=== PATIENT | male | born 1960 | race Caucasian/White ===

== ENCOUNTER 2019-03-16 06:49 | Inpatient (IN) | payer BC, SELFPAY ==
[2019-03-16] VITALS (9 sets, daily range): BP systolic 132–153; BP diastolic 81–96; PULSE 78–96; RESP 15–19; TEMP 36.2–36.7; O2SAT 94–97; BMI 33.3; BMI 29.8
--- NOTE | 2019-03-16 07:06 | DI.CT.S_ITS ---
PROCEDURE: CT HEAD/BRAIN WO CON INDICATIONS: right sided weakness ?LVO TECHNIQUE: Noncontrast 4.5 mm thick angled axial sections acquired from the foramen magnum to the vertex, with coronal and sagittal reformats. For radiation dose reduction, the following was used: automated exposure control, adjustment of mA and/or kV according to patient size. COMPARISON: None. FINDINGS: Image quality: Excellent. CSF spaces: Basal cisterns are patent. No extra-axial fluid collections. Ventricles are normal in size and shape. Brain: No midline shift. No intracranial masses or hemorrhage. Kraft-white matter interface is normal. Severe atherosclerosis of the right vertebral artery and possibly also involving the basilar artery are noted. Mild atherosclerosis is also present involving the right distal internal carotid artery. Skull and face: Calvarium and visualized facial bones are intact, without suspicious lesions. Sinuses: Visualized sinuses and mastoids are clear. IMPRESSION: 1. No acute intracranial hemorrhage. 2. Atherosclerotic changes of the intracranial portions of the bilateral internal carotid arteries and right vertebral artery. Note: The preliminary [facility] report and the final report are concordant. Dictated by: Zachary Morelos M.D. on 03/16/2019 at 6:48 Approved by: Zachary Morelos M.D. on 03/16/2019 at 6:51
--- NOTE | 2019-03-16 07:07 | DI.CT.S_ITS ---
PROCEDURE: CT ANGIO HEAD AND NECK INDICATIONS: right sided weakness LVO? TECHNIQUE: Pre-contrast 4.5 mm thick sections acquired from the foramen magnum to the vertex. After the administration of intravenous contrast, 1 mm thick sections acquired from the aortic arch through the [place]. Post-contrast 4.5 mm thick sections then re-acquired from the foramen magnum to the vertex. 3-dimensional masbacc-ulzajsiep-yfxoqzxirm (MIP) and/or volume rendering reformats were acquired of the central intracranial vasculature and neck separately. COMPARISON: None. FINDINGS: Image quality: Excellent. BRAIN: CSF spaces: Ventricles are normal in size and shape. Basal cisterns are patent. No extra-axial fluid collections. Brain: No midline shift. No intracranial bleeds or masses. Kraft-white matter interface appears intact. Skull and face: Calvarium and facial bones appear intact, without suspicious lesions. Orbits appear normal. Sinuses: Sinuses and mastoids are clear. HEAD CT ANGIOGRAPHY: Anterior circulation: Intracranial internal carotid arteries are normal in size and flow. There is mild atherosclerosis of the intracranial portion of the right internal carotid artery. No high-grade narrowing is evident. The flow within the paired anterior cerebral arteries is normal and symmetric. The flow within the middle cerebral arteries is normal and symmetric. The anterior communicating artery is seen. No aneurysms are seen. Posterior circulation: The right vertebral artery is dominant when compared to the left and terminates as the basilar artery. The left vertebral artery terminates as the posterior-inferior cerebellar artery, which is an anatomic variant. Mild to moderate atherosclerosis of the distal right vertebral artery and proximal aspect of the basilar artery is present without high-grade narrowing. Flow within the posterior cerebral arteries is normal and symmetric. No aneurysms are seen. NECK CT ANGIOGRAPHY: Carotid system: The great vessels demonstrate a conventional anatomy as they arise from the aortic arch. The origins of the common carotid arteries appear patent. The common carotid arteries demonstrate normal caliber and courses. The bifurcation regions are both widely patent. The internal carotid arteries demonstrate normal calibers and courses. Posterior circulation: The origins of the vertebral arteries both appear widely patent. The more superior extracranial portions of both vertebral arteries also demonstrate normal courses and calibers. They join to form a normal appearing basilar artery. Soft tissues: There is a heterogeneous low attenuation nodule identified involving the left thyroid lobe. Otherwise, the imaged neck soft tissues demonstrate no suspicious abnormalities. Bones: No suspicious bony lesions. Visualized cervical spine appears normally aligned. Prominent degenerative changes of the cervical spine are present. IMPRESSION: 1. Mild to moderate atherosclerosis involving the right intracranial internal carotid artery, right distal vertebral artery, and proximal right basilar artery without high-grade narrowing or occlusion. Intracranial vessels are otherwise widely patent. There are no aneurysms or vascular malformations. 2. Patent and otherwise unremarkable bilateral cervical carotid and vertebral arteries without significant atherosclerosis. There is no high-grade narrowing, occlusion, evidence to suggest dissection, or aneurysm. 3. No abnormal enhancement of the brain. 4. Right thyroid nodule. The thyroid ultrasound is recommended for further evaluation, which may be performed on a nonemergent basis. Any quantitative measurements of stenosis were performed using NASCET criteria. Dictated by: Zachary Morelos M.D. on 03/16/2019 at 6:57 Approved by: Zachary Morelos M.D. on 03/16/2019 at 7:06
[2019-03-16 07:20] LABS: Add Manual Diff / Slide Review NO; Basophils Absolute Auto 100 /uL (0-100); Basophils Percent Auto 0.8 % (0-2); Eosinophils Absolute Auto 100 /uL (0-450); Eosinophils Percent Auto 1.1 % (2-4); Hematocrit 47.3 % (41-53); Hemoglobin 16.5 g/dL (13.5-17.5); Lymphocytes Absolute Auto 1900 /uL (1100-4500); Lymphocytes Percent Auto 26.1 % (25-40); Mean Corpuscular HGB Conc 34.9 % (30-36); Mean Corpuscular Volume 86.1 fL (80-100); Monocytes Absolute Auto 500 /uL (0-900); Monocytes Percent Auto 7.1 % (3-14); Neutrophils Absolute Auto 4600 /uL (1500-7000); Neutrophils Percent Auto 64.9 % (50-75); Platelet Count 190 X10^3/uL (150-400); Red Blood Cell Count 5.49 X10^6/uL (4.5-5.9); Red Cell Distribution Width 13.3 % (11.6-14.8); White Blood Cell Count 7.1 X10^3/uL (4.5-11.0)
--- NOTE | 2019-03-16 07:28 | ED.NEUROSD ---
HPI - Neuro Symptoms/Deficit General Chief Complaint: Neuro Symptoms/Deficit Stated Complaint: Rt side weakness Time Seen by Provider: 03/16/19 06:59 Source: patient and family Mode of arrival: ambulatory Limitations: no limitations History of Present Illness HPI Narrative: Patient is a 58-year-old male who presents with right-sided weakness. He says he was having difficulty walking yesterday. He thought maybe he was sleep it off. However this morning he woke up and it is worse. Today his notices that his speech is different as well. He has no difficulty finding words it is slightly slurred. He denies any chest pain her palpitations. He has weakness in his right arm and leg. His noticed that 2 days ago he was more tired but did not notice any focal deficits. Onset (ago): day(s) Location: speech, right arm, right leg and ataxia Severity: moderate Quality: weak On Anticoagulants: No Related Data Home Medications Medication Instructions Recorded Confirmed No Known Home Medications 03/16/19 03/16/19 Allergies Allergy/AdvReac Type Severity Reaction Status Date / Time paprika Allergy Verified 03/16/19 07:08 Review of Systems Review of Systems ROS Unobtainable: All systems reviewed & are unremarkable except as noted in HPI and below Constitutional Denies chills, Denies fever(s), Denies headache(s), Denies lethargy and Reports weakness Eyes Denies change in vision, Denies eye discharge, Denies irritation and Denies loss of vision ENT Ears, Nose, Mouth, and Throat: Denies change in voice, Denies headache(s), Denies neck pain and Denies sore throat Cardiovascular Denies chest pain, Denies irregular heart rhythm, Denies lightheadedness, Denies palpitations, Denies dyspnea, Denies dyspnea on exertion and Denies orthopnea Respiratory Denies cough, Denies dyspnea, Denies dyspnea on exertion and Denies wheezing Gastrointestinal Gastrointestinal: Denies abdominal pain, Denies change in bowel habits, Denies diarrhea, Denies nausea and Denies vomiting Genitourinary Denies hematuria, Denies flank pain, Denies urinary incontinence and Denies urinary urgency Musculoskeletal Denies neck pain Neurologic Reports as per HPI, Denies headache(s), Reports lack of coordination, Reports focal weakness (Right-sided), Denies loss of vision and Reports weakness Endocrine Denies palpitations Allergic/Immunologic Denies wheezing [facility] Medical History Patient denies significant medical history (Acute) Social History Smoking Status: Never smoker Social History Smoking Status: Never smoker Exam Initial Vital Signs Initial Vital Signs: Vital Signs Temperature 98.1 F 03/16/19 06:58 Pulse Rate 91 H 03/16/19 06:58 Respiratory Rate 17 03/16/19 06:58 Blood Pressure 145/89 H 03/16/19 06:58 Pulse Oximetry 97 03/16/19 06:58 GENERAL: Well-appearing, well-nourished and in no acute distress. HEENT: Head atraumatic,EOMI, pupils reactive, right facial droop CARDIOVASCULAR: Regular rate and rhythm without murmurs, rubs or gallops. RESPIRATORY: Breath sounds equal bilaterally, no wheezes rales or rhonchi. ABDOMEN: Soft, nontender. Normoactive bowel sounds all 4 quadrants. No guarding or rebound. EXTREMITIES: Normal range of motion, no clubbing or edema. Neurovascularly intact NEUROLOGICAL: Alert and oriented x4. Slight slurring of right leg drift to gurney ataxia noted in right leg and right arm. SKIN: Warm, dry, no laceration, no petechiae, no rashes or lesions. Scores NIH Stroke Scale Level of Conciousness: Alert, keenly responsive Ask month/age: Answers both questions correctly. Open/close eyes, close hand: Performs both tasks correctly Best gaze horizontal: Normal Visual thomas: No visual loss Facial palsy: Minor paralysis, flattened nasolabial fold, asymmetry on smiling Left arm drift: No drift for full 10 sec Right arm drift: Drifts down, not to bed Left leg drift: No drift for full 10 sec Right leg drift: Drifts down, not to bed Limb ataxia: Present in two limbs Sensory on face/arms/legs: Normal, no sensory loss Best language: No aphasia, normal Dysarthria: Mild to mod,some slurring Extinction or inattention: No abnormality Total NIH Stroke scale score: 6 Course Orders Ordered: ED Orders 03/16/19 06:57 EKG-12 Lead Stat 03/16/19 07:06 CT head/brain wo con Stat Urine Drug Screen, Rapid Stat 03/16/19 07:07 CT angio head and neck Stat 03/16/19 07:11 Complete Blood Count AUTO DIFF Stat Comprehensive Metabolic Panel Stat Hemoglobin A1C% w Est Avg Glu Stat Lipid Panel Routine Partial Thromboplastin Time Stat Prothrombin Time INR Stat Troponin I Stat 03/16/19 10:04 MR stroke Stat 03/16/19 10:05 Education, smoking cessation ONGOING 03/16/19 10:07 Consult to Occupational Therapy Evaluate & Treat Consult to Physical Therapy Evaluate & Treat Consult to Speech Therapy Evaluate & Treat 03/16/19 10:09 EC echo doppler complete Stat Acetaminophen (Tylenol) 650 mg PO Q6HR PRN PRN Reason: As Needed for Fever/Mild Pain Bisacodyl (Dulcolax) 10 mg PO DAILY PRN PRN Reason: Constipation Calcium Carbonate (Tums) 1,000 mg PO Q4HR PRN PRN Reason: Dyspepsia Enoxaparin Sodium (Lovenox) 40 mg SUBCUT DAILY [facility] Sodium Chloride (Normal Saline 0.9%) 1,000 mls @ 150 mls/hr IV CONT HAYDEN Last Admin: 03/16/19 07:56 Dose: 150 mls/hr Magnesium Hydroxide (Milk Of Magnesia) 30 ml PO DAILY PRN PRN Reason: Constipation Ondansetron HCl (Zofran) 4 mg IV Q8HR PRN PRN Reason: Nausea And Vomiting Sennosides (Senna) 17.2 mg PO BEDTIME PRN PRN Reason: Constipation Discontinued Medications Aspirin (Aspirin Chew) 324 mg PO NOW ONE Stop: 03/16/19 08:10 Last Admin: 03/16/19 08:47 Dose: 324 mg Consultations Consultation #1: Neurology consult, at this time to close to 24 go even if there was large vessel occlusion. Does not appear to be large vessel occlusion., Time: 08:14 Vital Signs - 8 hr 03/16/19 06:58 03/16/19 07:45 03/16/19 08:00 Temperature 98.1 F Pulse Rate 91 H 85 84 Respiratory Rate 17 19 18 Blood Pressure 145/89 H Blood Pressure [Left Arm] 150/84 H 134/88 Pulse Oximetry 97 96 96 03/16/19 08:30 03/16/19 08:54 03/16/19 10:54 Temperature 97.2 F L Pulse Rate 86 91 H 81 Respiratory Rate 16 18 15 Blood Pressure 144/88 H Blood Pressure [Left Arm] 139/87 140/96 H Pulse Oximetry 95 97 96 MDM - Neuro Symptoms/Deficit Lab Data Attestation: I reviewed the patient's lab results. Result diagrams: 03/16/19 07:11 03/16/19 07:11 Lab Results 03/16/19 03/16/19 03/16/19 Range/Units 07:11 07:11 07:11 WBC 7.1 (4.5-11.0) X10^3/uL RBC 5.49 (4.5-5.9) X10^6/uL Hgb 16.5 (13.5-17.5) g/dL Hct 47.3 (41-53) % MCV 86.1 (80-100) fL MCH 30.0 (26-34) PG MCHC 34.9 (30-36) % RDW 13.3 (11.6-14.8) % Plt Count 190 (150-400) X10^3/uL Neut % (Auto) 64.9 (50-75) % Lymph % (Auto) 26.1 (25-40) % Day % (Auto) 7.1 (3-14) % Eos % (Auto) 1.1 L (2-4) % Baso % (Auto) 0.8 (0-2) % Neut # (Auto) 4600 (5568-7386) /uL Lymph # (Auto) 1900 (7443-2988) /uL Day # (Auto) 500 (0-900) /uL Eos # (Auto) 100 (0-450) /uL Baso # (Auto) 100 (0-100) /uL PT 12.8 H (10.1-12.7) SECONDS INR 1.1 (0.9-1.3) APTT 32 (26.4-36.2) SECONDS Sodium 141 (137-145) mmol/L Potassium 3.7 (3.4-5.1) mmol/L Chloride 107 (98-107) mmol/L Carbon Dioxide 23 (22-32) mmol/L BUN 14 (9-20) mg/dL Creatinine 0.90 (0.66-1.25) mg/dL Estimated GFR > 60.0 (>60) mL/min BUN/Creatinine Ratio 15.6 (6-22) Glucose 309 H (80-110) mg/dL Calcium 9.2 (8.4-10.2) mg/dL Total Bilirubin 1.2 (0.2-1.3) mg/dL AST 23 (17-59) IU/L ALT 26 (21-72) IU/L Alkaline Phosphatase 82 (38-126) U/L Troponin I 0.020 (0.01-0.034) ng/mL Total Protein 7.5 (6.3-8.2) g/dL Albumin 4.2 (3.5-5.0) g/dL Globulin 3.3 (1.7-4.1) g/dL Albumin/Globulin Ratio 1.3 (1.0-2.8) Point of Care Testing Glucose POC 271 Urine Dip Bedside Urine Glucose 1000 mg/dl Bedside Urine Bilirubin - Negative Bedside Urine Ketone ++ 40 Urine Specific [place] 1.015 Bedside Urine Occult Blood - Negative Bedside Urine pH 5.0 Bedside Urine Protein - Negative Bedside Urine Urobilinogen - Negative Bedside Urine Nitrite - Negative Bedside Urine Leukocytes - Negative Esterase Imaging Data CT scan - head: Radiologist's impression: PROCEDURE: CT HEAD/BRAIN WO CON INDICATIONS: right sided weakness ?LVO TECHNIQUE: Noncontrast 4.5 mm thick angled axial sections acquired from the foramen magnum to the vertex, with coronal and sagittal reformats. For radiation dose reduction, the following was used: automated exposure control, adjustment of mA and/or kV according to patient size. COMPARISON: None. FINDINGS: Image quality: Excellent. CSF spaces: Basal cisterns are patent. No extra-axial fluid collections. Ventricles are normal in size and shape. Brain: No midline shift. No intracranial masses or hemorrhage. Kraft-white matter interface is normal. Severe atherosclerosis of the right vertebral artery and possibly also involving the basilar artery are noted. Mild atherosclerosis is also present involving the right distal internal carotid artery. Skull and face: Calvarium and visualized facial bones are intact, without suspicious lesions. Sinuses: Visualized sinuses and mastoids are clear. IMPRESSION: 1. No acute intracranial hemorrhage. 2. Atherosclerotic changes of the intracranial portions of the bilateral internal carotid arteries and right vertebral artery. Note: The preliminary [facility] report and the final report are concordant. Dictated by: Zachary Morelos M.D. on 03/16/2019 at 6:48 CT angio: Radiologist's impression: PROCEDURE: CT ANGIO HEAD AND NECK INDICATIONS: right sided weakness LVO? TECHNIQUE: Pre-contrast 4.5 mm thick sections acquired from the foramen magnum to the vertex. After the administration of intravenous contrast, 1 mm thick sections acquired from the aortic arch through the [place] of [place]. Post-contrast 4.5 mm thick sections then re-acquired from the foramen magnum to the vertex. 3-dimensional yvgnvih-eahnrdirj-kjhcrsogqi (MIP) and/or volume rendering reformats were acquired of the central intracranial vasculature and neck separately. COMPARISON: None. FINDINGS: Image quality: Excellent. BRAIN: CSF spaces: Ventricles are normal in size and shape. Basal cisterns are patent. No extra-axial fluid collections. Brain: No midline shift. No intracranial bleeds or masses. Kraft-white matter interface appears intact. Skull and face: Calvarium and facial bones appear intact, without suspicious lesions. Orbits appear normal. Sinuses: Sinuses and mastoids are clear. HEAD CT ANGIOGRAPHY: Anterior circulation: Intracranial internal carotid arteries are normal in size and flow. There is mild atherosclerosis of the intracranial portion of the right internal carotid artery. No high-grade narrowing is evident. The flow within the paired anterior cerebral arteries is normal and symmetric. The flow within the middle cerebral arteries is normal and symmetric. The anterior communicating artery is seen. No aneurysms are seen. Posterior circulation: The right vertebral artery is dominant when compared to the left and terminates as the basilar artery. The left vertebral artery terminates as the posterior-inferior cerebellar artery, which is an anatomic variant. Mild to moderate atherosclerosis of the distal right vertebral artery and proximal aspect of the basilar artery is present without high-grade narrowing. Flow within the posterior cerebral arteries is normal and symmetric. No aneurysms are seen. NECK CT ANGIOGRAPHY: Carotid system: The great vessels demonstrate a conventional anatomy as they arise from the aortic arch. The origins of the common carotid arteries appear patent. The common carotid arteries demonstrate normal caliber and courses. The bifurcation regions are both widely patent. The internal carotid arteries demonstrate normal calibers and courses. Posterior circulation: The origins of the vertebral arteries both appear widely patent. The more superior extracranial portions of both vertebral arteries also demonstrate normal courses and calibers. They join to form a normal appearing basilar artery. Soft tissues: There is a heterogeneous low attenuation nodule identified involving the left thyroid lobe. Otherwise, the imaged neck soft tissues demonstrate no suspicious abnormalities. Bones: No suspicious bony lesions. Visualized cervical spine appears normally aligned. Prominent degenerative changes of the cervical spine are present. IMPRESSION: 1. Mild to moderate atherosclerosis involving the right intracranial internal carotid artery, right distal vertebral artery, and proximal right basilar artery without high-grade narrowing or occlusion. Intracranial vessels are otherwise widely patent. There are no aneurysms or vascular malformations. 2. Patent and otherwise unremarkable bilateral cervical carotid and vertebral arteries without significant atherosclerosis. There is no high-grade narrowing, occlusion, evidence to suggest dissection, or aneurysm. 3. No abnormal enhancement of the brain. 4. Right thyroid nodule. The thyroid ultrasound is recommended for further evaluation, which may be performed on a nonemergent basis. Any quantitative measurements of stenosis were performed using NASCET criteria. Dictated by: Zachary Morelos M.D. on 03/16/2019 at 6:57 ECG Data Attestation: I personally reviewed and interpreted this ECG as follows: Prior ECG tracings: not available for review Interpretation: Sinus rhythm rate 86 T-wave inversion noted in lead 3 no other leads no ST elevation no ST depression MDM Narrative Medical decision making narrative: Patient not a candidate for thrombectomy or tPA. Dr. urias accepts the patient for further workup and evaluation Discharge Plan Departure Patient Disposition: Admitted As Inpatient Clinical Impression: Cerebrovascular accident Discharge Date/Time: 03/16/19 10:35 Interventions: ED Discharge Assessment Last Done: 03/16/19 10:35 Admit Date/Time: 03/16/19 10:23 Admit Provider: Kelly Glover
[2019-03-16 07:30] LABS: INR 1.1 (0.9-1.3); Prothrombin Time 12.8 SECONDS (10.1-12.7)
[2019-03-16 07:32] LABS: PTT Partial Thromboplastin Tim 32 SECONDS (26.4-36.2)
[2019-03-16 07:34] LABS: Alanine Aminotransferase 26 IU/L (21-72); Albumin 4.2 g/dL (3.5-5.0); Albumin Globulin Ratio 1.3 (1.0-2.8); Alkaline Phosphatase 82 U/L (38-126); Aspartate Aminotransferase 23 IU/L (17-59); BUN Creatinine Ratio 15.6 (6-22); Bilirubin Total 1.2 mg/dL (0.2-1.3); Blood Urea Nitrogen 14 mg/dL (9-20); Calcium 9.2 mg/dL (8.4-10.2); Carbon Dioxide 23 mmol/L (22-32); Chloride 107 mmol/L (98-107); Estimated Glomerular Filt Rate > 60.0 mL/min (>60); Globulin 3.3 g/dL (1.7-4.1); Glucose 309 mg/dL (80-110); HEMOLYSIS < 15 (0-50); Potassium 3.7 mmol/L (3.4-5.1); Sodium 141 mmol/L (137-145); Total Protein 7.5 g/dL (6.3-8.2)
[2019-03-16] MEDS: SODIUM CHLORIDE 0.9% 1,000 ML 150 ML IV ×2 (07:56→16:57)
--- NOTE | 2019-03-16 08:02 | PC.NURSE ---
speech, denies fever,vomiting or diarrhea. denies headache or visual changes. reports, felt wooble couple of days ago, today with right sided weakness and speech changes. denies trauma. last solid meal last night.
[2019-03-16] MEDS: ASPIRIN 81 MG TAB 324 MG PO (08:47)
--- NOTE | 2019-03-16 10:04 | DI.MRI.S_ITS ---
PROCEDURE: MR STROKE Pre- and post-contrast brain MRI, non-contrast brain MR angiogram, pre- and postcontrast neck MR angiogram INDICATIONS: R sided hemiparesis, facial droop, ataxia, slurred speech TECHNIQUE: Brain: Noncontrast axial T1 spin echo, axial T2 fast spin echo, sagittal and axial FLAIR, coronal T2 fast spin echo, axial gradient echo, axial diffusion and ADC through the brain. After the administration of contrast, axial 3D VIBE of the cranial vasculature and brain. Brain MRA: Non-contrast 3-D time of flight MR angiogram, with multiple wpmzpwi-hosmhmudn-dljdnwdokz (MIP) reformats performed. Neck MRA: Axial and sagittal TruFISP through the neck. Coronal dynamic MR angiogram during administration of contrast in the arterial and venous phases, with 3-dimenstional lnztxhc-xsdayytoq-ujkfnxbbwr (MIP) reformats constructed from subtraction images. COMPARISON: [facility], CT, CT ANGIO HEAD AND NECK, 03/16/2019, 7:27. [facility], CT, CT HEAD/BRAIN WO CON, 03/16/2019, 7:12. FINDINGS: Image quality: Diagnostic. BRAIN: CSF spaces: Ventricles are normal in size and shape. Basal cisterns are patent. No extra-axial fluid collections. Brain: No intracranial bleeds or mass effects. Kraft-white matter interface is normal. A few small foci of vague areas of increased flair signal are identified within the superior left parietal lobe (image 21, series 19), right frontal lobe (image 19, series 19), and left occipital lobe (image 11, series 19). There is increased signal evident involving the anterior margin of the left april, which demonstrates increased diffusion signal. Corresponding decreased signal intensity is evident on the ADC images. No additional areas of diffusion restriction are present within the brain. Normal intravascular flow voids are present. No abnormal intracranial enhancement. Skull and face: Calvarial marrow signal is normal. Orbits appear normal. Sinuses: There is a small right mastoid effusion. Otherwise, the paranasal sinuses mastoid air cells are clear. BRAIN MR ANGIOGRAM: Anterior circulation: Intracranial internal carotid arteries are normal in size and enhancement. The atherosclerotic irregularity noted involving the intracranial portion of the right internal carotid artery is not evident on MRI. The flow within the paired anterior cerebral arteries is normal and symmetric. The left anterior cerebral artery obtained to exclude slowly through the anterior communicating artery. The flow within the middle cerebral arteries is normal and symmetric. The anterior communicating artery is seen. No stenoses, occlusions, or aneurysms. Posterior circulation: Again, the right vertebral artery is dominant when compared to the left and the right vertebral artery is noted to terminates as the basilar artery. The left vertebral artery appears to terminate as the posterior-inferior cerebellar artery. The atherosclerotic irregularity noted involving the distal right vertebral artery and basilar artery is not readily apparent on MRI. The flow within the posterior cerebral arteries is normal and symmetric. No stenoses, occlusions, or aneurysms. NECK MR ANGIOGRAM: Carotids: Great vessels demonstrate a conventional anatomy as they arise from the aortic arch. The origins of the common carotid arteries appear patent. The calibers and courses of both common carotid arteries are normal. The bifurcation regions appear normal bilaterally. The internal carotid arteries demonstrate normal course and caliber. Posterior circulation: The origins of the vertebral arteries appear patent. More superior portions of both vertebral arteries demonstrate normal course and caliber, and join to form a normal appearing basilar artery. Miscellaneous: Subclavian arteries appear patent. Pre-contrast images through the neck show no soft tissue abnormalities. IMPRESSION: BRAIN MRI: 1. Acute left pontine ischemia without hemorrhagic conversion. 2. No additional areas of acute ischemia within the brain. 3. Vague areas of increased flair signal within the supratentorial brain likely represent mild chronic small vessel ischemic changes. 4. Small inferior right mastoid effusion. 5. No abnormal enhancement or suspicious parenchymal lesions. 6. Small inferior right mastoid effusion. BRAIN MR ANGIOGRAM: No occlusions, aneurysms, or high-grade narrowing of the intracranial vessels. NECK MR ANGIOGRAM: No significant atherosclerosis, occlusions, high-grade narrowing, or aneurysms of the cervical carotid or vertebral arteries. Dictated by: Zachary Morelos M.D. on 03/16/2019 at 12:56 Approved by: Zachary Morelos M.D. on 03/16/2019 at 13:07
--- NOTE | 2019-03-16 10:09 | DI.ECHO.S_ITS ---
[facility] +---------+ : : [address] : : : : [id number] : : : : Phone: [phone]+ Echocardiogram Report + + :Name: JOVANNA SHEIKH Study Date: 03/16/2019 Height: 74 in : :[facility] Weight: 260 lb : : Gender: Male BSA: 2.4 m2 : :: 1960 Age: 58 yrs BP: 144/88 mmHg: :Reason For Study: CVA : :Ordering Physician: Ce : :Hospitalist Performed By: Aretha Turcios : :Referring: PAMELA ALCANTARA : + + Interpretation Summary The left ventricle is normal in size. The ejection fraction is estimated to be 50-55%. There is posterolateral wall hypokinesis. There is basal anterolateral wall hypokinesis. There is mid anterolateral wall hypokinesis. There is apical inferior wall hypokinesis. There is no LV thrombus. The right ventricle is normal in size and function. Injection of contrast documented an interatrial shunt. No significant valvular pathology seen. The ascending aorta is moderately enlarged. The aortic arch is mild-moderately enlarged. The IVC is dilated (diameter is greater than 2.1 cm) yet it collapses greater than 50% with a sniff. This suggests a right atrial pressure of 8 mm Hg. The patient was in normal sinus rhythm during the exam. Procedure: A two-dimensional transthoracic echocardiogram with color flow and Doppler was performed. There is no prior echocardiogram noted for this patient. A saline contrast injection was performed to assess for cardiac shunting. The study quality was technically difficult. The patient was in normal sinus rhythm during the exam. Left Ventricle: The left ventricle is normal in size. There is no ventricular septal defect visualized. There is no thrombus. The ejection fraction is estimated to be 50-55%. There is posterolateral wall hypokinesis. There is basal anterolateral wall hypokinesis. There is mid anterolateral wall hypokinesis. There is apical inferior wall hypokinesis. Diastolic parameters suggest a relaxation abnormality of the left ventricle, consistent with probable normal filling pressures. Right Ventricle: The right ventricle is normal in size and function. Atria: Both atria are normal in size. Injection of contrast documented an interatrial shunt. Mitral Valve: The mitral valve is normal in structure and function. There is trace mitral regurgitation. Aortic Valve: The aortic valve is normal in structure and function. There is no aortic valve stenosis. No aortic regurgitation is present. Tricuspid Valve: The tricuspid valve is not well visualized, but is grossly normal. Pulmonary artery pressures cannot be estimated because of the lack of a measurable TR jet velocity. There is trace tricuspid regurgitation. Pulmonic Valve: The pulmonic valve is not well visualized. Great Vessels: The aortic root is normal size. The ascending aorta is moderately enlarged. The aortic arch is mild-moderately enlarged. The IVC is dilated (diameter is greater than 2.1 cm) yet it collapses greater than 50% with a sniff. This suggests a right atrial pressure of 8 mm Hg. Pericardium/ Pleura There is no pericardial effusion. MMode/2D Measurements & Calculations LVIDd: 5.2 cm LVOT diam: 2.4 cm LVIDs: 3.8 cm Ao root diam: 4.0 cm FS: 27.7 % Aortic Jxn: 3.5 cm EPSS: 1.0 cm asc Aorta Diam: 4.3 cm IVSd: 1.2 cm Ao Arch Diam (Prox Trans): 3.7 cm LVPWd: 1.00 cm LV tobar. diameter/BSA (cm/m^2): 2.2 LV sys. diameter/BSA (cm/m^2): 1.6 LA A2 area: 24.1 cm2 RA long axis: 5.3 cm LA A4 area: 18.4 cm2 RA area: 17.4 cm2 LA length (vol): 5.0 cm RA vol: 48.8 ml LA vol: 75.7 ml RA : 20.1 ml/m2 LA vol index: 31.2 ml/m2 IVC diam: 2.6 cm RVD1 (basal): 3.7 cm RVD2 (mid): 3.3 cm TAPSE: 2.4 cm Doppler Measurements & Calculations Ao V2 max: 105.3 cm/sec LVOT Max Conor: 75.6 cm/sec Ao V2 mean: 81.4 cm/sec LV V1 max P.3 mmHg Ao max P.4 mmHg LV V1 VTI: 14.7 cm Ao mean P.8 mmHg ROLANDO(I,D): 3.1 cm2 Ao V2 VTI: 21.2 cm ROLANDO(V,D): 3.2 cm2 sev ratio: 0.69 ROLANDO indexed to BSA (cm^2/m^2): 1.3 MV E max conor: 51.8 cm/sec PA V2 max: 103.1 cm/sec MV A max conor: 91.0 cm/sec PA V2 mean: 59.1 cm/sec MV E/A: 0.57 PA mean P.7 mmHg Med Peak E' Conor: 4.9 cm/sec PA Accel Time: 0.04 sec E/E' med: 10.5 Lat Peak E' Conor: 7.4 cm/sec E/E' lat: 7.0 E/e' average: 8.7 MV dec time: 0.23 sec MV P1/2t: 67.4 msec MV P1/2t max conor: 51.9 cm/sec SV(LVOT): 65.7 ml MVA(P1/2t): 3.3 cm2 Reading Physician:ANAMARIA
--- NOTE | 2019-03-16 10:25 | PC.NURSE ---
called rn for reports, will call back.
[2019-03-16 11:39] LABS: Cholesterol 197 mg/dL (140-199); HDL Cholesterol 38 mg/dL (40-60); LDL Cholesterol Calculated 125 mg/dL (<100); Triglycerides 170 mg/dL (35-150)
--- NOTE | 2019-03-16 12:03 | ST.IPCSEOM ---
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 He says he was having difficulty walking yesterday. He thought maybe he could sleep it off. However this morning he woke up and his notices that his speech was different as well. Pt described his speech as slower and that his tongue felt thick. He also reported that he noticed a difference between his right and left side and knew he had a stroke . Clinical Swallow Evaluation ordered to r/o/ dysphagia. Subjective Observations Pt had just been transferred to acute care from ED. Pt was accompanied by his . Pt was alert and oriented. He described the events of the last 24 hours leading to hospitalization. Evaluation Liquids Trialed Ice Chips Thin Solids Trialed Puree Dysphagia Mechanical Dysphagia Advanced Mechanical Soft Regular Administration Type Tea Spoon Cup Single Sip Controlled Cup Sip Cup Consecutive Sips Straw Self-Feeding Oral Impairment Mildly Impaired Oral Strategies Upright at 90 degrees Lingual Sweep Controlled Bite/Sip Size Oral Phase Comments Pt presented with a right side facial droop with reduced ROM of the lips/smile and tongue to the right side. Pt's velum was observed to raise with slight deviation toward the left indicating weakness. Dentition adequate for mastication with rotary chew. Mild pocketing on the right side with pt able to clear following cue. Strength of oral structures appeared to be adequate. Pt's speech was observed to be slow in rate and mildly dysarthric. Diadochokineses was observed to be slow and labored. Pharyngeal Impairment WFL Pharyngeal Strategies Sitting Upright (90 deg) Supraglottic Swallow Small Bites and Sips Pharyngeal Phase Comments Pt presented with adequate hyolaryngeal elevation with anterior hyoid movement upon palpation. He did cough with initial ice cube trial, but there were no other coughs/ chokes observed. After each trial the pt noted that the food went down ok. No wet voicing observed following trials that would indicate pharyngeal pooling. Swallow response was WFL. Pt's voice was observed to be hoarse/breathy. The pt and his noted that it is not his usual voice. Potential for a unilateral vocal fold paresis re: right side weakness. Will be monitored to determine needed for ENT consult. Findings Dysphagia Type mild oropharyngeal dysphagia Rehabilitation Potential Excellent Impressions Pt presents with mild oropharyngeal dysphagia with dysarthric speech and a hoarse /breathy voice. He also presented with right side weakness, right facial droop and reduced ROM of the lips/ face and tongue. Pt is right-handed with noted difficulty with raising hand up to his mouth to self-feed. Diet Recommendations Liquids Order Thin Diet Order Regular Medication Recommendations As Tolerated Aspiration Precautions Recommended Precautions Upright at 90 Degrees Effortful Swallow Supraglottic Swallow Treatment Plan Placement Recommendations after Home Discharge Outpatient Therapy Appropriate for Therapy Yes Therapy Recommendations Speech therapy to address oral strength, ROM and increased coordination effecting speech Dysphagia Goals Pt will participate in OM exercises to increase strength , ROM and coordination of structures needed for speech and swallowing. Pt will safely tolerate least- restrictive diet without overt s/sx of SENIOR ASSISTANT MANAGER Follow Up 1-2x/day
--- NOTE | 2019-03-16 12:11 | PC.NURSE ---
PT admitted to room 211 at 1050am. VS taken and IVf infusing at 150cc/hr. He has been admitted to the hospital up in acute care and speech has put pt on a regular diet with thin liquids. Report passed off to ALONDRA Jacob.
--- NOTE | 2019-03-16 12:13 | ST.IPCSEOM ---
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 He says he was having difficulty walking yesterday. He thought maybe he could sleep it off. However this morning he woke up and his notices that his speech was different as well. Pt described his speech as slower and that his tongue felt thick. He also reported that he noticed a difference between his right and laeft side and knew he had a stroke . Clinical Swallow Evaluation ordered to r/o/ dysphagia. Subjective Observations Pt had just been transfered to acute care from ED. Pt was accompanied by his . Pt was alert and oriented. He described the events of the last 24 hours leading to hospiatization. Evaluation Liquids Trialed Ice Chips Thin Solids Trialed Puree Dysphagia Mechanical Dysphagia Advanced Mechanical Soft Regular Administration Type Tea Spoon Cup Single Sip Controlled Cup Sip Cup Consecutive Sips Straw Self-Feeding Oral Impairment Mildly Impaired Oral Strategies Upright at 90 degrees Lingual Sweep Controlled Bite/Sip Size Oral Phase Comments Pt presented with a right side facial droop with reduced ROM of the liips/smile and tongue to the right side. Pt's velum was observed to raise with slight deviation toward the left iindicating weakness. Dentition adequate for mastication with rotary chew. Mild pocketing on the right side with pt able to clear following cue. Strength of oral structures appeared dima be adequate. Pt's speech was observed to be slow in rate and mildly dysarthric. Diadochokineses was observed to be slow and labored. Pharyngeal Impairment WFL Pharyngeal Strategies Sitting Upright (90 deg) Supraglottic Swallow Small Bites and Sips Pharyngeal Phase Comments Pt presented with adequate hyolaryngeal elevation with anterior hyoid movement upon palpation. He did cough with initial ice cube trial, but there were no other coughs/ chokes observed. After each trial the pt noted that the food went down ok. No wet voicing observed following trials that would indicate pharyngeal pooling. Swalllow response was WFL. Pt's voice was observed to be hoarse/breathy. The pt and his noted that it is not his usual voice. Potential for a unilateral vocal fold paresis re: right side weakness. WIll be monitored to determine nneed for ENT consult. Findings Dysphagia Type mild oropharyngeal dysphagia Rehabilitation Potential Excellent Impressions Pt presents with mild oropharyngeal dysphagia with dysarthric speech and a hoarse /breathy voice. He also presented with right side weakness, right facial droop and reduced ROM of the lips/ face and tongue. Pt is right-handed with noted difficulty with raising hand up to his mouth to self-feed. Diet Recommendations Liquids Order Thin Diet Order Regular Medication Recommendations As Tolerated Aspiration Precautions Recommended Precautions Upright at 90 Degrees Effortful Swallow Supraglottic Swallow Treatment Plan Placement Recommendations after Inpatient Rehab Facility Discharge Appropriate for Therapy Yes Therapy Recommendations Speech therapy to address oral strength, ROM and increased coordination effecting speech Dysphagia Goals Pt will participate in OM exercises to increase strength , ROM and coordination of structureds needed for speech and swallowing. 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
--- NOTE | 2019-03-16 13:09 | PT.IIE ---
Medical History (Last Reviewed 03/16/19 @ 07:36 by Eva Mckeon DO) Patient denies significant medical history (Acute) Physical Therapy Inpatient Evaluation/Re-Eval M1 PT/OT-IP Prior Functional Status Start: 03/16/19 12:46 Freq: NEEDED Status: Active Protocol: Document 03/16/19 12:20 IJS (Rec: 03/16/19 13:09 IJS [id number]) Medical Review Prior Functional Status Medical History Reviewed Yes Communication [place] Mobility and Gait Independent Activities of Daily Living and IADL's Independent Prior Functional Level (Other details) Just returned from a Cruise vacation Social History Household Members spouse Living Arrangements House Number of Floors (Floors) One Floor Home Environment Standard Height Toilet Employment Status Retired M2 PT-IP Current Condition Start: 03/16/19 12:46 Freq: NEEDED Status: Active Protocol: Document 03/16/19 12:20 IJS (Rec: 03/16/19 13:09 IJS [id number]) Physical Therapy Current Condition Current Condition Evaluation Date 03/16/19 Treatment Diagnosis R/O CVA right hemiparesis Onset Date 03/15/19 Weight Bearing Status Weight Bearing Status Weight Bear as Tolerated M3 PT-IP Subjective Start: 03/16/19 12:46 Freq: NEEDED Status: Active Protocol: Document 03/16/19 12:20 IJS (Rec: 03/16/19 13:09 IJS [id number]) Subjective Physical Therapy Visit Type Type Initial Evaluation Visit Start Time 12:20 Visit Stop Time 12:45 Total Visit Minutes 25 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 Reports having some trouble with speech. Patient Goals Wants to regain his independence M4 PT-IP Mobility and Gait Start: 03/16/19 12:46 Freq: NEEDED Status: Active Protocol: Document 03/16/19 12:20 IJS (Rec: 03/16/19 13:09 IJS [id number]) PT-Bed Mobility Assessment Rolling Level of Assist Moderate Assistance 1 Person Assistance Supine to Sit Supine to Sit Moderate Assistance Sit to Supine Sit to Supine Minimal Assistance Scooting Scooting to Edge of Bed Contact Guard Assistance Scooting Up and Down in Bed Standby Assistance PT-Transfer Assessment Sit to and From Stand Sit to and from Stand Minimal Assistance Equipment Transfer Assistive Device Bed Rail Gait Belt Front Wheeled Walker Orthotic/Prosthetic Devices or Brace: No Transfers Transfer Destination Bed Chair Toilet Transfer Technique Stand Step Pivot Transfer Ability Level of Assist Minimal Assistance 1 Person Assistance Gait Assessment Gait Gait Assistance Required: Minimum Assistance 1 Person Assist Distance (Feet) 20 Able to Maintain Weight Bearing Status Yes During Gait Assistive Devices Assistive Device Gait Belt Front Wheeled Walker Orthotic/Prosthetic Devices or Brace: No Gait Deviations General Gait Pattern Ataxic Decreased Stride Length Factors Limiting Gait Function Factors Limiting Gait Function Decreased Strength Incoordination Comments Gait Comments Verbal cues for keeping right hand on walker and use of grab bar in the bathroom. Patient confident he won't fall but right leg is unsteady. PT-Balance Assessment Sitting Balance and Reactions Static Sitting Balance Ability Good Dynamic Sitting Balance Ability Fair Standing Balance and Reactions Static Standing Balance Ability Good Dynamic Standing Balance Ability Fair Device Used FWW Comments Other Balance Tests/Deviations/Treatment Able to march in place and : shift weight at bedside with walker CGA. M5 PT-IP Objective Assessments Start: 03/16/19 12:46 Freq: NEEDED Status: Active Protocol: Document 03/16/19 12:20 IJS (Rec: 03/16/19 13:09 IJS [id number]) Orientation Orientation/Cognition Level of Alertness Alert Orientation Name Age Birthday Month Date Year Day of Week Place Situation Safety Awareness Understands Safety Issues Memory Description No Deficits Noted Comments Tends to be a little impulsive , cues to slow down. Gross Range of Motion Upper Extremity ROM Assessment Within Functional Limits Lower Extremity ROM Assessment Right Impaired Impairments Decreased dorsi flexion Strength Upper Extremity Strength Assessment Right Impaired Shoulder 3-/5 Wrist 3-/5 Hand 3/5 Lower Extremity Strength Assessment Right Impaired Knee 3/5 Ankle 2/5 Coordination Assessment Gross Coordination Gross Coordination Impaired Assessment Finger to Nose Test Minimal Impairment Pronation/Supination Test Minimal Impairment Heel on Ruiz Test Minimal Impairment Coordination Comments Slow moving right UE/LE, slight upgoing toe on the right to Babinski Sensation Assessment Sensation Gross Sensation WNL Muscle Tone Muscle Tone WNL No Muscle Tone Location Right Lower Extremity Type of Tone Hypotonicity Manifistation of Tone Ataxia Right Upper Extremity Type of Tone Hypotonicity Manifistation of Tone Ataxia M6 PT-IP Treatment Start: 03/16/19 12:46 Freq: NEEDED Status: Active Protocol: Document 03/16/19 12:20 IJS (Rec: 03/16/19 13:09 [facility] [id number]) Physical Therapy Treatment Exercises Exercises Ankle Pumps Quad Sets Seated Knee Flexion/Extension Equipment Issued Equipment Type and Company FWW use M7 PT-IP Assessment and Plan Start: 03/16/19 12:46 Freq: NEEDED Status: Active Protocol: Document 03/16/19 12:20 IJS (Rec: 03/16/19 13:09 [facility] [id number]) PT Summary Assessment and Plan Potential Rehabilitation Potential Good Status of Condition at Evaluation Evolving Summary Impairments Strength Balance Coordination Tone Gait Activity Tolerance Assessment Summary Day of admit with obvious signs of a CVA with right hemiparesis. Is a good candidate for inpateint rehab. Close guarding with gait but right knee did not buckle with use of walker. Cues for safety, hand placement and to slow down. Goals Bed Mobility Goal Standby Assistance Transfer Goal Standby Assistance Gait Goal Contact Guard Assistance Gait Distance 200 Days to Meet Goals 3 Frequency of Treatment Frequency Of Treatment Twice a Day Treatment Plan Physical Therapy Treatment Plan Bed Mobility Training Transfer Training Gait Training Therapeutic Exercise Balance Retraining Discharge Planning Neuromuscular Re-ed Coordination Retraining Recommendations To Nursing Amount of Assist Needed 1 Person Assist Discharge Recommendations PT Discharge Recommendations Acute Rehab Equipment Needed for Home Before May want to trial a hemiwalker Discharge next visit.
--- NOTE | 2019-03-16 13:14 | PC.NURSE ---
1245 Pt gone for MRI via stretcher. at bedside. Pt denies ever having DX of diabetes, glucose 302 in the ED, 239 at 1225 .
--- NOTE | 2019-03-16 13:41 | PC.NURSE ---
1330 Pt returned to room from MRI via stretcher. Pt is awake, able to roll over to the bed. Pt has limited strength to the R side. Is able to hold his cell phone with R hand. remains at side. Pt speach is clear, slightly slower than normal per the .
[2019-03-16 16:46] LABS: Urine Amphetamines Negative (Negative); Urine Barbiturates Negative (Negative); Urine Benzodiazepines Negative (Negative); Urine Cocaine Negative (Negative); Urine MDMA Negative (Negative); Urine Methadone Negative (Negative); Urine Methamphetamines Negative (Negative); Urine Morphine/Opi cutoff 2000 Negative (Negative); Urine Oxycodone Negative (Negative); Urine Phencyclidine Negative (Negative); Urine Tetrahydrocannabinol Negative (Negative); Urine Tricyclic Antidepressant Negative (Negative)
--- NOTE | 2019-03-16 18:35 | P.HP_ITS ---
History of Present Illness Chief complaint: Rt side weakness Narrative: The patient is a 58-year-old male who presented to the ED on 03/16/2019 with right-sided weakness. Patient was last seen well on 03/14/2019, at that time he felt significantly more fatigued and energy depleted than he in the past. On 03/15/2019 patient reports feeling wobbly and describes his gait as shuffling. Patient's felt patient's overall disposition was much more slower than his baseline. Patient reports waking up with bother upper and lower extremity right sided weakness this morning. Denies presence of weakness prior to bedtime. This morning also noted to have slurring of words. Patient does not take any medications or OTC supplements. At times notes drinking a smoothe cocktail, one of the ingredients is TUMS. He is known to have a BP of 140/90 for at least 30+ years, by report. He was never on any anti-hypertensive agents. Admits to polydipsia and polyuria over the past 1.5 years. Denies CP, palpitations, dizziness, lightheadedness, abdominal pain, nausea, vomiting, diarrhea, myalgia and myopathy. Snores while sleeping at times. Not known to have prior history of heart disease, DE, cerebrovascular events, thrombosis, or diabetes. Patient relocated from [place] 2 years ago, after residential. He does not have a PCP. He has not had a preventive follow-up care for at least two years. Family history is significant for hemorrhagic CVA (father, age 90) and diabetes (mother and sister). Lifelong non-smoker. EtOH consumption is rare. Patient expressed reluctance on starting blood pressure and lipid-lowering agents. ED presentation and work-up Labs 03/16/2019 @ 0711 WBC 7.1 Hgb 16.5 Plt 190 Trop 0.020 Na 141 K 3.7 Cl 107 Ca 9.2 CO2 23 BUN14 Cr 0.9 BUN/Cr 15.6 Glu 309 T. Bili 1.2 AST 23 ALT 26 Alk Phos 82 Urine drug scree is negative CT head, 03/16/2019. No acute intracranial hemorrhage. Atherosclerotic changes of the intracranial portions of the bilateral internal carotid arteries and right vertebral artery. CTA head and neck, 03/16/2019. Gmgy-sk-slnccahp atherosclerosis involving the right intracranial internal c arotid artery, right distal vertebral artery, and proximal right basilar artery WITHOUT high-grade narrowing or occlusion. Intracranial vessels are otherwise widely patent. There are no aneurysms or vascular malformations. Patent and otherwise unremarkable bilateral cervical carotid and vertebral arteries without significant atherosclerosis. There is no high-grade narrowing, occlusion, or evidence to suggest dissection or aneurysm. No abnormal enhancement of the brain. Right thyroid nodule. The thyroid ultrasound is recommended for throughout evaluation, which may be performed on a non-emergent basis. Additional post-admission work-up A1C 11.0 Chol 197 LDL 125 HDL 38 Trig 170 Brain MRI, 03/16/2019. Acute left pontine ischemia without hemorrhagic conversion. No additional areas of acute ischemia within the brain. Vague areas of increased flair signal wit hin the supratentorial brain likely represent mild chronic small vessel ischemic changes. No abnormal enhancement or suspicious parenchymal lesions. Small inferior right mastoid effusion. Brain MR angiogram, 03/16/2019. No occlusions, aneurysms, or high-grade narrowing of the intracranial vessels. Neck MR Angiogram, 03/16/2019. No significant atherosclerosis, occlusions, high- grade narrowing, or aneurysms of the cervical carotid or vertebral arteries. ECHO, 03/16/2019. LVEF 50-55%. Posterolateral, basal anterolateral, mid-anterolateral, and apical inferior wall hypokinesis present. No LV thrombus. RV normal in size and function. No significant valvular pathology. Injection of contrast documented and inter atrial shunt. Ascending aorta is moderately enlarged. Aortic arch is ftfi-mo-tzmgwmlcwe enlarged. IVC is dilated (diameter is greater than 2.1 cm) use of collapses greater than 50% with a sniff. This suggests a right atrial pressure of 8 mmHg. Patient History Medical History (Updated 03/16/19 @ 20:12 by ENRRIQUE Jorge) Essential hypertension (Acute) Surgical History History of meniscectomy of left knee (Acute) History of repair of hiatal hernia (Acute) Social History household members: spouse Smoking Status: Never smoker Family & Social History Social History: household members . Lives w/ spouse. Prior Living Arrangements House Safety & Behavioral: Feels Safe in Current Yes Environment Been Physically Hurt or No Threatened By a Person Suicidal Ideation Description None Suicide Plan Description No Plan Tobacco & Substance use: Smoking Status Never smoker alcohol intake frequency Rarely Substance Use Type Denies use. Never. Meds Home Medications Medication Instructions Recorded Confirmed Type No Known Home Medications 03/16/19 03/16/19 History Allergies Allergy/AdvReac Type Severity Reaction Status Date / Time paprika Allergy Verified 03/16/19 07:08 Review of Systems Review of Systems All systems reviewed & are unremarkable except as noted in HPI and below Exam Vital Signs (past 8 hours): - 03/16/19 10:54 03/16/19 11:41 03/16/19 15:22 Temperature 97.2 F L 97.8 F Pulse Rate 81 78 86 Respiratory Rate 15 16 16 Blood Pressure 144/88 H 144/96 H 132/81 Pulse Oximetry 96 94 94 Oxygen Delivery Method Room Air Oxygen Flow Rate 0 Narrative Exam Narrative: Constitutional: NAD Neurologic: Awake and alert. Oriented x3 Right facial droop present. Right upper and lower extremity weakness present. Sensation intact. Head: NC, AT Eyes: PERRL, EOMI, Ears: external ears normal, no otorrhea Nose: external nose normal, no rhinorrhea or epistaxis Throat: MMM, oropharynx w/o exudate Neck: no masses, lymphadenopathy, or JVD Chest / Respiratory: equal chest rise, unlabored respiratory effort, no tachypnea CTAB no rrw Heart / CV: S1S2, no murmur Abdomen / GI: round, NT, ND, + BS, no organomegaly : no suprapubic tenderness, no CVA Peripheral / Vascular: warm to touch, DP and PT pulses palpable, no edema Musc: full ROM of upper and lower extremities, adequate muscle tone and bulk Skin: no ecchymosis or suspicious lesions / ulcers Objective Labs Result Diagrams: 03/16/19 07:11 03/16/19 07:11 Labs: Laboratory Results - last 24 hr 03/16/19 03/16/19 03/16/19 07:11 07:11 07:11 WBC 7.1 RBC 5.49 Hgb 16.5 Hct 47.3 MCV 86.1 MCH 30.0 MCHC 34.9 RDW 13.3 Plt Count 190 Neut % (Auto) 64.9 Lymph % (Auto) 26.1 [place] % (Auto) 7.1 Eos % (Auto) 1.1 L Baso % (Auto) 0.8 Neut # (Auto) 4600 Lymph # (Auto) 1900 [place] # (Auto) 500 Eos # (Auto) 100 Baso # (Auto) 100 PT 12.8 H INR 1.1 APTT 32 Sodium 141 Potassium 3.7 Chloride 107 Carbon Dioxide 23 BUN 14 Creatinine 0.90 Estimated GFR > 60.0 BUN/Creatinine Ratio 15.6 Glucose 309 H Hemoglobin A1c Calcium 9.2 Total Bilirubin 1.2 AST 23 ALT 26 Alkaline Phosphatase 82 Troponin I 0.020 Total Protein 7.5 Albumin 4.2 Globulin 3.3 Albumin/Globulin Ratio 1.3 Triglycerides Cholesterol LDL Cholesterol, Calc HDL Cholesterol Urine Opiates Screen Ur Oxycodone Screen Urine Methadone Screen Ur Barbiturates Screen U Tricyclic Antidepress Ur Phencyclidine Scrn Ur Amphetamines Screen U Methamphetamines Scrn Ur MDMA Scrn (Ecstasy) U Benzodiazepines Scrn Urine Cocaine Screen U Marijuana (THC) Screen 03/16/19 03/16/19 03/16/19 07:11 07:11 16:30 WBC RBC Hgb Hct MCV MCH MCHC RDW Plt Count Neut % (Auto) Lymph % (Auto) [place] % (Auto) Eos % (Auto) Baso % (Auto) Neut # (Auto) Lymph # (Auto) [place] # (Auto) Eos # (Auto) Baso # (Auto) PT INR APTT Sodium Potassium Chloride Carbon Dioxide BUN Creatinine Estimated GFR BUN/Creatinine Ratio Glucose Hemoglobin A1c 11.0 H Calcium Total Bilirubin AST ALT Alkaline Phosphatase Troponin I Total Protein Albumin Globulin Albumin/Globulin Ratio Triglycerides 170 H Cholesterol 197 LDL Cholesterol, Calc 125 H HDL Cholesterol 38 L Urine Opiates Screen Negative Ur Oxycodone Screen Negative Urine Methadone Screen Negative Ur Barbiturates Screen Negative U Tricyclic Antidepress Negative Ur Phencyclidine Scrn Negative Ur Amphetamines Screen Negative U Methamphetamines Scrn Negative Ur MDMA Scrn (Ecstasy) Negative U Benzodiazepines Scrn Negative Urine Cocaine Screen Negative U Marijuana (THC) Screen Negative Assessment & Plan Assessment & Plan narrative: Patient is admitted for right-sided weakness, rule out CVA. Onset of symptoms at least 24 hours prior to ED presentation. Last seen well on 03/14/19. Presented to the ED on 03/16. 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 Start ASA 81 mg QD and Plavix 75 mg QD, starting 03/17/19. - Lipitor 40 mg QHS, first dose tonight, goal LDH < 70. Liver enzyme WNL. Check CK. - Gentle IV hydration - Neuro checks per stroke protocol. NIHSS QShift. - Tele monitoring - Supplemental O2, keep > 94% - Passed swallow evaluation. May advance diet to heart health / carb consistent - Consult PT / OT / Speech - Consult DC Planning, re: needs to be set up w/ PCP and rehab placement Diabetes Mellitus Type II, new onset, present on admission, active - DM, suspected to be have had an undiagnosed and untreated DM. A1C 11%. - Started on Lantus 10 units QHS and SSI AC/HS - Carb consistent diet Essential hypertension, long standing and untreated, present on admission, active / uncontrolled - Trend BP - Consider starting on a low dose ACEi or BB, when stable. Hyperlipidemia, present on admission, active Chol 197 LDL 125 HDL 38 Trig 170 - Start statin, atorvastatin 40 mg QHS Right Thyroid nodule, present on admission, active - Check TSH - F/U w/ thyroid U/S Abnormal echocardiogram, active - Interatrial cardiac shunt noted on an echocardiogram without evidence of LV thrombus or presence of a PFO - Wall hypokinesis, consider further cardiac work-up and / or a stress test VTE prophylaxis: SCDs, Lovenox 40 mg SQ Full Code. No formal health directive. Designates spouse as a surrogate decision maker in the event patient is unable to make his own decisions. Home medications reviewed and reconciled accordingly. Quality VTE Deep Vein Thrombosis/Pulmonary Embolism Present on Admission: Yes
[2019-03-16] MEDS: INSULIN ASPART 100 UNIT/ML INSULN PEN SUBCUT (21:22)
[2019-03-16] MEDS: INSULIN GLARGINE 100 UNIT/ML 3ML PEN 10 UNIT SUBCUT (21:23)
[2019-03-16] MEDS: ATORVASTATIN 20 MG TABLET 40 MG PO (22:24)
[2019-03-16] MEDS: CLOPIDOGREL 75 MG TABLET PO (22:24)
--- NOTE | 2019-03-16 23:08 | PC.NURSE ---
3p-11p Report received, care assumed. A&Ox3. Right-sided weakness. NIH score of 6, compared to score of 4 on previous shift. I believe his symptoms have not worsened, rather, that his slurred speech if very mild and wasn't scored by previous shift. 2230: Pt reports improved sensation and strength to RUE. 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
[2019-03-17] VITALS (8 sets, daily range): BP systolic 131–148; BP diastolic 74–94; PULSE 77–84; RESP 16–18; TEMP 36.1–36.9; O2SAT 92–99
--- NOTE | 2019-03-17 05:56 | DI.US.S_ITS ---
PROCEDURE: US THYROID INDICATIONS: THYROID NODULE NOTED ON CTA NECK TECHNIQUE: Real-time scanning was performed of the thyroid gland, with image documentation. COMPARISON: None. FINDINGS: Right: Thyroid lobe measures 4.8 x 2.0 x 1.5 cm, and is slightly heterogeneous in echotexture. Left: Thyroid lobe measures 5.1 x 2.1 x 2.0 cm, and contains a dominant nodule. Isthmus: 5 mm thick. Nodule number: 1 Location: Left lower pole Size: 2.3 x 1.7 x 2.1 cm. Composition: Predominantly solid Echogenicity: Hypoechoic Shape: wider than tall. Margins: Smooth Echogenic foci: Heterogeneous, punctate and linear Total points: 7 ACR TI-RADS category: 5, highly suspicious IMPRESSION: 2.3 cm left lower pole thyroid nodule which is highly suspicious. Fine-needle aspiration is recommended. ACR TI-RADS definitions and recommendations: TI-RADS 1 (benign): 0 points. FNA not needed. TI-RADS 2 (not suspicious): 2 points. FNA not needed. TI-RADS 3 (mildly suspicious): 3 points. * FNA if 2.5 cm or larger, follow up if 1.5 cm or larger (at 1, 3, and 5 years). TI-RADS 4 (moderately suspicious): 4-6 points. * FNA if 1.5 cm or larger, follow up if 1 cm or larger (at 1, 2, 3, and 5 years). TI-RADS 5 (highly suspicious): 7 points or more. * FNA if 1 cm or larger, follow up if 0.5 cm or larger (every year for 5 years). Dictated by: Mame Contreras M.D. on 03/17/2019 at 16:20 Approved by: Mame Contreras M.D. on 03/17/2019 at 16:35
[2019-03-17 06:02] LABS: Creatine Kinase 131 U/L (55-170)
[2019-03-17] MEDS: ASPIRIN EC 81 MG TABLET PO (08:13)
[2019-03-17] MEDS: ENOXAPARIN 40 MG/0.4 ML SYRINGE SUBCUT (08:13)
[2019-03-17] MEDS: CLOPIDOGREL 75 MG TABLET PO (08:13)
[2019-03-17] MEDS: INSULIN ASPART 100 UNIT/ML INSULN PEN SUBCUT ×4 (08:14→21:25)
--- NOTE | 2019-03-17 09:08 | PC.NURSE ---
Pt alert, oriented denies pain, nausea and shortness of breath, speech is low and slightly slurred.Right upper and lower extremities weak. NIH 7. Pt up to chair with one person assist with belt and walker. Patient able to feed himself with min set up assist, no swallowing difficulties.
[2019-03-17 09:54] LABS: Magnesium 1.6 mg/dL (1.6-2.3)
--- NOTE | 2019-03-17 09:54 | PT.IPTN ---
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 (03/16/19) Physical Therapy Treatment Note M2 PT-IP Current Condition Start: 03/16/19 12:46 Freq: NEEDED Status: Active Protocol: Document 03/16/19 12:20 IJS (Rec: 03/16/19 13:09 IJS [id number]) Physical Therapy Current Condition Current Condition Evaluation Date 03/16/19 Treatment Diagnosis R/O CVA right hemiparesis Onset Date 03/15/19 Weight Bearing Status Weight Bearing Status Weight Bear as Tolerated M3 PT-IP Subjective Start: 03/16/19 12:46 Freq: NEEDED Status: Active Protocol: Document 03/17/19 09:52 LJ (Rec: 03/17/19 09:54 LJ [id number]) Subjective Physical Therapy Visit Type Type Treatment Note Notes Pt just returned to bed after OT session. He has had several visitors this morning and just arrived. Hold for a while.Revisit before lunch. M4 PT-IP Mobility and Gait Start: 03/16/19 12:46 Freq: NEEDED Status: Active Protocol: Document 03/16/19 12:20 IJS (Rec: 03/16/19 13:09 IJS [id number]) PT-Bed Mobility Assessment Rolling Level of Assist Moderate Assistance 1 Person Assistance Supine to Sit Supine to Sit Moderate Assistance Sit to Supine Sit to Supine Minimal Assistance Scooting Scooting to Edge of Bed Contact Guard Assistance Scooting Up and Down in Bed Standby Assistance PT-Transfer Assessment Sit to and From Stand Sit to and from Stand Minimal Assistance Equipment Transfer Assistive Device Bed Rail Gait Belt Front Wheeled Walker Orthotic/Prosthetic Devices or Brace: No Transfers Transfer Destination Bed Chair Toilet Transfer Technique Stand Step Pivot Transfer Ability Level of Assist Minimal Assistance 1 Person Assistance Gait Assessment Gait Gait Assistance Required: Minimum Assistance 1 Person Assist Distance (Feet) 20 Able to Maintain Weight Bearing Status Yes During Gait Assistive Devices Assistive Device Gait Belt Front Wheeled Walker Orthotic/Prosthetic Devices or Brace: No Gait Deviations General Gait Pattern Ataxic Decreased Stride Length Factors Limiting Gait Function Factors Limiting Gait Function Decreased Strength Incoordination Comments Gait Comments Verbal cues for keeping right hand on walker and use of grab bar in the bathroom. Patient confident he won't fall but right leg is unsteady. PT-Balance Assessment Sitting Balance and Reactions Static Sitting Balance Ability Good Dynamic Sitting Balance Ability Fair Standing Balance and Reactions Static Standing Balance Ability Good Dynamic Standing Balance Ability Fair Device Used FWW Comments Other Balance Tests/Deviations/Treatment Able to march in place and : shift weight at bedside with walker CGA. M5 PT-IP Objective Assessments Start: 03/16/19 12:46 Freq: NEEDED Status: Active Protocol: Document 03/16/19 12:20 IJS (Rec: 03/16/19 13:09 [facility] [id number]) Orientation Orientation/Cognition Level of Alertness Alert Orientation Name Age Birthday Month Date Year Day of Week Place Situation Safety Awareness Understands Safety Issues Memory Description No Deficits Noted Comments Tends to be a little impulsive , cues to slow down. Gross Range of Motion Upper Extremity ROM Assessment Within Functional Limits Lower Extremity ROM Assessment Right Impaired Impairments Decreased dorsi flexion Strength Upper Extremity Strength Assessment Right Impaired Shoulder 3-/5 Wrist 3-/5 Hand 3/5 Lower Extremity Strength Assessment Right Impaired Knee 3/5 Ankle 2/5 Coordination Assessment Gross Coordination Gross Coordination Impaired Assessment Finger to Nose Test Minimal Impairment Pronation/Supination Test Minimal Impairment Heel on Ruiz Test Minimal Impairment Coordination Comments Slow moving right UE/LE, slight upgoing toe on the right to Babinski Sensation Assessment Sensation Gross Sensation WNL Muscle Tone Muscle Tone WNL No Muscle Tone Location Right Lower Extremity Type of Tone Hypotonicity Manifistation of Tone Ataxia Right Upper Extremity Type of Tone Hypotonicity Manifistation of Tone Ataxia M6 PT-IP Treatment Start: 03/16/19 12:46 Freq: NEEDED Status: Active Protocol: Document 03/16/19 12:20 IJS (Rec: 03/16/19 13:09 [facility] [id number]) Physical Therapy Treatment Exercises Exercises Ankle Pumps Quad Sets Seated Knee Flexion/Extension Equipment Issued Equipment Type and Company FWW use M7 PT-IP Assessment and Plan Start: 03/16/19 12:46 Freq: NEEDED Status: Active Protocol: Document 03/16/19 12:20 IJS (Rec: 03/16/19 13:09 S [id number]) PT Summary Assessment and Plan Potential Rehabilitation Potential Good Status of Condition at Evaluation Evolving Summary Impairments Strength Balance Coordination Tone Gait Activity Tolerance Assessment Summary Day of admit with obvious signs of a CVA with right hemiparesis. Is a good candidate for inpateint rehab. Close guarding with gait but right knee did not buckle with use of walker. Cues for safety, hand placement and to slow down. Goals Bed Mobility Goal Standby Assistance Transfer Goal Standby Assistance Gait Goal Contact Guard Assistance Gait Distance 200 Days to Meet Goals 3 Frequency of Treatment Frequency Of Treatment Twice a Day Treatment Plan Physical Therapy Treatment Plan Bed Mobility Training Transfer Training Gait Training Therapeutic Exercise Balance Retraining Discharge Planning Neuromuscular Re-ed Coordination Retraining Recommendations To Nursing Amount of Assist Needed 1 Person Assist Discharge Recommendations PT Discharge Recommendations Acute Rehab Equipment Needed for Home Before May want to trial a hemiwalker Discharge next visit.
[2019-03-17 09:55] LABS: BUN Creatinine Ratio 21.4 (6-22); Blood Urea Nitrogen 15 mg/dL (9-20); Calcium 8.7 mg/dL (8.4-10.2); Carbon Dioxide 20 mmol/L (22-32); Chloride 111 mmol/L (98-107); Estimated Glomerular Filt Rate > 60.0 mL/min (>60); Glucose 278 mg/dL (80-110); Sodium 141 mmol/L (137-145)
[2019-03-17 09:59] LABS: HEMOLYSIS 61 (0-50); Potassium 4.3 mmol/L (3.4-5.1)
[2019-03-17 10:26] LABS: Thyroid Stimulating Hormone 1.86 uIU/mL (0.47-4.68)
--- NOTE | 2019-03-17 10:30 | ST.IPTN ---
Care Team Visit Care Team Role Provider Type Eva Mckeon DO Emergency Provider Physician Address: [address] [place] [address], [id number] Kelly Angela WillDO Admit Provider Physician Attending Provider Address: [address] [place] [address], [id number] ACCOUNT INFORMATION CLERK Treatment Note ACCOUNT INFORMATION CLERK Treatment Note Start: 03/16/19 11:24 Freq: Status: Active Protocol: Document 03/17/19 16:21 TLC (Rec: 03/17/19 16:30 TLC [id number]) Speech Pathology Treatment Note Session Time Visit Start Time 10:00 Visit Stop Time 10:25 Total Visit Minutes 25 Visit Information Visit Number 2 Setting Treatment Setting Outpatient Care Next Note Type Next Note Type Treatment Note General Information General Information Patient here for CVA. Was seen by ACCOUNT INFORMATION CLERK yesterday for swallow evaluation and place on thin liquids, regular texture diet. Mild dysarthria was noted. Subjective Others Present Family Observations/Patient Presentation Tre was awake and alert lying in bed. He stated he was tired from OT, but agreed to a cognitive screen. Noted to be coughing when brushing his teeth while working with OT. Objective Treatment Activities Completed Olvin Cognitive Assessment (MoCA). Patient scored 27/30 possible points indicating normal cognitive function, though this may be slightly lower than his baseline. He lost 1 point for generative naming (4 words that begin with /s/ in 1 minute, Normal >11 words). He lost 2 points for delayed recall, but was able to name the words when given category cues. Education was provided given results of assessment and discussed with his . Patient denies any confusion or change in memory, but states everything is slower. This includes his speech which is 100% intelligible, but slow and seems effortful at time. He denies any word finding difficulty. No PO trials given, but education provided re: safe swallowing precautions. Assessment Patient Response to Treatment Excellent Rehab Potential Excellent Impairments Identified Dysarthria Dysphagia Progress Towards Goals Good Progress Assessment of Overall Progress Improving Assessment of Improvement With min verbal cues, Tre will demonstrate adequate use of tongue sweep (right) technique to eliminate pocketing and other swallowing precautions (slow rate, small bites/sips) to increase swallow safety during a meal. Plan Provided Patient/Caregiver Instruction Questions/Concerns Therapy Recommendations Continue with Current Program
--- NOTE | 2019-03-17 12:25 | PT.IPTN ---
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 (03/16/19) Physical Therapy Treatment Note M2 PT-IP Current Condition Start: 03/16/19 12:46 Freq: NEEDED Status: Active Protocol: Document 03/17/19 11:40 IJS (Rec: 03/17/19 12:25 IJS [id number]) Physical Therapy Current Condition Current Condition Evaluation Date 03/16/19 Weight Bearing Status Weight Bearing Status Full Weight Bearing M3 PT-IP Subjective Start: 03/16/19 12:46 Freq: NEEDED Status: Active Protocol: Document 03/17/19 11:40 IJS (Rec: 03/17/19 12:25 IJS [id number]) Subjective Physical Therapy Visit Type Type Treatment Note Visit Start Time 11:40 Visit Stop Time 12:05 Total Visit Minutes 25 Number of SPECIAL EVENTS MANAGER Visits 0 Physical Therapy Visit Comments Patient Comments Thinks his arm is a little better today. Agrees he was fatigued after OT this morning . Agrees to participate in PT now. Patient Goals Get better Therapy Pain Assessment Pain Present Pain Present Denied Pain M4 PT-IP Mobility and Gait Start: 03/16/19 12:46 Freq: NEEDED Status: Active Protocol: Document 03/17/19 11:40 IJS (Rec: 03/17/19 12:25 IJS [id number]) PT-Transfer Assessment Sit to and From Stand Sit to and from Stand Contact Guard Assistance Equipment Transfer Assistive Device Gait Belt Front Wheeled Walker Orthotic/Prosthetic Devices or Brace: No Transfers Transfer Destination Chair Transfer Technique Stand Step Pivot Transfer Ability Level of Assist Contact Guard Assistance Minimal Assistance Comments Mobility Comments Was up in chair when PT arrived. Cues for right hand and foot placement stand/sit. Gait Assessment Gait Gait Assistance Required: Minimum Assistance Distance (Feet) 100 Able to Maintain Weight Bearing Status Yes During Gait Assistive Devices Assistive Device Gait Belt Front Wheeled Walker Orthotic/Prosthetic Devices or Brace: No Factors Limiting Gait Function Factors Limiting Gait Function Decreased Strength Incoordination Comments Gait Comments Step to gait with focus on clearing his right toes with each step. May benefit from AFO trial. Able to hold onto walker with right hand but admits he is using his left side a lot more. Gait training in room then seated rest then out in hallway. Right leg seemed more stable with gait today but still wanting to buckle. Stair Climbing Assessment Comments Stair Climbing Comments Have not trialed stairs yet. PT-Balance Assessment Sitting Balance and Reactions Static Sitting Balance Ability Good Dynamic Sitting Balance Ability Fair Standing Balance and Reactions Static Standing Balance Ability Good Dynamic Standing Balance Ability Fair Device Used FWW M5 PT-IP Objective Assessments Start: 03/16/19 12:46 Freq: NEEDED Status: Active Protocol: Document 03/16/19 12:20 IJS (Rec: 03/16/19 13:09 IJS [id number]) Orientation Orientation/Cognition Level of Alertness Alert Orientation Name Age Birthday Month Date Year Day of Week Place Situation Safety Awareness Understands Safety Issues Memory Description No Deficits Noted Comments Tends to be a little impulsive , cues to slow down. Gross Range of Motion Upper Extremity ROM Assessment Within Functional Limits Lower Extremity ROM Assessment Right Impaired Impairments Decreased dorsi flexion Strength Upper Extremity Strength Assessment Right Impaired Shoulder 3-/5 Wrist 3-/5 Hand 3/5 Lower Extremity Strength Assessment Right Impaired Knee 3/5 Ankle 2/5 Coordination Assessment Gross Coordination Gross Coordination Impaired Assessment Finger to Nose Test Minimal Impairment Pronation/Supination Test Minimal Impairment Heel on Ruiz Test Minimal Impairment Coordination Comments Slow moving right UE/LE, slight upgoing toe on the right to Babinski Sensation Assessment Sensation Gross Sensation WNL Muscle Tone Muscle Tone WNL No Muscle Tone Location Right Lower Extremity Type of Tone Hypotonicity Manifistation of Tone Ataxia Right Upper Extremity Type of Tone Hypotonicity Manifistation of Tone Ataxia M6 PT-IP Treatment Start: 03/16/19 12:46 Freq: NEEDED Status: Active Protocol: Document 03/17/19 11:40 IJS (Rec: 03/17/19 12:25 IJS [id number]) Physical Therapy Treatment Exercises Exercises Ankle Pumps Heel Slides Seated Knee Flexion/Extension Shoulder Flexion Elbow Flexion/Extension Other Treatments Other Treatment Performed Seated hip flexion, unsupported sitting at edge of chair for AA right hand webed into left for shoulder flexion, trunk rotation and diagonal patterns. Stand high marching holding walker. M7 PT-IP Assessment and Plan Start: 03/16/19 12:46 Freq: NEEDED Status: Active Protocol: Document 03/17/19 11:40 IJS (Rec: 03/17/19 12:25 IJS [id number]) PT Summary Assessment and Plan Potential Rehabilitation Potential Good Status of Condition at Evaluation Evolving Summary Impairments Strength Balance Coordination Tone Gait Activity Tolerance Progress Towards Goals Progressing Toward Goals Frequency of Treatment Frequency Of Treatment Twice a Day Treatment Plan Physical Therapy Treatment Plan Bed Mobility Training Transfer Training Gait Training Therapeutic Exercise Balance Retraining Neuromuscular Re-ed Coordination Retraining Recommendations To Nursing Amount of Assist Needed 1 Person Assist Discharge Recommendations PT Discharge Recommendations SNF Rehab Acute Rehab Other Discharge Recommendations Pending exercise tolerance and progression acute rehab., vs SNF rehab. Equipment Needed for Home Before Will likely need walker or Discharge yo walker.
--- NOTE | 2019-03-17 15:36 | PT.IPTN ---
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 (03/16/19) Physical Therapy Treatment Note M2 PT-IP Current Condition Start: 03/16/19 12:46 Freq: NEEDED Status: Active Protocol: Document 03/17/19 11:40 IJS (Rec: 03/17/19 12:25 IJS [id number]) Physical Therapy Current Condition Current Condition Evaluation Date 03/16/19 Weight Bearing Status Weight Bearing Status Full Weight Bearing M3 PT-IP Subjective Start: 03/16/19 12:46 Freq: NEEDED Status: Active Protocol: Document 03/17/19 15:28 RS (Rec: 03/17/19 15:36 RS [id number]) Subjective Physical Therapy Visit Type Type Treatment Note Visit Start Time 13:00 Visit Stop Time 13:28 Total Visit Minutes 28 Physical Therapy Visit Comments Patient Comments Pt feels like he's getting better after getting some sleep. Therapy Pain Assessment Pain When Pain Assessed At Rest Pain Present Pain Present Denied Pain M4 PT-IP Mobility and Gait Start: 03/16/19 12:46 Freq: NEEDED Status: Active Protocol: Document 03/17/19 15:28 RS (Rec: 03/17/19 15:36 RS [id number]) PT-Transfer Assessment Sit to and From Stand Sit to and from Stand Contact Guard Assistance Minimal Assistance Equipment Transfer Assistive Device Gait Belt Front Wheeled Walker Transfers Transfer Destination Chair Bedside Commode Transfer Technique walked Transfer Ability Level of Assist Minimal Assistance Gait Assessment Gait Gait Assistance Required: Minimum Assistance Assistive Devices Assistive Device Gait Belt Front Wheeled Walker Comments Gait Comments Used an acewrap to facilitate better R ankle DF during gait. Pt able to take a full length R step with good foot clearance and no abnormal supination. Pt also maintained good knee control in R SLS. Pt did tend to take a shorter L step. Overall stepping quality improved with additional support from OT at R elbow to improve alignment for WB through RUE. Pt also walked from chair to shower without any socks or gwen wrap with CGA, stepping pattern nearly identical to hallway walking just moments before except with a little too much supination. Foot/ankle never rolled though. Pt even able to step over shower stall lip without issue. M5 PT-IP Objective Assessments Start: 03/16/19 12:46 Freq: NEEDED Status: Active Protocol: Document 03/16/19 12:20 IJS (Rec: 03/16/19 13:09 IJ [id number]) Orientation Orientation/Cognition Level of Alertness Alert Orientation Name Age Birthday Month Date Year Day of Week Place Situation Safety Awareness Understands Safety Issues Memory Description No Deficits Noted Comments Tends to be a little impulsive , cues to slow down. Gross Range of Motion Upper Extremity ROM Assessment Within Functional Limits Lower Extremity ROM Assessment Right Impaired Impairments Decreased dorsi flexion Strength Upper Extremity Strength Assessment Right Impaired Shoulder 3-/5 Wrist 3-/5 Hand 3/5 Lower Extremity Strength Assessment Right Impaired Knee 3/5 Ankle 2/5 Coordination Assessment Gross Coordination Gross Coordination Impaired Assessment Finger to Nose Test Minimal Impairment Pronation/Supination Test Minimal Impairment Heel on Ruiz Test Minimal Impairment Coordination Comments Slow moving right UE/LE, slight upgoing toe on the right to Babinski Sensation Assessment Sensation Gross Sensation WNL Muscle Tone Muscle Tone WNL No Muscle Tone Location Right Lower Extremity Type of Tone Hypotonicity Manifistation of Tone Ataxia Right Upper Extremity Type of Tone Hypotonicity Manifistation of Tone Ataxia M6 PT-IP Treatment Start: 03/16/19 12:46 Freq: NEEDED Status: Active Protocol: Document 03/17/19 15:28 RS (Rec: 03/17/19 15:36 [id number]) Physical Therapy Treatment Other Treatments Other Treatment Performed Pt instructed to perform heel raises and toe raises or toe taps when sitting up in chair and ankle pumps when lying in bed. M7 PT-IP Assessment and Plan Start: 03/16/19 12:46 Freq: NEEDED Status: Active Protocol: Document 03/17/19 15:28 RS (Rec: 03/17/19 15:36 [id number]) PT Summary Assessment and Plan Potential Rehabilitation Potential Good Status of Condition at Evaluation Evolving Summary Progress Towards Goals Progressing Toward Goals Assessment Summary Pt's gait seems to be improving with each session. While pt's gait did look better braced it is too early to actually brace the patient as he's making good gains relatively quickly. Pt's activity tolerance is also much improved even since this morning. Definitely recommend the patient transition to inpatient rehab once medically ready. Frequency of Treatment Frequency Of Treatment Twice a Day Treatment Plan Other Recommendations and Next Treatment RLE strength/motor control, Focus full length reciprocal steps, balance Recommendations To Nursing Amount of Assist Needed 1 Person Assist Discharge Recommendations PT Discharge Recommendations Acute Rehab Other Discharge Recommendations activity tolerance improving, could tolerate 3+ hours/day
--- NOTE | 2019-03-17 16:24 | OT.IP.EVAL ---
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 (03/16/19) Past Medical History (Last Updated 03/16/19 @ 20:12 by ENRRIQUE Jorge) Essential hypertension (Acute) Surgical History (Last Reviewed 03/16/19 @ 20:12 by ENRRIQUE Jorge) History of meniscectomy of left knee (Acute) History of repair of hiatal hernia (Acute) Occupational Therapy Inpatient Evaluation/Re-Eval M1 PT/OT-IP Prior Functional Status Start: 03/17/19 15:49 Freq: NEEDED Status: Active Protocol: Document 03/17/19 09:00 [facility] (Rec: 03/17/19 16:23 [facility] [id number]) Medical Review Prior Functional Status Medical History Reviewed Yes Diet/Fluid Consistency Regular Thin Liquids Communication Yoruba Mobility and Gait Independent Activities of Daily Living and IADL's Independent with ADL's, IADL's , and driving. Prior Functional Level (Other details) Just returned from a Cruise vacation. Per pt one month ago riding his bike 6 miles. Social History Household Members spouse Living Arrangements House Number of Floors (Floors) One Floor Home Environment Standard Height Toilet Walk in Shower Employment Status Retired M2 OT-IP Current Condition Start: 03/17/19 15:49 Freq: Status: Active Protocol: Document 03/17/19 09:00 [facility] (Rec: 03/17/19 16:23 [facility] [id number]) Occupational Therapy Current Condition Current Condition Evaluation Date 03/17/19 Treatment Diagnosis Acute left pontine ischemia Diagnosis Onset Date 03/16/19 Weight Bearing Status Weight Bearing Status Weight Bear as Tolerated M3 OT- IP Subjective and Pain Start: 03/17/19 15:49 Freq: Status: Active Protocol: Document 03/17/19 09:00 [facility] (Rec: 03/17/19 16:23 [facility] [id number]) OT- Subjective Occupational Therapy Visit Type Type Initial Evaluation Visit Start Time 09:00 Visit Stop Time 09:50 Total Visit Minutes 50 Occupational Therapy Visit Comments Patient Comments Pt agreeable to get up to do grooming needs. Patient/Caregiver Goals Pt motivated to get better go to acute rehab. OT Pain Assessment Pain When Pain Assessed At Rest Pain Present Pain Present Denied Pain M4 OT- IP ADL's Start: 03/17/19 15:49 Freq: Status: Active Protocol: Document 03/17/19 09:00 [facility] (Rec: 03/17/19 16:23 [facility] [id number]) OT [id number] General Evaluation Self-Feeding Ability Total Assistance-RUE, set-up LUE Comments OT Self-Feeding Comments Per pt having to use left hand to feed himself at this time due to weakness of RUE. Requested large handled utensils if while pt states was easier to eat with left hand. Pt not able to use right hand to eat at this time. OT ADL-Grooming General Evaluation Grooming Ability Maximum Assistance-RUE, set-up LUE Areas Needing Assistance Retrieving/Set-up of Grooming Items Comments OT Grooming Comments Pt needing MAX A to help support RUE and for today able to use RUE on the counter to assist for balance and to hold toothpaste tube while mainly use of left hand to complete grooming needs. Pt us right hand dominant. OT ADL-Oral Care General Eval Oral Care Ability Deependent-RUE,Independent LUE Comments Oral Care Comments Pt able to independently use LUE for needs at this time. OT ADL-Dressing General Eval Lower Body Dressing Ability Maximum Assistance Comments OT Dressing Comments Dependent to tuan non slip socks. OT ADL-Toileting Comments OT Toileting Comments Not not needing to go. OT ADL-Bathing Comments OT Bathing Comments Pt too tired to attempt. M5 OT- IP IADL's Start: 03/17/19 15:49 Freq: Status: Active Protocol: Document 03/17/19 09:00 [facility] (Rec: 03/17/19 16:23 [facility] [id number]) OT-Instrumental Activities of Daily Living Home Safety Awareness Home Safety Comments To continue to assist for independence for IADl needs, at this time pt's will have to assist due to physically unable to do IADL needs at this time due to decreased functional use of RUE, decreased dynamic sitting and standing balance. M6 OT- IP Functional Cognition Start: 03/17/19 15:49 Freq: Status: Active Protocol: Document 03/17/19 09:00 [facility] (Rec: 03/17/19 16:23 [facility] [id number]) Cognitive Factors Limiting Selfcare Function Cognitive Ability Level of Alertness Alert Patient Orientation Name Place Situation Attention Span Ability Capable of Focused Attention Capable of Sustained Attention Ability to Follow Commands Able to Follow One Step Commands Memory Description Short Term Impaired Safety Awareness Underestimates Need for Assistance Problem Solving Ability Needs Assist to Identify Solutions Cognitive Comments Cognitive Assessment Comments Pt able to follow simple commands, vc for safety awareness and to incorporate use of RUE for needs. OT- Vision and Hearing OT- Hearing Assessment OT- Hearing Assessment WFL OT- Vision Assessment Visual Acuity WFL Glasses For Reading Occular Pursuits WFL Visual Fischer WFL M7 OT- IP Mobility and Balance Start: 03/17/19 15:49 Freq: Status: Active Protocol: Document 03/17/19 09:00 [facility] (Rec: 03/17/19 16:23 [facility] [id number]) OT- Bed Mobility Assessment Rolling Type of Rolling Log Rolling Supine to Sit Supine to Sit Assist Moderate Assistance 1 Person Assistance Sit to Supine Sit to Supine Assist Moderate Assistance 1 Person Assistance Scooting Scooting to Edge of Bed Moderate Assistance 1 Person Assistance Scooting Up and Down in Bed Moderate Assistance 1 Person Assistance OT-Transfer Assessment Sit to and From Stand Sit to and from Stand Moderate Assistance 1 Person Assistance Transfers Transfer Ability Moderate Assistance 1 Person Assistance Technique Transfer Destination Bed Chair Devices Transfer Assistive Devices Gait Belt Front Wheeled Walker Comments Mobility Comments Pt needing assist to get up from sidelying as not able to push up with right elbow/UE and needing to pull on therapist to sit up. On the way in also needing assist to help get RLE back into the bed . Pt MAXA to help incorporate RUE to push up from the bed to stand and help guide to place on FWW handle, and physical assist to keep it in place and support at elbow to get weight through right UE. OT- Balance Assessment Sitting Balance and Reactions Static Sitting Balance Ability Good Dynamic Sitting Balance Ability Fair Standing Balance and Reactions Static Standing Balance Ability Poor Dynamic Standing Balance Ability Poor M8 OT- IP Objective Assessments Start: 03/17/19 15:49 Freq: Status: Active Protocol: Document 03/17/19 09:00 [facility] (Rec: 03/17/19 16:23 [facility] [id number]) OT Gross Range of Motion Upper Extremity Range of Motion Assessment Right Impaired ROM Impairments Elbow WFL, shoulder unable to raise arm up and tends to compensate by hiking up his right shoulder. Pt able to open and close his hand loosely OT Strength Upper Extremity Strength Assessment Right Impaired Shoulder 3-/5 Elbow 3/5 Forearm 3-/5 Wrist 3-/5 Hand 3-/5 Hand Contract Clerk Automobile Strength Hand Dominance Right Comments Strength Comments LUE WFL OT-Muscle Tone Assessment Muscle Tone WNL No Muscle Tone Location Right Upper Extremity Type of Tone Hypotonicity Severity of Tone Moderate Manifestation of Tone Ataxia OT Sensation Assessment Comments Summary Comments Intact for light touch, proprioception and kinesthesia Edema Edema Present Edema Comments MIn/MOD swelling of right hand. M9 OT- IP Assessment and Plan Start: 03/17/19 15:49 Freq: Status: Active Protocol: Document 03/17/19 09:00 [facility] (Rec: 03/17/19 16:23 [facility] [id number]) OT Summary Assessment and Plan Potential Rehabilitation Potential Excellent Analytic Complexity at Evaluation Low Summary OT Impairments Range of Motion Strength Balance Coordination Tone Functional Cognition Functional Mobility Self-Feeding Grooming Dressing Toileting Bathing Toilet Transfers Shower Transfers Progress Towards Goals Slow Progress due to Medical Issues Slow Progress due to Activity Tolerance Assessment Summary Pt Complexity and main barrier are decreased functional use of RUE and RUE, decreased static and dynamic balance, decreased activity tolerance, strength, endurance, and far from baseline of being completely independent prior. Pt would benefit from either skilled rehab versus acute rehab pending activity tolerance and progress. Goals Self-Feeding Goal Minimal Assistance Grooming Goal Moderate Assistance Dressing Goal Moderate Assistance Toileting Goal Moderate Assistance Bathing Goal Moderate Assistance Toilet Transfer Goal Contact Guard Assistance Shower Transfer Goal Minimal Assistance Patient/Caregiver Education Goal Caregiver Independent Assisting Patient OT-Other Goals All goals above with incorporating/using RUE. Days to Meet Goals 10 Frequency of Treatment Frequency Of Treatment Twice a Day Treatment Plan OT Treatment Plan ADL Training Functional Cognition Training Functional Mobility Neuromuscular Re-education Patient/Family Education Discharge Planning Other Treatment Recommendations and Next Shower, exercises for RUE Treatment Focus Discharge Recommendations OT Discharge Recommendations SNF Rehab Acute Rehab Home Equipment Needs Pending progress, may need BSC , FWW, shower chair
--- NOTE | 2019-03-17 16:39 | OT.IP.TRT ---
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 (03/16/19) Occupational Therapy Treatment Note M2 OT-IP Current Condition Start: 03/17/19 15:49 Freq: Status: Active Protocol: Document 03/17/19 09:00 [facility] (Rec: 03/17/19 16:23 [facility] [email or web address]) Occupational Therapy Current Condition Current Condition Evaluation Date 03/17/19 Treatment Diagnosis Acute left pontine ischemia Diagnosis Onset Date 03/16/19 Weight Bearing Status Weight Bearing Status Weight Bear as Tolerated M3 OT- IP Subjective and Pain Start: 03/17/19 15:49 Freq: Status: Active Protocol: Document 03/17/19 16:30 [facility] (Rec: 03/17/19 16:39 [facility] [email or web address]) OT- Subjective Occupational Therapy Visit Type Type Treatment Note Visit Start Time 14:50 Visit Stop Time 15:40 Total Visit Minutes 50 Occupational Therapy Visit Comments Patient Comments Pt wanting to shower. OT Pain Assessment Pain When Pain Assessed At Rest Pain Present Pain Present Denied Pain M4 OT- IP ADL's Start: 03/17/19 15:49 Freq: Status: Active Protocol: Document 03/17/19 16:30 [facility] (Rec: 03/17/19 16:39 [facility] [email or web address]) OT ADL-Dressing General Eval Lower Body Dressing Ability Maximum Assistance Comments OT Dressing Comments Dependent to tuan/doff socks, and assist to help get right foot into his slipper, and assist to get left heel into slipper. OT ADL-Toileting Comments OT Toileting Comments Not not needing to go. OT ADL-Bathing Bathing Type Bathing Type Shower General Evaluation Bathing Ability Maximal Assistance- Areas Needing Assistance Retrieving/Setting Up Items Wash/Dry Face Wash/Dry Upper Body Wash/Dry Back Wash/Dry Perineal Area Wash/Dry Lower Extremities Devices Bathing Equipment Hand Held Shower Sprayer Shower Chair with Arms Grab Bars Comments OT Bathing Comments Pt needing MAX A to help incorporate use of right hand to shower. Pt able to use RUE to hold to grab bar while standing otherwise mainly use of left hand to shower' therapist assist to wash his back, wash/dry his BLE. Pt however able to hold HHSP with right hand while checking water temperature. M5 OT- IP IADL's Start: 03/17/19 15:49 Freq: Status: Active Protocol: Document 03/17/19 09:00 [facility] (Rec: 03/17/19 16:23 [facility] [email or web address]) OT-Instrumental Activities of Daily Living Home Safety Awareness Home Safety Comments To continue to assist for independence for IADl needs, at this time pt's will have to assist due to physically unable to do IADL need at this time due to decreased functional use of RUE, decreased dynamic sitting and standing balance. M6 OT- IP Functional Cognition Start: 03/17/19 15:49 Freq: Status: Active Protocol: Document 03/17/19 16:30 [facility] (Rec: 03/17/19 16:39 [facility] [email or web address]) Cognitive Factors Limiting Selfcare Function Cognitive Comments Cognitive Assessment Comments Pt able to recall conversation with doctor, remembering to have to cover IV site, but still needing cues and assist to use RUE. M7 OT- IP Mobility and Balance Start: 03/17/19 15:49 Freq: Status: Active Protocol: Document 03/17/19 16:30 [facility] (Rec: 03/17/19 16:39 [facility] [email or web address]) OT- Bed Mobility Assessment Rolling Type of Rolling Log Rolling Supine to Sit Supine to Sit Assist Moderate Assistance 1 Person Assistance Sit to Supine Sit to Supine Assist Moderate Assistance 1 Person Assistance Scooting Scooting to Edge of Bed Moderate Assistance 1 Person Assistance Scooting Up and Down in Bed Moderate Assistance 1 Person Assistance OT-Transfer Assessment Sit to and From Stand Sit to and from Stand Moderate Assistance 1 Person Assistance Transfers Transfer Ability Moderate Assistance 1 Person Assistance Technique Transfer Destination Bed Chair Shower Stall Devices Transfer Assistive Devices Gait Belt Front Wheeled Walker Comments Mobility Comments PT able to assist and gwen wrapped pt's foot to help prevent from supination. OT able to stabilize pt's RUE through elbow while walking with FWW. Noted increased stability in his trunk with less sway then in the AM. MAXA to help incorporate use of RUE and CAR for balance . OT- Balance Assessment Sitting Balance and Reactions Static Sitting Balance Ability Good Dynamic Sitting Balance Ability Fair Standing Balance and Reactions Static Standing Balance Ability Fair M8 OT- IP Objective Assessments Start: 03/17/19 15:49 Freq: Status: Active Protocol: Document 03/17/19 09:00 [facility] (Rec: 03/17/19 16:23 [facility] [id number]) OT Gross Range of Motion Upper Extremity Range of Motion Assessment Right Impaired ROM Impairments Elbow WFL, shoulder unable to raise arm up and tends to compensate by hiking up his right shoulder. Pt able to open and close his hand loosely. 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 M9 OT- IP Assessment and Plan Start: 03/17/19 15:49 Freq: Status: Active Protocol: Document 03/17/19 16:30 [facility] (Rec: 03/17/19 16:39 [facility] [id number]) OT Summary Assessment and Plan Potential Rehabilitation Potential Excellent Analytic Complexity at Evaluation Low Summary OT Impairments Range of Motion Strength Balance Coordination Tone Functional Cognition Functional Mobility Self-Feeding Grooming Dressing Toileting Bathing Toilet Transfers Shower Transfers Progress Towards Goals Progressing Toward Goals Assessment Summary Pt increased activity tolerance in PM session and noted improvement with balance for RLE and ability to help incorporate use of RUE for ADL needs. Pt would benefit from acute rehab Goals Self-Feeding Goal Minimal Assistance Grooming Goal Moderate Assistance Dressing Goal Moderate Assistance Toileting Goal Moderate Assistance Bathing Goal Moderate Assistance Toilet Transfer Goal Contact Guard Assistance Shower Transfer Goal Minimal Assistance Patient/Caregiver Education Goal Caregiver Independent Assisting Patient OT-Other Goals All goals above with incorporating/using RUE. Days to Meet Goals 10 Frequency of Treatment Frequency Of Treatment Twice a Day Treatment Plan OT Treatment Plan ADL Training Functional Cognition Training Functional Mobility Neuromuscular Re-education Patient/Family Education Discharge Planning Other Treatment Recommendations and Next exercise fo RUE Treatment Focus Discharge Recommendations OT Discharge Recommendations SNF Rehab Acute Rehab-pending progress and activity tolerance Home Equipment Needs Pending progress, may need BSC , FWW, shower chair
--- NOTE | 2019-03-17 18:50 | PM.PN.1 ---
Subjective Date Patient Seen: 03/17/19 Interval history: Tre Packer is a 58-year-old male with a past medical history significant for hypertension and hyperlipidemia who presented with right sided weakness. The patient is resting in bed comfortably. He continues to have right-sided weakness, right-sided facial droop, mild slurring of speech. He denies headache, lightheadedness or dizziness, shortness of breath, chest pain, abdominal pain, nausea, vomiting, fever, chills, dysuria, diarrhea or constipation. Discussed CVA and echocardiogram findings in detail. He is voiding and eliminating without difficulty. He is up ambulating with assistance and PT/OT. Exam Vital Signs (past 8 hours): - 03/17/19 11:37 03/17/19 15:30 Temperature 98 F 97.0 F L Pulse Rate 84 80 Respiratory Rate 16 18 Blood Pressure 143/86 H 148/90 H Pulse Oximetry 96 97 Oxygen Delivery Method Room Air Oxygen Flow Rate 0 Narrative Exam Narrative: General: Middle-aged gentleman lying in bed and in no acute distress, well-developed, well-nourished, appropriately interactive. HEENT: Normocephalic, atraumatic. External ears without defect. Pupils equal, round, and reactive to light. Anicteric sclerae, moist conjunctivae, and no lid lag. Right-sided facial droop. Neck: Supple with full range of motion. No jugular venous distension. No lymphadenopathy or thyromegaly. Cardiovascular: Regular rate and rhythm without murmurs, rubs, or gallops appreciated. Pulmonary: Clear to auscultation bilaterally without crackles, wheezes, or rhonchi. Normal respiratory effort with no use of accessory muscles. Abdomen: Soft, bowel sounds present, nontender, nondistended. No hepatosplenomegaly or masses appreciated. Extremities: No clubbing, cyanosis, or edema. Skin: Normal temperature, turgor, and texture; no rash, ulcers, or subcutaneous nodules appreciated. Neurological: Right-sided facial droop. Right-sided weakness upper extremity > lower extremity. Cerebellar function with heel to donahue not intact on right. Psychiatric: Normal mood and affect. Alert and oriented to person, place, and time. Objective Labs Result Diagrams: 03/16/19 07:11 03/17/19 05:25 Labs: Laboratory Results - last 24 hr 06/03/17/19 03/17/19 07:11 05:25 05:25 Sodium 141 Potassium 4.3 Chloride 111 H Carbon Dioxide 20 L BUN 15 Creatinine 0.70 Estimated GFR > 60.0 BUN/Creatinine Ratio 21.4 Glucose 278 H Calcium 8.7 Magnesium 1.6 Total Creatine Kinase 131 TSH 03/17/19 05:25 Sodium Potassium Chloride Carbon Dioxide BUN Creatinine Estimated GFR BUN/Creatinine Ratio Glucose Calcium Magnesium Total Creatine Kinase TSH 1.86 Assessment & Plan Assessment & Plan narrative: Tre Packer is a 58-year-old male with a past medical history significant for hypertension and hyperlipidemia who presented with right sided weakness. 1. Acute ischemic left pontine CVA, present on admission. Active. -Patient presented after having right sided weakness for 1 day with associated right facial droop and slurred speech. -Patient was not a tPA candidate. -CT brain and CTA head and neck did not demonstrate any acute intracranial or neck abnormalities, stenosis, aneurysms, or dissections. -MR stroke protocol demonstrated acute left pontine ischemia. -Received 325 mg ASA x1 dose on 03/16/19. Continue aspirin 81 mg daily and Plavix 75 mg daily as patient is high risk of VTE with intra atrial shunt and possible ischemic changes on echocardiogram. -Continue Lipitor 40 mg daily at bedtime. Goal LDH < 70. -Continued IV fluids for cerebral perfusion times 24 hours. Discontinued as patient is adequately hydrated and takin in PO well. -Continue neuro checks per stroke protocol. NIHSS QShift. -Continue monitoring closely on telemetry. -Continue supplemental oxygen to keep sats oxygen saturation > 92%. -Passed swallow evaluation and advanced diet to heart health / carb consistent. -Continue physical, occupational, and speech therapy. Patient is a good candidate for inpatient rehabilitation pending cardiac workup as below. 2. Abnormal echocardiogram, present on admission. Active. -Interatrial cardiac shunt noted on an echocardiogram without evidence of LV thrombus or presence of a PFO. Likely ASD. -Cardiac risk factors include: Hypertension, hyperlipidemia, diabetes mellitus type 2, significant family history, age, gender, possible obstructive sleep apnea. -Echocardiogram demonstrated LV normal in size with EF 50-55%, posterolateral wall, basal anterolateral wall, mid anterolateral wall and apical inferior wall hypokinesis. No LV thrombus. RV normal in size and function. Intraatrial shunt. No significant valvular pathology seen. Ascending aorta is moderately enlarged and aortic arch is mild-moderately enlarged. IVC is dilated (diameter is greater than 2.1 cm) yet it collapses greater than 50% with a sniff. This suggests a right atrial pressure of 8 mm Hg. -Nuclear medicine stress test ordered and will be performed tomorrow as there is concern for ischemic injury with wall motion abnormalities. NPO at midnight. 3. Diabetes mellitus type II, chronic but newly diagnosed, present on admission. Active. -Hemoglobin A1c 11.0%. -Started on Lantus 10 units daily at bedtime. Consider starting oral anti-hyperglycemic toward end of hospitalization. -Continue [facility] blood glucose checks and low-dose correctional scale insulin. -Continue carbohydrate/heart healthy diet. 4. Hypertension, chronic and untreated, present on admission. Active. -Allow for permissive hypertension for 24-48 hours. -Consider starting ACEi/ARB or BB, when stable. 5. Hyperlipidemia, chronic, present on admission. Active. -Fasting lipid panel demonstrated: Total cholesterol 197, triglycerides 170, LDL 125, HDL 38. -Continue to atorvastatin 40 mg daily at bedtime. 6. Incidental right thyroid nodule, present on admission. Stable. -TSH 1.86. -Ordered thyroid ultrasound, pending. Disposition: Patient likely to discharge to inpatient rehabilitation depending on further risk stratification and workup of heart disease. Quality VTE Deep Vein Thrombosis/Pulmonary Embolism Present on Admission: Yes
[2019-03-17] MEDS: ATORVASTATIN 20 MG TABLET 40 MG PO (21:25)
[2019-03-17] MEDS: INSULIN GLARGINE 100 UNIT/ML 3ML PEN 10 UNIT SUBCUT (21:27)
--- NOTE | 2019-03-17 23:35 | PC.NURSE ---
Evening note: Tre is Ox3 and situation, denies any pain. VS stable. NIH 6 for weakness/drift to right and left extremities, speech clear but slow. Answers all questions appropriately. Sat up in recliner for meal, transfers slow, some right foot drag, good use of fww. Later back into bed. Aware he is having cardiac perfusion test tomorrow & that he will be NPO after breakfast. Other than needing some assist to reposition self in bed & untangle linen from legs, denies other needs/concerns tonight, alarm active for safety & fall precautions in place.
[2019-03-18] VITALS (7 sets, daily range): BP systolic 120–147; BP diastolic 61–93; PULSE 73–90; RESP 16–20; TEMP 36.4–36.8; O2SAT 97–98
[2019-03-18] MEDS: ENOXAPARIN 40 MG/0.4 ML SYRINGE SUBCUT (07:48)
[2019-03-18] MEDS: ASPIRIN EC 81 MG TABLET PO (07:49)
[2019-03-18] MEDS: CLOPIDOGREL 75 MG TABLET PO (07:49)
[2019-03-18] MEDS: INSULIN ASPART 100 UNIT/ML INSULN PEN SUBCUT ×4 (07:50→20:45)
[2019-03-18] MEDS: SODIUM CHLORIDE 0.9% FLUSH 10 ML IV ×2 (08:06→20:45)
--- NOTE | 2019-03-18 09:41 | PC.NURSE ---
Pt alert, oriented, one min assist with walker and gait belt to chair. NIH 6, denies pain.
--- NOTE | 2019-03-18 11:47 | PT.IPTN ---
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 (03/16/19) Physical Therapy Treatment Note M2 PT-IP Current Condition Start: 03/16/19 12:46 Freq: NEEDED Status: Active Protocol: Document 03/17/19 11:40 [facility] (Rec: 03/17/19 12:25 [facility] [id number]) Physical Therapy Current Condition Current Condition Evaluation Date 03/16/19 Weight Bearing Status Weight Bearing Status Full Weight Bearing M3 PT-IP Subjective Start: 03/16/19 12:46 Freq: NEEDED Status: Active Protocol: Document 03/18/19 11:46 [facility] (Rec: 03/18/19 11:47 [facility] [id number]) Subjective Physical Therapy Visit Type Notes Scheduled to have a stress test at 12:00 and is declining any therapy because he cannot have any water. Will check on him in the p.m. M
--- NOTE | 2019-03-18 12:12 | ST.IPTN ---
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 Pt reports good tolerance of thin liquids, regular texture diet . Mild dysarthria continues. Subjective Identification Type Name ID Card Observations/Patient Presentation The pt was sitting up in chair with present. He reported tolerance of regular diet and thin liquids and some improvement of speech production. He was made NPO following breakfast for an upcoming stress test. Chief Complaint(s) Speech Rehab Expectation/Goals: Patient Goals Improve speech production to WNL Patient Knowledge/Awareness of SENIOR WINDOWS SYSTEMS ENGINEER Role Good in Treatment Objective Short Term Goals The pt will perform oral motor exercises and speech strategies (i.e., reduced rate and over-exaggeration of speech) to improve speech intelligibility and ease. Carpet Mechanic Goals The pt will communicate with 90% or greater speech intelligibility in order to communicate his wants/needs/ ideas and participate in conversations and decisions related to his medical care. Treatment Activities Initiated training of oral motor exercises, including smile-pucker and lingual extension, retraction, and lateral movements. Education and instruction RE speech intelligibility strategies and HEP speech tasks (e.g., multisyllabic words) were provided orally and in writing . Both pt/spouse verbalized understanding. The pt returned demonstration of oral motor exercises. Assessment Patient Response to Treatment Excellent Rehab Potential Excellent Impairments Identified Dysarthria Dysphagia Progress Towards Goals Good Progress Assessment of Overall Progress Improving Assessment of Improvement The pt reports good tolerance of current diet. Speech intelligibility was 100% during limited conversation today but continues to be mildly disarthric with imprecise articulation of some consonants. The pt reports feeling that his tongue is thick and slow to move. He was responsive to education and training provided today and had no questions. Reviewed with Patient Goals Home Exercise Program Patient/Caregiver Understanding Excellent Plan Therapeutic Contents Intelligibility Comment Continue dyarthria tx during hospital stay; outpatient care after dc
--- NOTE | 2019-03-18 12:24 | PM.TREADMILL ---
Cardiac Stress Test Report Referral & Results Date Patient Seen: 03/18/19 Time Patient Seen: 12:24 Requesting provider: Kelly Glover Rest ECG: Unremarkable Procedure Note: After both written and verbal informed consent the patient had an IV started by the diagnostic imaging RN, and then was hooked up to the treadmill monitoring system. The Lexiscan material, and then the Cardiolite tracer, were administered sequentially. An additional 3 min was spent monitoring the patient while supine on the gurney. The patient had a normal response to all infused materials. Impression: Normal response to infuse materials Please see perfusion imaging report and images regarding possible ischemia Please note: Actual ECG tracings can be found in the PACS system.
--- NOTE | 2019-03-18 13:29 | OT.IP.TRT ---
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 (03/16/19) Occupational Therapy Treatment Note M2 OT-IP Current Condition Start: 03/17/19 15:49 Freq: Status: Active Protocol: Document 03/17/19 09:00 [facility] (Rec: 03/17/19 16:23 [facility] [id number]) Occupational Therapy Current Condition Current Condition Evaluation Date 03/17/19 Treatment Diagnosis Acute left pontine ischemia Diagnosis Onset Date 03/16/19 Weight Bearing Status Weight Bearing Status Weight Bear as Tolerated M3 OT- IP Subjective and Pain Start: 03/17/19 15:49 Freq: Status: Active Protocol: Document 03/18/19 09:00 [facility] (Rec: 03/18/19 13:29 [facility] [id number]) OT- Subjective Occupational Therapy Visit Type Type Patient Refusal Notes Pt states wants to hold off on OT treatment this morning as to have a stress test at noon. Pt is currently NPO would rather wait to be seen in PM.
--- NOTE | 2019-03-18 14:35 | PT.IPTN ---
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 (03/16/19) Physical Therapy Treatment Note M2 PT-IP Current Condition Start: 03/16/19 12:46 Freq: NEEDED Status: Active Protocol: Document 03/17/19 11:40 IJS (Rec: 03/17/19 12:25 IJS [id number]) Physical Therapy Current Condition Current Condition Evaluation Date 03/16/19 Weight Bearing Status Weight Bearing Status Full Weight Bearing M3 PT-IP Subjective Start: 03/16/19 12:46 Freq: NEEDED Status: Active Protocol: Document 03/18/19 14:35 AB (Rec: 03/18/19 16:20 AB [id number]) Subjective Physical Therapy Visit Type Type Treatment Note Visit Start Time 14:35 Visit Stop Time 15:15 Total Visit Minutes 40 Number of DIRECTOR OF SLOT OPERATIONS Visits 0 Physical Therapy Visit Comments Patient Comments pt agreeable to do PT M4 PT-IP Mobility and Gait Start: 03/16/19 12:46 Freq: NEEDED Status: Active Protocol: Document 03/18/19 14:35 AB (Rec: 03/18/19 16:20 AB [id number]) PT-Transfer Assessment Sit to and From Stand Sit to and from Stand Moderate Assistance Maximum Assistance 1 Person Assistance Use of Upper Extremities Equipment Transfer Assistive Device Gait Belt Front Wheeled Walker Orthotic/Prosthetic Devices or Brace: No Transfers Transfer Destination Chair Transfer Technique pt ambulated using FWW Transfer Ability Level of Assist Maximum Assistance Comments Mobility Comments Found pt sitting on the toilet . pt stated that his NAC assisted him to the toilet. pt attempted sit to stand from the toilet requiring max A and max cues. required 2 attempts before able to complete. (+) LOB with increase trunk LOB to the R. pt tends to push more on L side with decrease trunk control on R. pt ambulated to the sink using FWW ~ 10 ft max A and max cues. required max cues for quad activation and needs assist to stabilize R knee. noted slight knee buckling with cues for control . pt was able to stand by the sink max A and cues while completing handwashing. pt is impulsive and requires constant cues for safety. pt completed sit <>stand x 5 reps requiring mod to max A and max cues for techniques. Pt educated on how to use RUE/ LE during sit<>stand and to increase awareness of his trunk control on the R. pt completed standing using FWWx 4 reps mod A x2 and max cues. able to complete single leg stance on RLE using FWW for support. Gait Assessment Gait Gait Assistance Required: Moderate Assistance 2 Person Assist Distance (Feet) 12 Able to Maintain Weight Bearing Status Yes During Gait Assistive Devices Assistive Device Gait Belt Front Wheeled Walker Orthotic/Prosthetic Devices or Brace: No Gait Deviations General Gait Pattern Antalgic Decreased Stride Length Decreased Feet Clearance Lateral Trunk Lean Factors Limiting Gait Function Factors Limiting Gait Function Decreased Activity Tolerance Decreased Sensation Decreased Strength Difficulty Following Directions Incoordination Comments Gait Comments demonstrated and educated pt regarding ambulation: RLE control, weight shifting and trunk control. pt completed ambulation using FWW mod A x 2 and max cues. increase dragging of RLE towards end of ambulation and instructed pt to sit down. pt stated that he is tired. M5 PT-IP Objective Assessments Start: 03/16/19 12:46 Freq: NEEDED Status: Active Protocol: Document 03/16/19 12:20 IJS (Rec: 03/16/19 13:09 IJS [id number]) Orientation Orientation/Cognition Level of Alertness Alert Orientation Name Age Birthday Month Date Year Day of Week Place Situation Safety Awareness Understands Safety Issues Memory Description No Deficits Noted Comments Tends to be a little impulsive , cues to slow down. Gross Range of Motion Upper Extremity ROM Assessment Within Functional Limits Lower Extremity ROM Assessment Right Impaired Impairments Decreased dorsi flexion Strength Upper Extremity Strength Assessment Right Impaired Shoulder 3-/5 Wrist 3-/5 Hand 3/5 Lower Extremity Strength Assessment Right Impaired Knee 3/5 Ankle 2/5 Coordination Assessment Gross Coordination Gross Coordination Impaired Assessment Finger to Nose Test Minimal Impairment Pronation/Supination Test Minimal Impairment Heel on Ruiz Test Minimal Impairment Coordination Comments Slow moving right UE/LE, slight upgoing toe on the right to Babinski Sensation Assessment Sensation Gross Sensation WNL Muscle Tone Muscle Tone WNL No Muscle Tone Location Right Lower Extremity Type of Tone Hypotonicity Manifistation of Tone Ataxia Right Upper Extremity Type of Tone Hypotonicity Manifistation of Tone Ataxia M6 PT-IP Treatment Start: 03/16/19 12:46 Freq: NEEDED Status: Active Protocol: Document 03/18/19 14:35 AB (Rec: 03/18/19 16:20 AB [id number]) Physical Therapy Treatment Exercises Exercises Ankle Pumps Quad Sets Education Education Provided Safety Other Treatments Other Treatment Performed pt encouraged to use RUE/LE during mobility and to increase awareness of R trunk. educated on doing ankle pumps and LAQs with 5 sec hold as HEP. M7 PT-IP Assessment and Plan Start: 03/16/19 12:46 Freq: NEEDED Status: Active Protocol: Document 03/18/19 14:35 AB (Rec: 03/18/19 16:20 AB [id number]) PT Summary Assessment and Plan Potential Rehabilitation Potential Good Summary Impairments Strength Balance Coordination Sensation Cognition Bed Mobility Transfers Gait Activity Tolerance Progress Towards Goals Slow Progress due to Activity Tolerance Assessment Summary pt requiring mod A x 2 for mobility. required max cues for techniques and safety. pt is motivated to improve. pt will benefit from acute rehab to improve strength and functional independence. depending on pt's progress, pt may start with SNF rehab and go to acute rehab. Goals Bed Mobility Goal Standby Assistance Transfer Goal Standby Assistance Front Wheeled Walker Gait Goal Contact Guard Assistance Front Wheel Walker Gait Distance 200 Days to Meet Goals 10 Frequency of Treatment Frequency Of Treatment Twice a Day Recommendations To Nursing Amount of Assist Needed 2 Person Assist Discharge Recommendations PT Discharge Recommendations SNF Rehab Acute Rehab Equipment Needed for Home Before FWW if pt is going home Discharge
--- NOTE | 2019-03-18 15:36 | P.PN_ITS ---
Subjective Date Patient Seen: 03/18/19 Time Patient Seen: 15:33 Interval history: Follow-up on right-sided left-sided CVA. Patient seen at bedside. He is doing well at this time. He is ambulating with physical therapy and feels like his right side is getting slightly stronger. No acute overnight events. No headache, lightheadedness, dizziness, shortness breath, chest pain, abdominal pain, nausea, vomiting, fever, chills. Patient went for stress test this morning- results pending. Exam Vital Signs (past 8 hours): - 03/18/19 08:35 03/18/19 11:59 03/18/19 15:24 Temperature 97.8 F 97.8 F Pulse Rate 81 90 Respiratory Rate 16 18 Blood Pressure 141/93 H 129/84 Pulse Oximetry 97 98 97 Oxygen Delivery Method Room Air Oxygen Flow Rate 0 Narrative Exam Narrative: General: No acute distress, sitting comfortably in bed HEENT: Normocephalic, atraumatic. Pupils equal, round, and reactive to light. Anicteric sclerae, moist conjunctivae. Right-sided facial droop, improving. Neck: Supple with full range of motion. No jugular venous distension. No lymphadenopathy or thyromegaly. Cardiovascular: Regular rate and rhythm without murmurs, rubs, or gallops appreciated. Pulmonary: Clear to auscultation bilaterally without crackles, wheezes, or rhonchi. Normal respiratory effort with no use of accessory muscles. Abdomen: Soft, bowel sounds present, nontender, nondistended. No hepatosp lenomegaly or masses appreciated. Extremities: No clubbing, cyanosis, or edema. Skin: Normal temperature, turgor, and texture; no rash, ulcers, or subcutaneous nodules appreciated. Neurological: Right-sided facial droop. Right-sided weakness upper extremity > lower extremity, that is slightly improving. Cerebellar function with heel to donahue not intact on right. Psychiatric: Normal mood and affect. Alert and oriented to person, place, and time. Objective Labs Result Diagrams: 03/16/19 07:11 03/17/19 05:25 Assessment & Plan Assessment & Plan narrative: 58-year-old male with a past medical history significant for hypertension and hyperlipidemia who presented with right sided weakness. 1. Acute ischemic left pontine CVA, present on admission. Active. -Patient presented after having right sided weakness for 1 day with associated right facial droop and slurred speech. -Patient was not a tPA candidate. -CT brain and CTA head and neck did not demonstrate any acute intracranial or neck abnormalities, stenosis, aneurysms, or dissections. -MR stroke protocol demonstrated acute left pontine ischemia. -Received 325 mg ASA x1 dose on 03/16/19. Continue aspirin 81 mg daily and Plavix 75 mg daily as patient is high risk of VTE with intra atrial shunt and possible ischemic changes on echocardiogram. -Continue Lipitor 40 mg daily at bedtime. -Continue neuro checks per stroke protocol. NIHSS QShift. -Continue monitoring closely on telemetry. -Passed swallow evaluation and advanced diet to heart health / carb consistent. -Continue physical, occupational, and speech therapy. Patient is a good candidate for inpatient rehabilitation vs SNF pending cardiac workup as below. 2. Abnormal echocardiogram, present on admission. Active. -Interatrial cardiac shunt noted on an echocardiogram without evidence of LV thrombus or presence of a PFO. Likely ASD. -Cardiac risk factors include: Hypertension, hyperlipidemia, diabetes mellitus type 2, significant family history, age, gender, possible obstructive sleep apnea. -Echocardiogram demonstrated LV normal in size with EF 50-55%, posterolateral wall, basal anterolateral wall, mid anterolateral wall and apical inferior wall hypokinesis. No LV thrombus. RV normal in size and function. Intraatrial shunt. No significant valvular pathology seen. Ascending aorta is moderately enlarged and aortic arch is mild-moderately enlarged. IVC is dilated (diameter is greater than 2.1 cm) yet it collapses greater than 50% with a sniff. This suggests a right atrial pressure of 8 mm Hg. -Nuclear medicine stress test pending at this time, will follow up 3. Diabetes mellitus type II, chronic but newly diagnosed, present on admission. Active. -Hemoglobin A1c 11.0%. -continue Lantus 10 units daily at bedtime. Consider starting oral anti-hype rglycemic toward end of hospitalization. -Continue ACHS blood glucose checks and low-dose correctional scale insulin. -Continue carbohydrate/heart healthy diet. 4. Hypertension, chronic and untreated, present on admission. Active. -blood pressure stable -will start patient on lisinopril 5 mg p.o. daily -monitor blood pressure 5. Hyperlipidemia, chronic, present on admission. Active. -Fasting lipid panel demonstrated: Total cholesterol 197, triglycerides 170, LDL 125, HDL 38. -Continue to atorvastatin 40 mg daily at bedtime. 6. Incidental right thyroid nodule, present on admission. Stable. -TSH 1.86. -Thyroid US revealed 2.3 cm left lower pole thyroid nodule which is highly suspicious. Fine-needle aspiration is recommended.. -Will have patient follow up on outpatient basis for biopsy set up Disposition: Pending stress test results. Possible discharge to SNF within next two days Quality VTE Deep Vein Thrombosis/Pulmonary Embolism Present on Admission: Yes
--- NOTE | 2019-03-18 16:28 | CM.DANOTE ---
DCP/Assessment: Reviewed chart. Patient is a 58yr old male admitted [facility] with [facility]. No PCP listed. Primary payor is 1) Out of State/[place]. Patient seen by therapy and current recommendation is inpatient acute rehab at time of d/c. Patient currently requiring all three therapies PT/OT/ST. Met with patient and spouse/Mery at bedside explained CM/SW role. Patient sitting in recliner with obvious right sided deficits and speech difficulty. Patient reports that he was completely I in ADL's. Patient and spouse moved to [place] approximately 2yrs ago. Since that time patient has not been established with local practitioner for medical care. Patient reports that he had no idea he had high BP and blood sugars. Patient reports that he is agreeable to inpatient rehab if accepted and can get authorized by insurance. Notified patient that CM team would contact both [facility] inpatient rehab and [facility] for availability. LATHER APPRENTICE asked [facility]/Manisha to fax and call both inpatient acute facilities. Patient and spouse aware if patient does not get accepted or insurance does not authorize they will need to consider either SNF vs. Home. Patient aware and prefers inpatient rehabilitation. Provided [place] SNF list to patient and spouse if needed. Patient agreeable to review. P: Pending. Inpatient rehabilitation current recommendation. [facility] currently reviewing. Jasmin has not called back. CM team to follow closely. CHRISTOPHER Scott Discharge Planning/Care Management CM Discharge Assessment Start: 03/18/19 16:16 Freq: Status: Active Protocol: Document 03/18/19 16:16 KJS (Rec: 03/18/19 16:28 KJS [id number]) Discharge Planning Assessment Assigned Senior Branch Manager CHRISTOPHER Scott Contact Information Mery Packer (spouse) Advance Directives? No Advance Directives on File No History Provided By Patient Significant Other Medical Record Prior Living Arrangements House Household Members spouse Type of transporation used prior to Drives own vehicle admit Independent with ADL's Yes Is patient alert and oriented? Yes Caregiver for Another No Comment Inpatient Acute Rehabilation recommended. Discharge Plan Inpatient Rehab Unit Referrals Initiated Other Medicare Choice List Provided Yes Whiteboard Updated in Patient Room with Yes name and ext. # of Senior Branch Manager Review Status In Process Next Review Type Continued Stay Review
--- NOTE | 2019-03-18 18:37 | OT.IP.TRT ---
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 (03/16/19) Occupational Therapy Treatment Note M2 OT-IP Current Condition Start: 03/17/19 15:49 Freq: Status: Active Protocol: Document 03/17/19 09:00 [facility] (Rec: 03/17/19 16:23 [facility] [id number]) Occupational Therapy Current Condition Current Condition Evaluation Date 03/17/19 Treatment Diagnosis Acute left pontine ischemia Diagnosis Onset Date 03/16/19 Weight Bearing Status Weight Bearing Status Weight Bear as Tolerated M3 OT- IP Subjective and Pain Start: 03/17/19 15:49 Freq: Status: Active Protocol: Document 03/18/19 18:28 [facility] (Rec: 03/18/19 18:36 [facility] [id number]) OT- Subjective Occupational Therapy Visit Type Type Treatment Note Visit Start Time 14:50 Visit Stop Time 15:10 Total Visit Minutes 55 Notes Also saw pt from 1600 to 1635. Occupational Therapy Visit Comments Patient Comments Pt agreeable to do therapy in PM. OT Pain Assessment Pain When Pain Assessed At Rest Pain Present Pain Present Denied Pain M4 OT- IP ADL's Start: 03/17/19 15:49 Freq: Status: Active Protocol: Document 03/18/19 18:28 [facility] (Rec: 03/18/19 18:36 [facility] [id number]) OT DYA-Qjpm-Pshxfof General Evaluation Self-Feeding Ability Maximum Assistance Comments OT Self-Feeding Comments Pt able to use right hand to hold pudding cup and eat with left hand. Pt still not able to use right hand to self feed at this time, even with large handled utensil, due to decreased strength and control with RUE. Encouraged pt to use right hand grossly to hold larger items, hold bowl in place while eating,etc.... M5 OT- IP IADL's Start: 03/17/19 15:49 Freq: Status: Active Protocol: Document 03/17/19 09:00 [facility] (Rec: 03/17/19 16:23 [facility] [id number]) OT-Instrumental Activities of Daily Living Home Safety Awareness Home Safety Comments To continue to assist for independence for IADl needs, at this time pt's will have to assist due to physically unable to do IADL need at this time due to decreased functional use of RUE, decreased dynamic sitting and standing balance. M6 OT- IP Functional Cognition Start: 03/17/19 15:49 Freq: Status: Active Protocol: Document 03/18/19 18:28 [facility] (Rec: 03/18/19 18:36 [facility] [id number]) Cognitive Factors Limiting Selfcare Function Cognitive Ability Level of Alertness Alert Patient Orientation Name Place Situation Attention Span Ability Capable of Focused Attention Capable of Sustained Attention Ability to Follow Commands Able to Follow One Step Commands Memory Description Short Term Impaired Safety Awareness Underestimates Need for Assistance Problem Solving Ability Needs Assist to Identify Solutions Cognitive Comments Cognitive Assessment Comments Pt still needing reminders for safety awareness and to incorporate RUE and RLE during mobility needs. M7 OT- IP Mobility and Balance Start: 03/17/19 15:49 Freq: Status: Active Protocol: Document 03/18/19 18:28 [facility] (Rec: 03/18/19 18:36 [facility] [id number]) OT-Transfer Assessment Sit to and From Stand Sit to and from Stand Moderate Assistance 1 Person Assistance 2 Person Assistance Transfers Transfer Ability Moderate Assistance 1 Person Assistance 2 Person Assistance Technique Transfer Destination Bed Chair Devices Transfer Assistive Devices Gait Belt Front Wheeled Walker Comments Mobility Comments Pt needing assist for trunk control and control at elbow to assist to place weight through his right hand on FWW. Today pt with increased time able to bring hand up to place on FWW and able to reach back to recliner to sit, however still needing assist to help stabilize at elbow so able to equally place weight on right and left UE while sitting versus compensating by leaning to the left side. OT- Balance Assessment Sitting Balance and Reactions Static Sitting Balance Ability Good Dynamic Sitting Balance Ability Fair Standing Balance and Reactions Static Standing Balance Ability Poor M8 OT- IP Objective Assessments Start: 03/17/19 15:49 Freq: Status: Active Protocol: Document 03/17/19 09:00 [facility] (Rec: 03/17/19 16:23 [facility] [id number]) OT Gross Range of Motion Upper Extremity Range of Motion Assessment Right Impaired ROM Impairments Elbow WFL, shoulder unable to raise arm up and tends to compensate by hiking up his right shoulder. Pt able to open and close his hand. 7/2 use of PVC frame to AAROM for RUE for shoulder flexion, external rotation, elbow flexion in supine. OT Strength Upper Extremity Strength Assessment Right Impaired Shoulder 3-/5 Elbow 3/5 Forearm 3-/5 Wrist 3-/5 Hand 3/5 Hand Residential Program Director Strength Hand Dominance Right Comments Strength Comments LUE WFL OT-Muscle Tone Assessment Muscle Tone WNL No Muscle Tone Location Right Upper Extremity Type of Tone Hypotonicity Severity of Tone Moderate Manifestation of Tone Ataxia OT Sensation Assessment Comments Summary Comments Intact for light touch, proprioception and kinesthesia Edema Edema Present Edema Comments MIn of right hand. M9 OT- IP Assessment and Plan Start: 03/17/19 15:49 Freq: Status: Active Protocol: Document 03/18/19 18:28 [facility] (Rec: 03/18/19 18:36 [facility] [id number]) OT Summary Assessment and Plan Potential Rehabilitation Potential Excellent Analytic Complexity at Evaluation Low Summary OT Impairments Range of Motion Strength Balance Coordination Tone Functional Cognition Functional Mobility Self-Feeding Grooming Dressing Toileting Bathing Toilet Transfers Shower Transfers Progress Towards Goals Progressing Toward Goals Assessment Summary Increase control with right UE today and able to assist for self feeding to hold pudding cup. Pt will greatly benefit from inpt acute rehab as progressing well. Goals Self-Feeding Goal Minimal Assistance Grooming Goal Moderate Assistance Dressing Goal Moderate Assistance Toileting Goal Moderate Assistance Bathing Goal Moderate Assistance Toilet Transfer Goal Contact Guard Assistance Shower Transfer Goal Minimal Assistance Patient/Caregiver Education Goal Caregiver Independent Assisting Patient OT-Other Goals All goals above with incorporating/using RUE. Days to Meet Goals 10 Frequency of Treatment Frequency Of Treatment Twice a Day Treatment Plan OT Treatment Plan ADL Training Functional Cognition Training Functional Mobility Neuromuscular Re-education Patient/Family Education Discharge Planning Other Treatment Recommendations and Next Exercises with RUE PVC frame Treatment Focus Discharge Recommendations OT Discharge Recommendations SNF Rehab Acute Rehab Home Equipment Needs Pending progress, may need BSC , FWW, shower chair
--- NOTE | 2019-03-18 19:24 | PC.NURSE ---
Evening note: Tre remains Ox3 & situation, speech clear but delayed, able to speak full sentences & tell me about his career. NIH 5 for weakness/drift to RUE and RLE, can lift RLE off bed and hold it up which he could not do yesterday. Right hand turn down worker still very weak compared to left. VS are stable. RA oxygen 97-98% Denies pain or nausea. Tele sinus. CBG 214 pre-meal & SS coverage given. Needed set-up assist for meal, otherwise able to feed self. Denies other needs/concerns tonight, using call button appropriately. Fall precautions in place, alarm active for safety.
[2019-03-18] MEDS: ATORVASTATIN 20 MG TABLET 40 MG PO (20:44)
[2019-03-18] MEDS: INSULIN GLARGINE 100 UNIT/ML 3ML PEN 10 UNIT SUBCUT (20:45)
[2019-03-19 06:20] LABS: Add Manual Diff / Slide Review NO; Basophils Absolute Auto 100 /uL (0-100); Basophils Percent Auto 0.8 % (0-2); Eosinophils Absolute Auto 100 /uL (0-450); Eosinophils Percent Auto 1.3 % (2-4); Hemoglobin 15.7 g/dL (13.5-17.5); Lymphocytes Absolute Auto 1700 /uL (1100-4500); Lymphocytes Percent Auto 22.7 % (25-40); Mean Corpuscular HGB Conc 34.1 % (30-36); Mean Corpuscular Hemoglobin 29.7 PG (26-34); Monocytes Absolute Auto 700 /uL (0-900); Monocytes Percent Auto 9.5 % (3-14); Neutrophils Absolute Auto 4900 /uL (1500-7000); Neutrophils Percent Auto 65.7 % (50-75); Platelet Count 184 X10^3/uL (150-400); Red Blood Cell Count 5.29 X10^6/uL (4.5-5.9); Red Cell Distribution Width 13.4 % (11.6-14.8); White Blood Cell Count 7.4 X10^3/uL (4.5-11.0)
[2019-03-19 06:34] VITALS: BP 145/88; PULSE 72; RESP 17; TEMP 36.4; O2SAT 98
[2019-03-19 06:39] LABS: BUN Creatinine Ratio 21.3 (6-22); Blood Urea Nitrogen 17 mg/dL (9-20); Calcium 8.7 mg/dL (8.4-10.2); Carbon Dioxide 24 mmol/L (22-32); Chloride 110 mmol/L (98-107); Estimated Glomerular Filt Rate > 60.0 mL/min (>60); Glucose 224 mg/dL (80-110); HEMOLYSIS 16 (0-50); Potassium 3.5 mmol/L (3.4-5.1); Sodium 143 mmol/L (137-145)
[2019-03-19 08:15] VITALS: BP 142/94; PULSE 75; RESP 16; TEMP 36.2; O2SAT 97
[2019-03-19] MEDS: INSULIN ASPART 100 UNIT/ML INSULN PEN SUBCUT ×2 (08:19→12:17)
--- NOTE | 2019-03-19 09:16 | PC.NURSE ---
Pt NIH stroke scale a 3. Pt does has some slurred speech and his r.arm does drift down when trying to lift it up. He is totally A&O3. Denies pain at this time. Visiting with his now.
--- NOTE | 2019-03-19 09:20 | PT.IPTN ---
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 (03/16/19) Physical Therapy Treatment Note M2 PT-IP Current Condition Start: 03/16/19 12:46 Freq: NEEDED Status: Active Protocol: Document 03/17/19 11:40 IJS (Rec: 03/17/19 12:25 IJS [id number]) Physical Therapy Current Condition Current Condition Evaluation Date 03/16/19 Weight Bearing Status Weight Bearing Status Full Weight Bearing M3 PT-IP Subjective Start: 03/16/19 12:46 Freq: NEEDED Status: Active Protocol: Document 03/19/19 11:19 GGD (Rec: 03/19/19 11:20 GGD [id number]) Subjective Physical Therapy Visit Type Type Patient Refusal Notes Pt is NPO for a test and would like to wait until after test . Will see in PM. M4 PT-IP Mo Discharge
[2019-03-19] MEDS: ASPIRIN EC 81 MG TABLET PO (09:47)
[2019-03-19] MEDS: ENOXAPARIN 40 MG/0.4 ML SYRINGE SUBCUT (09:47)
[2019-03-19] MEDS: LISINOPRIL 5 MG TABLET PO (09:47)
[2019-03-19] MEDS: SODIUM CHLORIDE 0.9% FLUSH 10 ML IV (09:47)
[2019-03-19] MEDS: CLOPIDOGREL 75 MG TABLET PO (09:47)
--- NOTE | 2019-03-19 11:45 | CM.DPC ---
DCP/continued: Reviewed chart. Spoke with Dr. Ruelas in AM rounds. She reports patient will be undergoing second part of stress test today. At this time d/c date unknown. PHYSICAL THERAPY AID requested that ASSEMBLY MACHINE SET UP MECHANIC/Manisha [facility] re: referral status? Hopefully patient will be approved and accepted at inpatient rehab. Other options are SNF vs. home. Patient and spouse aware. P: Pending. 2 inpatient rehabs are evaluating for admit and authorization. CHRISTOPHER Scott
[2019-03-19 12:05] VITALS: BP 140/90; PULSE 74; RESP 16; TEMP 36.6; O2SAT 96
--- NOTE | 2019-03-19 14:28 | PT.IPTN ---
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 (03/16/19) Physical Therapy Treatment Note M2 PT-IP Current Condition Start: 03/16/19 12:46 Freq: NEEDED Status: Active Protocol: Document 03/17/19 11:40 IJS (Rec: 03/17/19 12:25 IJS [id number]) Physical Therapy Current Condition Current Condition Evaluation Date 03/16/19 Weight Bearing Status Weight Bearing Status Full Weight Bearing M3 PT-IP Subjective Start: 03/16/19 12:46 Freq: NEEDED Status: Active Protocol: Document 03/19/19 14:20 SA (Rec: 03/19/19 14:28 SA [email or web address]) Subjective Physical Therapy Visit Type Type Treatment Note Visit Start Time 13:54 Visit Stop Time 14:18 Total Visit Minutes 24 Notes Pt up in chair, present. Agreeable to PT. Physical Therapy Visit Comments Patient Comments Had lunch and feel better. Therapy Pain Assessment Pain When Pain Assessed At Rest Pain Present Pain Present Denied Pain M4 PT-IP Mobility and Gait Start: 03/16/19 12:46 Freq: NEEDED Status: Active Protocol: Document 03/19/19 14:20 SA (Rec: 03/19/19 14:28 SA [email or web address]) PT-Transfer Assessment Sit to and From Stand Sit to and from Stand Moderate Assistance 1 Person Assistance Use of Upper Extremities Equipment Transfer Assistive Device Gait Belt Front Wheeled Walker Orthotic/Prosthetic Devices or Brace: No Transfers Transfer Destination Bed Chair Transfer Technique pt ambulated using FWW Transfer Ability Level of Assist Minimal Assistance Moderate Assistance 1 Person Assistance Comments Mobility Comments Repeated sit to stands from EOB with use of rail and UEs, Min A and mod cues for RUE/LE use. Gait Assessment Gait Gait Assistance Required: Minimum Assistance 1 Person Assist Distance (Feet) 22 Able to Maintain Weight Bearing Status Yes During Gait Assistive Devices Assistive Device Gait Belt Front Wheeled Walker Orthotic/Prosthetic Devices or Brace: No Gait Deviations General Gait Pattern Antalgic Decreased Stride Length Decreased Feet Clearance Lateral Trunk Lean Factors Limiting Gait Function Factors Limiting Gait Function Decreased Activity Tolerance Decreased Sensation Decreased Strength Difficulty Following Directions Incoordination Comments Gait Comments Focus on RLE use with gait training, quad contraction and weight shift. Pt had walked about 12 feet sat and then another 12 feet. R knee buckle x 1 with quick self correction. M5 PT-IP Objective Assessments Start: 03/16/19 12:46 Freq: NEEDED Status: Active Protocol: Document 03/16/19 12:20 IJS (Rec: 03/16/19 13:09 IJS [id number]) Orientation Orientation/Cognition Level of Alertness Alert Orientation Name Age Birthday Month Date Year Day of Week Place Situation Safety Awareness Understands Safety Issues Memory Description No Deficits Noted Comments Tends to be a little impulsive , cues to slow down. Gross Range of Motion Upper Extremity ROM Assessment Within Functional Limits Lower Extremity ROM Assessment Right Impaired Impairments Decreased dorsi flexion Strength Upper Extremity Strength Assessment Right Impaired Shoulder 3-/5 Wrist 3-/5 Hand 3/5 Lower Extremity Strength Assessment Right Impaired Knee 3/5 Ankle 2/5 Coordination Assessment Gross Coordination Gross Coordination Impaired Assessment Finger to Nose Test Minimal Impairment Pronation/Supination Test Minimal Impairment Heel on Ruiz Test Minimal Impairment Coordination Comments Slow moving right UE/LE, slight upgoing toe on the right to Babinski Sensation Assessment Sensation Gross Sensation WNL Muscle Tone Muscle Tone WNL No Muscle Tone Location Right Lower Extremity Type of Tone Hypotonicity Manifistation of Tone Ataxia Right Upper Extremity Type of Tone Hypotonicity Manifistation of Tone Ataxia M6 PT-IP Treatment Start: 03/16/19 12:46 Freq: NEEDED Status: Active Protocol: Document 03/19/19 14:20 SA (Rec: 03/19/19 14:28 SA [email or web address]) Physical Therapy Treatment Exercises Exercises Ankle Pumps Gluteal Sets Seated Knee Flexion/Extension Education Education Provided Safety Other Treatments Other Treatment Performed Discussed Acute Rehab vs SNF and expaectations with therapy . Pt to continue with ankle DF on his own. M7 PT-IP Assessment and Plan Start: 03/16/19 12:46 Freq: NEEDED Status: Active Protocol: Document 03/19/19 14:20 SA (Rec: 03/19/19 14:28 [email or web address]) PT Summary Assessment and Plan Summary Impairments Strength Balance Coordination Sensation Cognition Bed Mobility Transfers Gait Activity Tolerance Assessment Summary PT good rehab candidate for Acute rehab, improving R quad and ant tib mm recruitment with focus and cues. Pt would benefit from intense neuro rehab PT/OT/S[employer]CH[employer]. Frequency of Treatment Frequency Of Treatment Twice a Day Recommendations To Nursing Amount of Assist Needed 2 Person Assist Discharge Recommendations PT Discharge Recommendations SNF Rehab Acute Rehab Equipment Needed for Home Before FWW if pt is going home Discharge
--- NOTE | 2019-03-19 15:08 | PM.DS.1 ---
History of Present Illness Date Patient Seen: 03/19/19 Time Patient Seen: 15:08 Chief complaint: Rt side weakness Narrative: 58-year-old male who presented to the ED on 03/16/2019 with right-sided weakness. Patient was last seen well on 03/14/2019, at that time he felt significantly more fatigued and energy depleted than he in the past. On 03/15/2019 patient reports feeling wobbly and describes his gait as shuffling. Patient's felt patient's overall disposition was much more slower than his baseline. Patient reports waking up with bother upper and lower extremity right sided weakness this morning. Denied presence of weakness prior to bedtime. The morning of admission also noted to have slurring of words. Patient does not take any medications or OTC supplements. At times notes drinking a smoothe cocktail, one of the ingredients is TUMS. He is known to have a BP of 140/90 for at least 30+ years, by report. He was never on any anti-hypertensive agents. Patient complained of to polydipsia and polyuria over the past 1.5 years. Denies CP, palpitations, dizziness, lightheadedness, abdominal pain, nausea, vomiting, diarrhea, myalgia and myopathy. Snores while sleeping at times. Not known to have prior history of heart disease, LA, cerebrovascular events, thrombosis, or diabetes. Patient relocated from [place] 2 years ago, after jail. He does not have a PCP. He has not had a preventive follow-up care for at least two years. Family history is significant for hemorrhagic CVA (father, age 90) and diabetes (mother and sister). Lifelong non-smoker. EtOH consumption is rare. Discharge Providers Date of admission: 03/16/19 10:23 Discharge Date: 03/19/19 Consults: 03/16/19 10:07 Consult to Occupational Therapy Evaluate & Treat Comment: Physician Instructions: Evaluate and treat Consult to Physical Therapy Evaluate & Treat Comment: Physician Instructions: Evaluate and Treat Consult to Speech Therapy Evaluate & Treat Comment: Physician Instructions: Evaluate and treat 03/17/19 05:15 Consult to Discharge Planning Routine Comment: needs pcp. needs to be d/c to rehab. Discharge provider: Rosio Ruelas MD Summary Discharge Diagnosis: Ischemic left pontine CVA, present on admission, active, improving CAD, as found on echocardiogram and stress test, chronic but newly diagnosed, present on admission Diabetes mellitus type 2, chronic but newly diagnosed, present on admission Hypertension, chronic and untreated, present on admission Hyperlipidemia, chronic, present on admission Incidental right thyroid nodule, present on admission Hospital Course: ED presentation and work-up Labs 03/16/2019 @ 0711 WBC 7.1 Hgb 16.5 Plt 190 Trop 0.020 Na 141 K 3.7 Cl 107 Ca 9.2 CO2 23 BUN14 Cr 0.9 BUN/Cr 15.6 Glu 309 T. Bili 1.2 AST 23 ALT 26 Alk Phos 82 Urine drug scree is negative CT head, 03/16/2019. No acute intracranial hemorrhage. Atherosclerotic changes of the intracranial portions of the bilateral internal carotid arteries and right vertebral artery. CTA head and neck, 03/16/2019. [id number] atherosclerosis involving the right intracranial internal carotid artery, right distal vertebral artery, and proximal right basilar artery WITHOUT high-grade narrowing or occlusion. Intracranial vessels are otherwise widely patent. There are no aneurysms or vascular malformations. Patent and otherwise unremarkable bilateral cervical carotid and vertebral arteries without significant atherosclerosis. There is no high-grade narrowing, occlusion, or evidence to suggest dissection or aneurysm. No abnormal enhancement of the brain. Right thyroid nodule. The thyroid ultrasound is recommended for throughout evaluation, which may be performed on a non-emergent basis. Additional post-admission work-up A1C 11.0 Chol 197 LDL 125 HDL 38 Trig 170 Brain MRI, 03/16/2019. Acute left pontine ischemia without hemorrhagic conversion. No additional areas of acute ischemia within the brain. Vague areas of increased flair signal within the supratentorial brain likely represent mild chronic small vessel ischemic changes. No abnormal enhancement or suspicious parenchymal lesions. Small inferior right mastoid effusion. Brain MR angiogram, 03/16/2019. No occlusions, aneurysms, or high-grade narrowing of the intracranial vessels. Neck MR Angiogram, 03/16/2019. No significant atherosclerosis, occlusions, high-grade narrowing, or aneurysms of the cervical carotid or vertebral arteries. ECHO, 03/16/2019. LVEF 50-55%. Posterolateral, basal anterolateral, mid-anterolateral, and apical inferior wall hypokinesis present. No LV thrombus. RV normal in size and function. No significant valvular pathology. Injection of contrast documented and inter atrial shunt. Ascending aorta is moderately enlarged. Aortic arch is dozd-eg-khtuzqynvj enlarged. IVC is dilated (diameter is greater than 2.1 cm) use of collapses greater than 50% with a sniff. This suggests a right atrial pressure of 8 mmHg. Stress test 03/18 and 03/19: Fixed inferolateral defect, suggestive of irreversible cardiac damage, consistent with CAD Patient was admitted with R sided weakness and found to have L ischemic pontine CVA. He was also found to have unctrolled HTN, HLD, DM Type II, and CAD. 1. Acute ischemic left pontine CVA, present on admission. Active. -Patient presented after having right sided weakness for 1 day with associated right facial droop and slurred speech. -Patient was not a tPA candidate. -CT brain and CTA head and neck did not demonstrate any acute intracranial or neck abnormalities, stenosis, aneurysms, or dissections. -MR stroke protocol demonstrated acute left pontine ischemia. -Received 325 mg ASA x1 dose on 03/16/19. Continue aspirin 81 mg daily and Plavix 75 mg daily as patient is high risk of VTE with intra atrial shunt and possible ischemic changes on echocardiogram. -Continue Lipitor 40 mg daily at bedtime. -Continue neuro checks per stroke protocol. NIHSS QShift. -Continue monitoring closely on telemetry. -Passed swallow evaluation and advanced diet to heart health / carb consistent. -Continue physical, occupational, and speech therapy. Patient is a good candidate for inpatient rehabilitation vs SNF pending cardiac workup as below. 2. CAD, chronic but newly diagnosed on admission, Active. -Interatrial cardiac shunt noted on an echocardiogram without evidence of LV thrombus or presence of a PFO. Likely ASD. -Cardiac risk factors include: Hypertension, hyperlipidemia, diabetes mellitus type 2, significant family history, age, gender, possible obstructive sleep apnea. -Echocardiogram demonstrated LV normal in size with EF 50-55%, posterolateral wall, basal anterolateral wall, mid anterolateral wall and apical inferior wall hypokinesis. No LV thrombus. RV normal in size and function. Intraatrial shunt. No significant valvular pathology seen. Ascending aorta is moderately enlarged and aortic arch is mild-moderately enlarged. IVC is dilated (diameter is greater than 2.1 cm) yet it collapses greater than 50% with a sniff. This suggests a right atrial pressure of 8 mm Hg. -Nuclear medicine stress test revealed fixed inferolateral defect -Cardiology recommends medical management with ASA/Plavix, Statin, BB, ACEI -Continue ASA 81mg PO daily, Plavix 75mg PO Daily, Atorvastatin 40mg PO QHS, Coreg 3.125mg PO BID, and Lisinopril 5mg PO Daily -per cardiology, if patient ever develops chest pain and there is concern for unstable blockage, he should get angiogram to assess severity of blockage 3. Diabetes mellitus type II, chronic but newly diagnosed, present on admission. Active. -BG continue to be elevated -Hemoglobin A1c 11.0%. -increase Lantus to 15 units daily at bedtime. -Continue ACHS blood glucose checks and low-dose correctional scale insulin. -Continue carbohydrate/heart healthy diet. 4. Hypertension, chronic and untreated, present on admission. Active. -blood pressure stable -started on lisinopril 5 mg p.o. daily and will add on Coreg 3.125mg PO BID -monitor blood pressure 5. Hyperlipidemia, chronic, present on admission. Active. -Fasting lipid panel demonstrated: Total cholesterol 197, triglycerides 170, LDL 125, HDL 38. -Continue to atorvastatin 40 mg daily at bedtime. 6. Incidental right thyroid nodule, present on admission. Stable. -TSH 1.86. -Thyroid US revealed 2.3 cm left lower pole thyroid nodule which is highly suspicious. Fine-needle aspiration is recommended.. -Recommend to have patient follow up on outpatient basis for biopsy set up Disposition: [facility] rehab in [facility]. Dr. Paulino Ochoa accepting doctor. Status at Discharge Functional status at discharge: uses cane/walker Overall status at discharge: patient is not back to baseline Time Spent with Patient Greater than 30 minutes Exam Vital Signs (past 8 hours): - 03/19/19 08:15 03/19/19 12:05 Temperature 97.1 F L 97.8 F Pulse Rate 75 74 Respiratory Rate 16 16 Blood Pressure 142/94 H 140/90 Pulse Oximetry 97 96 Oxygen Delivery Method Room Air Oxygen Flow Rate 0 Narrative Exam Narrative: General: No acute distress, sitting comfortably in bed HEENT: Normocephalic, atraumatic. Pupils equal, round, and reactive to light. Anicteric sclerae, moist conjunctivae. Right-sided facial droop, improving. Neck: Supple with full range of motion. No jugular venous distension. No lymphadenopathy or thyromegaly. Cardiovascular: Regular rate and rhythm without murmurs, rubs, or gallops appreciated. Pulmonary: Clear to auscultation bilaterally without crackles, wheezes, or rhonchi. Normal respiratory effort with no use of accessory muscles. Abdomen: Soft, bowel sounds present, nontender, nondistended. No hepatosplenomegaly or masses appreciated. Extremities: No clubbing, cyanosis, or edema. Skin: Normal temperature, turgor, and texture; no rash, ulcers, or subcutaneous nodules appreciated. Neurological: Right-sided facial droop. Right-sided weakness upper extremity > lower extremity, that is slightly improving. Cerebellar function with heel to donahue not intact on right. Psychiatric: Normal mood and affect. Alert and oriented to person, place, and time. Objective Labs Result Diagrams: 03/19/19 05:48 03/19/19 05:48 Labs: Laboratory Results - last 24 hr 03/19/19 03/19/19 05:48 05:48 WBC 7.4 RBC 5.29 Hgb 15.7 Hct 46.0 MCV 87.0 MCH 29.7 MCHC 34.1 RDW 13.4 Plt Count 184 Neut % (Auto) 65.7 Lymph % (Auto) 22.7 L [place] % (Auto) 9.5 Eos % (Auto) 1.3 L Baso % (Auto) 0.8 Neut # (Auto) 4900 Lymph # (Auto) 1700 [place] # (Auto) 700 Eos # (Auto) 100 Baso # (Auto) 100 Sodium 143 Potassium 3.5 Chloride 110 H Carbon Dioxide 24 BUN 17 Creatinine 0.80 Estimated GFR > 60.0 BUN/Creatinine Ratio 21.3 Glucose 224 H Calcium 8.7 Discharge Plan Discharge Plan Patient Disposition: Released, Other Other facility: [facility]patient Rehab in [facility] Transportation[facility] Discharge Med Rec/Prescriptions Prescriptions: New acetaminophen 325 mg Tablet 650 mg PO Q6HR PRN (Reason: As Needed For Fever/Mild Pain) Qty: 15 RF: 0 insulin glargine [Lantus Solostar U-100 Insulin] 100 unit/mL (3 mL) Insulin Pen 15 unit subcut BEDTIME Qty: 10 RF: 0 lisinopril 5 mg Tablet 5 mg PO DAILY Qty: 30 RF: 0 carvedilol 3.125 mg tablet 3.125 mg PO BID Qty: 60 RF: 0 aspirin 81 mg Tablet,Delayed Release (Dr/Ec) 81 mg PO DAILY Qty: 30 RF: 0 clopidogrel 75 mg Tablet 75 mg PO DAILY Qty: 30 RF: 0 atorvastatin [Lipitor] 20 mg Tablet 40 mg PO BEDTIME Qty: 30 RF: 0 No Action No Known Home Medications RF: 0 Discharge Orders: Discharge (Order); Ordered 03/19/19 Ordered By: Rosio Ruelas Discharge Health Status Brief summary of current health status: Patient needs follow up regarding biopsy of thyroid nodule that is suspicious for malignancy Provider Discharge Instructions Diet: Diet as Tolerated, Regular, Carb-consistent/Diabetic, Low-fat and Low-sodium Liquid consistency: Normal/Thin [facility] Rehab type: Physical therapy, Occupational therapy and Speech therapy Visit Report/Discharge Packet Visit Report Forms: Stroke Signs & Symptoms Discharge Data Attending Provider: Kelly Glover Admit Date/Time: 03/16/19 10:23 Quality VTE Deep Vein Thrombosis/Pulmonary Embolism Present on Admission: Yes
[2019-03-19 15:20] VITALS: BP 139/89; PULSE 93; RESP 18; TEMP 36.6; O2SAT 93
--- NOTE | 2019-03-19 15:24 | P.DS_ITS ---
History of Present Illness Date Patient Seen: 03/19/19 Time Patient Seen: 15:08 Chief complaint: Rt side weakness Narrative: 58-year-old male who presented to the ED on 03/16/2019 with right-sided weakness. Patient was last seen well on 03/14/2019, at that time he felt significantly more fatigued and energy depleted than he in the past. On 03/15/2019 patient reports feeling wobbly and describes his gait as shuffling. Patient's felt patient's overall disposition was much more slower than his baseline. Patient reports waking up with bother upper and lower extremity right sided weakness this morning. Denied presence of weakness prior to bedtime. The morning of admission also noted to have slurring of words. Patient does not take any medications or OTC supplements. At times notes drinking a smoothe cocktail, one of the ingredients is TUMS. He is known to h ave a BP of 140/90 for at least 30+ years, by report. He was never on any anti- hypertensive agents. Patient complained of to polydipsia and polyuria over the past 1.5 years. Denies CP, palpitations, dizziness, lightheadedness, abdominal pain, nausea, vomiting, diarrhea, myalgia and myopathy. Snores while sleeping at times. Not known to have prior history of heart disease, [place], cerebrovascular events, thrombosis, or diabetes. Patient relocated from [place] 2 years ago, after correction. He does not have a PCP. He has not had a preventive follow-up care for at least two years. Family history is significant for hemorrhagic CVA (father, age 90) and diabetes (mother and sister). Lifelong non-smoker. EtOH consumption is rare. Discharge Providers Date of admission: 03/16/19 10:23 Discharge Date: 03/19/19 Consults: 03/16/19 10:07 Consult to Occupational Therapy Evaluate & Treat Comment: Physician Instructions: Evaluate and treat Consult to Physical Therapy Evaluate & Treat Comment: Physician Instructions: Evaluate and Treat Consult to Speech Therapy Evaluate & Treat Comment: Physician Instructions: Evaluate and treat 03/17/19 05:15 Consult to Discharge Planning Routine Comment: needs pcp. needs to be d/c to rehab. Discharge provider: Rosio Ruelas MD Summary Discharge Diagnosis: Ischemic left pontine CVA, present on admission, active, improving CAD, as found on echocardiogram and stress test, chronic but newly diagnosed, present on admission Diabetes mellitus type 2, chronic but newly diagnosed, present on admission Hypertension, chronic and untreated, present on admission Hyperlipidemia, chronic, present on admission Incidental right thyroid nodule, present on admission Hospital Course: ED presentation and work-up Labs 03/16/2019 @ 0711 WBC 7.1 Hgb 16.5 Plt 190 Trop 0.020 Na 141 K 3.7 Cl 107 Ca 9.2 CO2 23 BUN14 Cr 0.9 BUN/Cr 15.6 Glu 309 T. Bili 1.2 AST 23 ALT 26 Alk Phos 82 Urine drug scree is negative CT head, 03/16/2019. No acute intracranial hemorrhage. Atherosclerotic changes of the intracranial portions of the bilateral internal carotid arteries and right vertebral artery. CTA head and neck, 03/16/2019. Dpfd-mr-valrblvi atherosclerosis involving the right intracranial internal carotid artery, right distal vertebral artery, and proximal right basilar artery WITHOUT high-grade narrowing or occlusion. Intracranial vessels are otherwise widely patent. There are no aneurysms or vascular malformations. Patent and otherwise unremarkable bilateral cervical carotid and vertebral arteries without significant atherosclerosis. There is no high-grade narrowing, occlusion, or evidence to suggest dissection or aneurysm. No abnormal enhancement of the brain. Right thyroid nodule. The thyroid ultrasound is recommended for throughout evaluation, which may be performed on a non-emergent basis. Additional post-admission work-up A1C 11.0 Chol 197 LDL 125 HDL 38 Trig 170 Brain MRI, 03/16/2019. Acute left pontine ischemia without hemorrhagic conversion. No additional areas of acute ischemia within the brain. Vague areas of increased flair signal within the supratentorial brain likely represent mild chronic small vessel ischemic changes. No abnormal enhancement or suspicious parenchymal lesions. Small inferior right mastoid effusion. Brain MR angiogram, 03/16/2019. No occlusions, aneurysms, or high-grade narrowing of the intracranial vessels. Neck MR Angiogram, 03/16/2019. No significant atherosclerosis, occlusions, high- grade narrowing, or aneurysms of the cervical carotid or vertebral arteries. ECHO, 03/16/2019. LVEF 50-55%. Posterolateral, basal anterolateral, mid-anterolateral, and apical inferior wall hypokinesis present. No LV thrombus. RV normal in size and function. No significant valvular pathology. Injection of contrast documented and inter atrial shunt. Ascending aorta is moderately enlarged. Aortic arch is hejw-co-jfxmhxtymc enlarged. IVC is dilated (diameter is greater than 2.1 cm) use of collapses greater than 50% with a sniff. This suggests a right atrial pressure of 8 mmHg. Stress test 03/18 and 03/19: Fixed inferolateral defect, suggestive of irreversible cardiac damage, consistent with CAD Patient was admitted with R sided weakness and found to have L ischemic pontine CVA. He was also found to have unctrolled HTN, HLD, DM Type II, and CAD. 1. Acute ischemic left pontine CVA, present on admission. Active. -Patient presented after having right sided weakness for 1 day with associated right facial droop and slurred speech. -Patient was not a tPA candidate. -CT brain and CTA head and neck did not demonstrate any acute intracranial or neck abnormalities, stenosis, aneurysms, or dissections. -MR stroke protocol demonstrated acute left pontine ischemia. -Received 325 mg ASA x1 dose on 03/16/19. Continue aspirin 81 mg daily and Plavix 75 mg daily as patient is high risk of VTE with intra atrial shunt and possible ischemic changes on echocardiogram. -Continue Lipitor 40 mg daily at bedtime. -Continue neuro checks per stroke protocol. NIHSS QShift. -Continue monitoring closely on telemetry. -Passed swallow evaluation and advanced diet to heart health / carb consistent. -Continue physical, occupational, and speech therapy. Patient is a good candidate for inpatient rehabilitation vs SNF pending cardiac workup as below. 2. CAD, chronic but newly diagnosed on admission, Active. -Interatrial cardiac shunt noted on an echocardiogram without evidence of LV thrombus or presence of a PFO. Likely ASD. -Cardiac risk factors include: Hypertension, hyperlipidemia, diabetes mellitus type 2, significant family history, age, gender, possible obstructive sleep apnea. -Echocardiogram demonstrated LV normal in size with EF 50-55%, posterolateral wall, basal anterolateral wall, mid anterolateral wall and apical inferior wall hypokinesis. No LV thrombus. RV normal in size and function. Intraatrial shunt. No significant valvular pathology seen. Ascending aorta is moderately enlarged and aortic arch is mild-moderately enlarged. IVC is dilated (diameter is greater than 2.1 cm) yet it collapses greater than 50% with a sniff. This suggests a right atrial pressure of 8 mm Hg. -Nuclear medicine stress test revealed fixed inferolateral defect -Cardiology recommends medical management with ASA/Plavix, Statin, BB, ACEI -Continue ASA 81mg PO daily, Plavix 75mg PO Daily, Atorvastatin 40mg PO QHS, Coreg 3.125mg PO BID, and Lisinopril 5mg PO Daily -per cardiology, if patient ever develops chest pain and there is concern for unstable blockage, he should get angiogram to assess severity of blockage 3. Diabetes mellitus type II, chronic but newly diagnosed, present on admission. Active. -BG continue to be elevated -Hemoglobin A1c 11.0%. -increase Lantus to 15 units daily at bedtime. -Continue ACHS blood glucose checks and low-dose correctional scale insulin. -Continue carbohydrate/heart healthy diet. 4. Hypertension, chronic and untreated, present on admission. Active. -blood pressure stable -started on lisinopril 5 mg p.o. daily and will add on Coreg 3.125mg PO BID -monitor blood pressure 5. Hyperlipidemia, chronic, present on admission. Active. -Fasting lipid panel demonstrated: Total cholesterol 197, triglycerides 170, LDL 125, HDL 38. -Continue to atorvastatin 40 mg daily at bedtime. 6. Incidental right thyroid nodule, present on admission. Stable. -TSH 1.86. -Thyroid US revealed 2.3 cm left lower pole thyroid nodule which is highly owen picious. Fine-needle aspiration is recommended.. -Recommend to have patient follow up on outpatient basis for biopsy set up Disposition: [facility] Acute Inpatient rehab in [facility]. Dr. Paulino Ochoa accepting doctor. Status at Discharge Functional status at discharge: uses cane/walker Overall status at discharge: patient is not back to baseline Time Spent with Patient Greater than 30 minutes Exam Vital Signs (past 8 hours): - 03/19/19 08:15 03/19/19 12:05 Temperature 97.1 F L 97.8 F Pulse Rate 75 74 Respiratory Rate 16 16 Blood Pressure 142/94 H 140/90 Pulse Oximetry 97 96 Oxygen Delivery Method Room Air Oxygen Flow Rate 0 Narrative Exam Narrative: General: No acute distress, sitting comfortably in bed HEENT: Normocephalic, atraumatic. Pupils equal, round, and reactive to light. Anicteric sclerae, moist conjunctivae. Right-sided facial droop, improving. Neck: Supple with full range of motion. No jugular venous distension. No lymphadenopathy or thyromegaly. Cardiovascular: Regular rate and rhythm without murmurs, rubs, or gallops appreciated. Pulmonary: Clear to auscultation bilaterally without crackles, wheezes, or rhonchi. Normal respiratory effort with no use of accessory muscles. Abdomen: Soft, bowel sounds present, nontender, nondistended. No hepatosplenomegaly or masses appreciated. Extremities: No clubbing, cyanosis, or edema. Skin: Normal temperature, turgor, and texture; no rash, ulcers, or subcutaneous nodules appreciated. Neurological: Right-sided facial droop. Right-sided weakness upper extremity > lower extremity, that is slightly improving. Cerebellar function with heel to donahue not intact on right. Psychiatric: Normal mood and affect. Alert and oriented to person, place, and time. Objective Labs Result Diagrams: 03/19/19 05:48 03/19/19 05:48 Labs: Laboratory Results - last 24 hr 03/19/19 03/19/19 05:48 05:48 WBC 7.4 RBC 5.29 Hgb 15.7 Hct 46.0 MCV 87.0 MCH 29.7 MCHC 34.1 RDW 13.4 Plt Count 184 Neut % (Auto) 65.7 Lymph % (Auto) 22.7 L [place] % (Auto) 9.5 Eos % (Auto) 1.3 L Baso % (Auto) 0.8 Neut # (Auto) 4900 Lymph # (Auto) 1700 [place] # (Auto) 700 Eos # (Auto) 100 Baso # (Auto) 100 Sodium 143 Potassium 3.5 Chloride 110 H Carbon Dioxide 24 BUN 17 Creatinine 0.80 Estimated GFR > 60.0 BUN/Creatinine Ratio 21.3 Glucose 224 H Calcium 8.7 Discharge Plan Discharge Plan Patient Disposition: Released, Other Other facility: [facility] Acute INpatient Rehab in [facility] Transportation: [facility] Discharge Med Rec/Prescriptions Prescriptions: New acetaminophen 325 mg Tablet 650 mg PO Q6HR PRN (Reason: As Needed For Fever/Mild Pain) Qty: 15 RF: 0 insulin glargine [Lantus Solostar U-100 Insulin] 100 unit/mL (3 mL) Insulin Pen 15 unit subcut BEDTIME Qty: 10 RF: 0 lisinopril 5 mg Tablet 5 mg PO DAILY Qty: 30 RF: 0 carvedilol 3.125 mg tablet 3.125 mg PO BID Qty: 60 RF: 0 aspirin 81 mg Tablet,Delayed Release (Dr/Ec) 81 mg PO DAILY Qty: 30 RF: 0 clopidogrel 75 mg Tablet 75 mg PO DAILY Qty: 30 RF: 0 atorvastatin [Lipitor] 20 mg Tablet 40 mg PO BEDTIME Qty: 30 RF: 0 No Action No Known Home Medications RF: 0 Discharge Orders: Discharge (Order); Ordered 03/19/19 Ordered By: Rosio Ruelas Discharge Health Status Brief summary of current health status: Patient needs follow up regarding biopsy of thyroid nodule that is suspicious for malignancy Provider Discharge Instructions Diet: Diet as Tolerated, Regular, Carb-consistent/Diabetic, Low-fat and Low- sodium Liquid consistency: Normal/Thin [facility] Rehab type: Physical therapy, Occupational therapy and Speech therapy Visit Report/Discharge Packet Visit Report Forms: Stroke Signs & Symptoms Discharge Data Attending Provider: Kelly Glover Admit Date/Time: 03/16/19 10:23 Quality VTE Deep Vein Thrombosis/Pulmonary Embolism Present on Admission: Yes
--- NOTE | 2019-03-19 15:50 | CM.DPC ---
DCP/continued: Received notification from Dr. Ruelas that patient okay to transfer to inpatient rehabilitation today. Asked AGER OPERATOR/Manisha to call [facility] in [facility] to see if they can accept today? Per Manisha, they can accept and MD accepting is Dr. Nash Ochoa. Met with patient and spouse both aware and agreeable to plan. Spouse agreeable to take patient via private auto this afternoon. Facility made aware that patient will leave [facility] around 4:00pm. RN given number to call report. P: Inpatient Rehabilitation at [facility] ([facility]) today. CHRISTOPHER Scott
--- NOTE | 2019-03-19 17:36 | OT.IP.TRT ---
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 (03/16/19) Occupational Therapy Treatment Note M3 OT- IP Subjective and Pain Start: 03/17/19 15:49 Freq: Status: Active Protocol: Document 03/19/19 17:29 [facility] (Rec: 03/19/19 17:36 [facility] [id number]) OT- Subjective Occupational Therapy Visit Type Type Treatment Note Visit Start Time 14:50 Visit Stop Time 15:10 Total Visit Minutes 53 Notes Pt also seen to help with car transfer and dressing from [id number]. Occupational Therapy Visit Comments Patient Comments Pt wanting to get dressed and getting ready to leave for inpt rehab. OT Pain Assessment Pain When Pain Assessed At Rest Pain Present Pain Present Denied Pain M4 OT- IP ADL's Start: 03/17/19 15:49 Freq: Status: Active Protocol: Document 03/19/19 17:29 [facility] (Rec: 03/19/19 17:36 [facility] [id number]) OT ADL-Dressing General Eval Upper Body Dressing Ability Moderate Assistance Lower Body Dressing Ability Moderate Assistance Areas Needing Assistance Button-Up Shirt/Blouse Pants/Shorts Comments OT Dressing Comments Pt needing MODA to help incorporate RUE for dressing needs. M6 OT- IP Functional Cognition Start: 03/17/19 15:49 Freq: Status: Active Protocol: Document 03/19/19 17:29 [facility] (Rec: 03/19/19 17:36 [facility] [id number]) Cognitive Factors Limiting Selfcare Function Cognitive Ability Level of Alertness Alert Patient Orientation Name Place Situation Attention Span Ability Capable of Focused Attention Capable of Sustained Attention Ability to Follow Commands Able to Follow One Step Commands Memory Description Short Term Impaired Safety Awareness Underestimates Need for Assistance Problem Solving Ability Needs Assist to Identify Solutions Cognitive Comments Cognitive Assessment Comments Pt doing better to remember to incorporate use of RUE for needs. M7 OT- IP Mobility and Balance Start: 03/17/19 15:49 Freq: Status: Active Protocol: Document 03/19/19 17:29 [facility] (Rec: 03/19/19 17:36 [facility] [id number]) OT-Transfer Assessment Sit to and From Stand Sit to and from Stand Moderate Assistance 1 Person Assistance Transfers Transfer Ability Moderate Assistance 1 Person Assistance Technique Transfer Destination Car Chair Devices Transfer Assistive Devices Gait Belt Front Wheeled Walker Comments Mobility Comments Assist for balance and support on RUE to get weight through RUE on the FWW. OT- Balance Assessment Sitting Balance and Reactions Static Sitting Balance Ability Good Dynamic Sitting Balance Ability Fair Standing Balance and Reactions Static Standing Balance Ability Poor M8 OT- IP Objective Assessments Start: 03/17/19 15:49 Freq: Status: Active Protocol: Document 03/17/19 09:00 [facility] (Rec: 03/17/19 16:23 [facility] [id number]) OT Gross Range of Motion Upper Extremity Range of Motion Assessment Right Impaired ROM Impairments Elbow WFL, shoulder unable to raise arm up and tends to compensate by hiking up his right shoulder. Pt able to open and close his hand. OT Strength Upper Extremity Strength Assessment Right Impaired Shoulder 3-/5 Elbow 3/5 Forearm 3-/5 Wrist 3-/5 Hand 3/5 Hand Bag Worker Strength Hand Dominance Right Comments Strength Comments LUE WFL OT-Muscle Tone Assessment Muscle Tone WNL No Muscle Tone Location Right Upper Extremity Type of Tone Hypotonicity Severity of Tone Moderate Manifestation of Tone Ataxia OT Sensation Assessment Comments Summary Comments Intact for light touch, proprioception and kinesthesia Edema Edema Present Edema Comments MIn/MOD swellikng of right hand. M9 OT- IP Assessment and Plan Start: 03/17/19 15:49 Freq: Status: Active Protocol: Document 03/19/19 17:29 [facility] (Rec: 03/19/19 17:36 [facility] [id number]) OT Summary Assessment and Plan Potential Rehabilitation Potential Excellent Analytic Complexity at Evaluation Low Summary Progress Towards Goals Progressing Toward Goals Assessment Summary Pt going to inpt rehab today. Discharge Recommendations OT Discharge Recommendations Acute Rehab
--- NOTE | 2019-03-20 10:32 | CM.DPC ---
DCP Cont: Faxed discharge summary to [facility], Attn: Alison at fax # [phone]. Fax confirmation scanned in. Manisha Garcia, a[employer]vi Export Sales Assistant
--- NOTE | 2019-03-24 13:22 | DI.NM.S_ITS ---
DATE OF SERVICE: 03/18/2019 PROCEDURE: Pharmacological perfusion study. INDICATIONS: Diabetes mellitus, hypertension, hyperlipidemia, abnormal echo with posterolateral apical inferior and basal mid anterior wall hypokinesis with ejection fraction of 50% to 55, history of CVA. RADIOPHARMACEUTICAL: 21.6 mCi technetium-99m Myoview IV was injected at stress and 21.5 mCi technetium-99m Myoview IV was injected at rest. CARDIAC STRESS: Patient underwent IV Lexiscan perfusion study under the supervision of an attending staff. He remained hemodynamically stable. Baseline EKG revealed sinus rhythm with up to 0.[address] depression in inferior leads and lead V to V6 with T-wave inversion. During stress, there was no new convincing ischemic changes. There were no significant arrhythmias seen. No significant symptoms were reported. RAW DATA: There was increased subdiaphragmatic activity. GATED STUDY: Resting stress LV ejection fraction 51% and I don't see any obvious wall motion abnormalities. Stress LV ejection fraction reported to be 64%. There is no transient ischemic dilatation. TID ratio is 1.03, which is within normal limits. Resting LV end-diastolic volume is 127 mL. Lung/heart ratio is 0.34, which is within normal limits. MYOCARDIAL PERFUSION SCAN: Please note, this patient doesn't have any prone images. Stress supine and resting supine images were compared to each other. It appears to be that patient has predominantly fixed, moderate-size, moderate- to-severely decreased perfusion of inferolateral wall extending inferior apex. No reversible ischemia. CONCLUSION: This is an abnormal myocardial perfusion study consistent with moderate-sized, cazdyjhw-il-hodhzs infarction of inferolateral wall and inferior apex. Resting left ventricular (LV) ejection fraction about 51%. Tre Packer - KARTIK/allyn/ doc#: [id number]/job#: [id number] dd: 03/19/2019 12:30:00 dt: 03/19/2019 13:31:00 DICTATING MD/COPIES TO: Cesario Roberts MD COPIES MNE: [id number]
== END 2019-03-19 15:53 | disposition home or self-care (01) | DRG 65 ==
LOC: ED 08:26 → AC 10:26
PROVIDERS: Internal Medicine; Nurse Practitioner Gerontology; Admitting Provider Internal Medicine; Emergency Provider Emergency Medicine; Visit Provider Internal Medicine
DX: I63.29 Cerebral infarction due to unspecified occlusion or stenosis of other precerebral arteries (principal); G81.91 Hemiplegia, unspecified affecting right dominant side; Q21.1 Atrial septal defect; R29.706 NIHSS score 6; E11.9 Type 2 diabetes mellitus without complications; I10 Essential (primary) hypertension; E04.1 Nontoxic single thyroid nodule; I25.10 Atherosclerotic heart disease of native coronary artery without angina pectoris; E78.5 Hyperlipidemia, unspecified
CPT/HCPCS: 36415; 36591; 70450; 70496; 70498; 70548; 70553; 76536; 78452; 80048; 80053; 80061; 80305; 81003; 82550; 82962; 83036; 83735; 84443; 84484; 85025; 85610; 85730; 92507; 92610; 93005; 93010; 93016; 93017; 93018; 93041; 93306; 94762; 96360; 96361; 97110; 97116; 97162; 97166; 97530; 97535; 99284; 99285; A9502; J1650; J2785; Q9967

== ENCOUNTER → 2019-06-24 14:45 | Outpatient (CLI) | payer BC, SELFPAY ==
[2019-03-16 11:13] VITALS: BMI 29.8
[2019-06-24 16:37] LABS: BUN Creatinine Ratio 18.2 (6-22); Blood Urea Nitrogen 20 mg/dL (9-20); Calcium 9.5 mg/dL (8.4-10.2); Carbon Dioxide 26 mmol/L (22-32); Chloride 106 mmol/L (98-107); Cholesterol 116 mg/dL (140-199); Estimated Glomerular Filt Rate > 60.0 mL/min (>60); Glucose 112 mg/dL (80-110); HDL Cholesterol 45 mg/dL (40-60); HEMOLYSIS < 15 (0-50); Hemoglobin A1C% w Est Avg Glu 5.3 % (4.0-6.0); LDL Cholesterol Calculated 56 mg/dL (<100); Sodium 141 mmol/L (137-145); Triglycerides 73 mg/dL (35-150)
== END ==
PROVIDERS: Family Provider Internal Medicine Cardiovascular Disease; PCP Internal Medicine; Visit Provider Internal Medicine
DX: E11.65 Type 2 diabetes mellitus with hyperglycemia (principal)
CPT/HCPCS: 36415; 80048; 80061; 83036

== ENCOUNTER 2019-09-11 14:30 | Outpatient (RCR) | payer BC, SELFPAY ==
[2019-03-16 11:13] VITALS: BMI 29.8
--- NOTE | 2019-06-10 16:01 | PT.OIE ---
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 (Rec: 06/09/19 16:04 [facility] [id number]) Out-Patient Physical Therapy Visit Information Visit Information Visit Type Initial Evaluation Visit Start Time 15:20 Visit Stop Time 16:00 Total Visit Minutes 40 Visit Number 1 Number of PORTFOLIO STRATEGIST Visits 0 PT-OP-B Current Condition Start: 06/03/19 17:42 Freq: Status: Active Protocol: Document 06/09/19 15:23 [facility] (Rec: 06/09/19 16:04 [facility] [id number]) Current Condition History of Current Condition Onset Date March 16 History of Current Condition Pt reports suffering CVA with affect of R side with reports of being almost paralyzed. He returned home mid March and has been doing HH PT, OT, & ROLL SHOP SUPERVISOR and RN visits until 1.5 weeks ago. Pt reports he is going to just do PT. Pt reports he has improved with RUE function. except with shoulder elevation. Pt reports history of dislocation of R shoulder a few years ago, which he thinks is part of this. Pt reports he can swallow normally & speak and understand and no issues with memory. Pt reports his main complaint is his stamina is very poor. Pt reports he feels like his balance has gotten quite a bit better. Pt reports he has been climbign a grassy knoll outside his house. Pt reports last fall was 4 weeks ago when he was working in the garden and he took a big step to side and had to let himself to ground d/t leg not being able to hold him. Reports fall on 2nd day he came home when he bent down to pick something from floor when holding onto toilet lid and toilet lid broke. THese are the only 2 falls since stroke. Pt reports he has been using a walking stick when he is outside of the house, which is new since the stroke. Pt reports prior to stroke he did a lot of hiking, and biking. Reports he rides a stationary bike at home and walks on the treadmill about 15 min/.5 miles but has to do it every other day or so d/t long recouperation. Reports speed is much slower Treatment Goals Patient/Caregiver Goals Pt wants to return to riding his bike; recover stamina so he can exercise a little more; play golf, return to gardening & yard work fully; be able to descend stairs reciprocally without rail without balance PT-OP-M Strength Start: 06/03/19 17:42 Freq: Status: Active Protocol: Document 06/09/19 15:23 [facility] (Rec: 06/09/19 16:04 [facility] [id number]) Hip Strength Hip Manual Muscle Testing Left Flexion (L2) 5 Normal Extension (S1) 4+ Good+ Abduction 4+ Good+ Adduction 4 Good External Rotation 4+ Good+ Internal Rotation 5 Normal Right Flexion (L2) 4 Good Extension (S1) 4- Good- Abduction 3+ Fair+ Adduction 4- Good- External Rotation 3+ Fair+ Internal Rotation 5 Normal Knee Strength Knee Manual Muscle Testing Left Flexion (S2) 5 Normal Extension (L3) 5 Normal Right Flexion (S2) 4+ Good+ Extension (L3) 4 Good Ankle/Foot Strength Ankle and Foot Manual Muscle Testing Left Dorsiflexion (L4) 5 Normal Plantarflexion (S1) 5 Normal Inversion 5 Normal Eversion (S1) 5 Normal Right Dorsiflexion (L4) 4 Good Plantarflexion (S1) 3+ Fair+ Inversion 4 Good Eversion (S1) 4- Good- Comments PF tested standing PT-OP-T Assessment and Plan Start: 06/03/19 17:42 Freq: Status: Active Protocol: Document 06/09/19 15:23 [facility] (Rec: 06/09/19 16:04 [facility] [id number]) Physical Therapy Assessment Rehab Potential Rehabilitation Potential Good Evaluation Complexity Number of Personal Factors/Comorbidities 3 or More Number of Body Systems Impaired 4 or More Clinical Presentation at Evaluation Evolving Impairments Impairments Activity Tolerance,Balance, Functional Activities, Functional Mobility,Gait, Posture,ROM,Soft Tissue Mobility,Strength Goals strength Short Term Goal (STG) Pt will be indep with HEP. STG Duration 07/29/19 Fdc Goal (LTG) Pt will have at least 4+/5 LE strength B in order to allow him to return to his typical activities. LTG Duration 09/08/19 functional activity Short Term Goal (STG) Pt will be able to ascend and descend stairs reciprocallyw ithout rails safely. STG Duration 07/29/19 Agile Qa Tester Goal (LTG) Pt will be able to return to riding his bike safely. LTG Duration 09/08/19 activity Short Term Goal (STG) Pt will be able to return to golfing STG Duration 07/29/19 Agile Qa Tester Goal (LTG) Pt will be able to fully return to participating in yard word and gardening. LTG Duration 09/08/19 balance Impairment DGI 18, FGA 16 Short Term Goal (STG) Pt will improved DGI score to 20/30 to dec risk for falls STG Duration 07/29/19 Fdc Goal (LTG) Pt will improve score of FGA to 23/30 or greater to dec risk for falls LTG Duration 09/08/19 Assessment Summary Assessment Pt suffered a CVA March 16, 2019 with R sided weakness as a result. He symptoms have improved signifcantly with acute rehab and PT, OT & ROLL SHOP SUPERVISOR, but does still have some dec balance, and dec functional activity tolerance with c/o overall dec stamina. He is motivated to get better and scored to be at risk for falls with 2 balance/gait tests and would benefit from skilled PT in order to improve balance & dec risk for falls, improve LE strength, improve activity tolerance and ability to return to prior activities . Physical Therapy Plan Frequency and Duration Frequency of Treatment 2x/Week Duration of Treatment 3 months Plan of Care Start Date 06/09/19 Plan of Care End Date 09/08/19 Therapeutic Interventions Therapeutic Interventions Aquatic Therapy,Balance Training,Gait Training,Home Exercise Program,Joint Mobilizations,Manual Therapy, Neuromuscular Re-education, Patient/Caregiver Education, Self-Care/Home Management,Soft Tissue Mobilization,Taping, Therapeutic Activities, Therapeutic Exercises Modalities Cold Pack/Ice Massage,Electric Stimulation,Hot Packs Next Visit Focus/Plan Next Note Type Treatment Note Next Visit Plan Shoulder HEP, assess HH given HEP & form, work on balance on uneven surfaces, hurdles
--- NOTE | 2019-06-11 16:04 | PT.OTN ---
Current Diagnoses Cerebral infarction, unspecified (06/11/19) Physical Therapy Treatment Note PT-OP-A Visit Information Start: 06/03/19 17:42 Freq: Status: Active Protocol: Document 06/11/19 15:16 [facility] (Rec: 06/11/19 16:03 [facility] [id number]) Out-Patient Physical Therapy Visit Information Visit Information Visit Type Treatment Note Visit Start Time 15:17 Visit Stop Time 16:00 Total Visit Minutes 43 Visit Number 2 PT-OP-B Current Condition Start: 06/03/19 17:42 Freq: Status: Active Protocol: Document 06/09/19 15:23 [facility] (Rec: 06/09/19 16:04 [facility] [id number]) Current Condition History of Current Condition Onset Date March 16 History of Current Condition Pt reports suffering CVA with affect of R side with reports of being almost paralyzed. He returned home mid March and has been doing HH PT, OT, & MACHINIST CLASS B and RN visits until 1.5 weeks ago. Pt reports he is going to just do PT. Pt reports he has improved with RUE function. except with shoulder elevation. Pt reports history of dislocation of R shoulder a few years ago, which he thinks is part of this. Pt reports he can swallow normally & speak and understand and no issues with memory. Pt reports his main complaint is his stamina is very poor. Pt reports he feels like his balance has gotten quite a bit better. Pt reports he has been climbign a grassy knoll outside his house. Pt reports last fall was 4 weeks ago when he was working in the garden and he took a big step to side and had to let himself to ground d/t leg not being able to hold him. Reports fall on 2nd day he came home when he bent down to pick something from floor when holding onto toilet lid and toilet lid broke. THese are the only 2 falls since stroke. Pt reports he has been using a walking stick when he is outside of the house, which is new since the stroke. Pt reports prior to stroke he did a lot of hiking, and biking. Reports he rides a stationary bike at home and walks on the treadmill about 15 min/.5 miles but has to do it every other day or so d/t long recouperation. Reports speed is much slower Treatment Goals Patient/Caregiver Goals Pt wants to return to riding his bike; recover stamina so he can exercise a little more; play golf, return to gardening & yard work fully; be able to descend stairs reciprocally without rail without balance PT-OP-C Subjective Start: 06/03/19 17:42 Freq: Status: Active Protocol: Document 06/11/19 15:16 [facility] (Rec: 06/11/19 16:03 [facility] [id number]) OP-PT Subjective Patient Comments Patient Comments Reports he feels like the exercises he does are pretty easy when doing them. PT-OP-E Functional Tests Start: 06/03/19 17:42 Freq: Status: Active Protocol: Document 06/09/19 15:23 [facility] (Rec: 06/11/19 14:47 [facility] [id number]) Functional Tests 6 Minute Walk Test Distance 993 ft Device Used none Dynamic Gait Index (DGI) Score 18 DGI Impairment Rating 20 to <40% Impaired (Score 15- 19) Functional Gait Assessment Score 16 Functional Gait Assessment Impairment 40 to <60% Impaired (Score 13- Rating 18) PT-OP-G Mobility & Gait Start: 06/03/19 17:42 Freq: Status: Active Protocol: Document 06/09/19 15:23 [facility] (Rec: 06/11/19 14:47 [facility] [id number]) OP Mobility Evaluation Bed Mobility Supine to and from Sit Inc difficulty with getting up /down PT-OP-M Strength Start: 06/03/19 17:42 Freq: Status: Active Protocol: Document 06/09/19 15:23 [facility] (Rec: 06/09/19 16:04 [facility] [id number]) Hip Strength Hip Manual Muscle Testing Left Flexion (L2) 5 Normal Extension (S1) 4+ Good+ Abduction 4+ Good+ Adduction 4 Good External Rotation 4+ Good+ Internal Rotation 5 Normal Right Flexion (L2) 4 Good Extension (S1) 4- Good- Abduction 3+ Fair+ Adduction 4- Good- External Rotation 3+ Fair+ Internal Rotation 5 Normal Knee Strength Knee Manual Muscle Testing Left Flexion (S2) 5 Normal Extension (L3) 5 Normal Right Flexion (S2) 4+ Good+ Extension (L3) 4 Good Ankle/Foot Strength Ankle and Foot Manual Muscle Testing Left Dorsiflexion (L4) 5 Normal Plantarflexion (S1) 5 Normal Inversion 5 Normal Eversion (S1) 5 Normal Right Dorsiflexion (L4) 4 Good Plantarflexion (S1) 3+ Fair+ Inversion 4 Good Eversion (S1) 4- Good- Comments PF tested standing PT-OP-Q Treatments Start: 06/03/19 17:42 Freq: Status: Active Protocol: Document 06/11/19 15:16 [facility] (Rec: 06/11/19 16:03 [facility] [id number]) Gym Equipment Shuttle Balance blue clips Details fwd & side: WBOS, NBOS, staggered stance B Therapeutic Exercises Supine Exercises bridge Supine Exercise Name tried with marching & also with arms in air Sidelying Exercises clamshells Side right Reps/Minutes 10 Standing Exercises fwd/back Standing Exercise Name walk Side bilateral Equipment Used yellow tband Reps/Minutes 2x20ft side steps Side bilateral Equipment Used yellow tband Reps/Minutes 2x20ft hip ext Side bilateral Equipment Used L1 Reps/Minutes 10 hip abd Side bilateral Reps/Minutes 8 lunges Side bilateral Equipment Used L1 Reps/Minutes 10 march Side bilateral Reps/Minutes 8 HS curl Side bilateral Equipment Used L1 Reps/Minutes 8 squat Standing Exercise Name over chair with counter Side bilateral Reps/Minutes 10 Neuro Re-Education Treatment Balance Activities bosu Details step ups with balancing 4-5 sec Reps/Duration 10 ea Self-Care/Home Management Treatment Education Other Education review of HEP PT-OP-T Assessment and Plan Start: 06/03/19 17:42 Freq: Status: Active Protocol: Document 06/11/19 15:16 [facility] (Rec: 06/11/19 16:03 [facility] [id number]) Physical Therapy Assessment Goals strength Short Term Goal (STG) Pt will be indep with HEP. STG Duration 07/29/19 Licensing And Registration Director Goal (LTG) Pt will have at least 4+/5 LE strength B in order to allow him to return to his typical activities. LTG Duration 09/08/19 functional activity Short Term Goal (STG) Pt will be able to ascend and descend stairs reciprocallyw ithout rails safely. STG Duration 07/29/19 Correction Goal (LTG) Pt will be able to return to riding his bike safely. LTG Duration 09/08/19 activity Short Term Goal (STG) Pt will be able to return to golfing STG Duration 07/29/19 Licensing And Registration Director Goal (LTG) Pt will be able to fully return to participating in [employer] word and gardening. LTG Duration 09/08/19 balance Impairment DGI 18, FGA 16 Short Term Goal (STG) Pt will improved DGI score to 20/30 to dec risk for falls STG Duration 07/29/19 Licensing And Registration Director Goal (LTG) Pt will improve score of FGA to 23/30 or greater to dec risk for falls LTG Duration 09/08/19 Assessment Summary Assessment Pt did well with balance exercises, but he was signficantly challenged and slowly gained control. Pt's home exercises were progressed to added resistance. Physical Therapy Plan Frequency and Duration Frequency of Treatment 2x/Week Duration of Treatment 3 months Plan of Care Start Date 06/09/19 Plan of Care End Date 09/08/19 Next Visit Focus/Plan Next Note Type Treatment Note Next Visit Plan cont too work balance & stair decent; do seated stepper, rowing machine & try squats with rows to work arms and legs at same time
--- NOTE | 2019-06-16 14:30 | PT.OTN ---
Current Diagnoses Cerebral infarction, unspecified (06/16/19) Physical Therapy Treatment Note PT-OP-A Visit Information Start: 06/03/19 17:42 Freq: Status: Active Protocol: Document 06/16/19 13:45 [facility] (Rec: 06/16/19 14:30 [facility] [id number]) Out-Patient Physical Therapy Visit Information Visit Information Visit Type Treatment Note Visit Start Time 13:45 Visit Stop Time 14:30 Total Visit Minutes 45 Visit Number 3 Evaluation Information Evaluation Date 06/09/19 PT-OP-B Current Condition Start: 06/03/19 17:42 Freq: Status: Active Protocol: Document 06/09/19 15:23 [facility] (Rec: 06/09/19 16:04 [facility] [id number]) Current Condition History of Current Condition Onset Date March 16 History of Current Condition Pt reports suffering CVA with affect of R side with reports of being almost paralyzed. He returned home mid March and has been doing HH PT, OT, & ARMORED CAR GUARD AND DRIVER and RN visits until 1.5 weeks ago. Pt reports he is going to just do PT. Pt reports he has improved with RUE function. except with shoulder elevation. Pt reports history of dislocation of R shoulder a few years ago, which he thinks is part of this. Pt reports he can swallow normally & speak and understand and no issues with memory. Pt reports his main complaint is his stamina is very poor. Pt reports he feels like his balance has gotten quite a bit better. Pt reports he has been climbign a grassy knoll outside his house. Pt reports last fall was 4 weeks ago when he was working in the garden and he took a big step to side and had to let himself to ground d/t leg not being able to hold him. Reports fall on 2nd day he came home when he bent down to pick something from floor when holding onto toilet lid and toilet lid broke. THese are the only 2 falls since stroke. Pt reports he has been using a walking stick when he is outside of the house, which is new since the stroke. Pt reports prior to stroke he did a lot of hiking, and biking. Reports he rides a stationary bike at home and walks on the treadmill about 15 min/.5 miles but has to do it every other day or so d/t long recouperation. Reports speed is much slower Treatment Goals Patient/Caregiver Goals Pt wants to return to riding his bike; recover stamina so he can exercise a little more; play golf, return to gardening & yard work fully; be able to descend stairs reciprocally without rail without balance PT-OP-C Subjective Start: 06/03/19 17:42 Freq: Status: Active Protocol: Document 06/16/19 13:45 [facility] (Rec: 06/16/19 14:30 [facility] [id number]) OP-PT Subjective Patient Comments Patient Comments Fatigue is still a big problem for me. PT-OP-E Functional Tests Start: 06/03/19 17:42 Freq: Status: Active Protocol: Document 06/09/19 15:23 [facility] (Rec: 06/11/19 14:47 [facility] [id number]) Functional Tests 6 Minute Walk Test Distance 993 ft Device Used none Dynamic Gait Index (DGI) Score 18 DGI Impairment Rating 20 to <40% Impaired (Score 15- 19) Functional Gait Assessment Score 16 Functional Gait Assessment Impairment 40 to <60% Impaired (Score 13- Rating 18) PT-OP-G Mobility & Gait Start: 06/03/19 17:42 Freq: Status: Active Protocol: Document 06/09/19 15:23 [facility] (Rec: 06/11/19 14:47 [facility] [id number]) OP Mobility Evaluation Bed Mobility Supine to and from Sit Inc difficulty with getting up /down PT-OP-M Strength Start: 06/03/19 17:42 Freq: Status: Active Protocol: Document 06/09/19 15:23 [facility] (Rec: 06/09/19 16:04 [facility] [id number]) Hip Strength Hip Manual Muscle Testing Left Flexion (L2) 5 Normal Extension (S1) 4+ Good+ Abduction 4+ Good+ Adduction 4 Good External Rotation 4+ Good+ Internal Rotation 5 Normal Right Flexion (L2) 4 Good Extension (S1) 4- Good- Abduction 3+ Fair+ Adduction 4- Good- External Rotation 3+ Fair+ Internal Rotation 5 Normal Knee Strength Knee Manual Muscle Testing Left Flexion (S2) 5 Normal Extension (L3) 5 Normal Right Flexion (S2) 4+ Good+ Extension (L3) 4 Good Ankle/Foot Strength Ankle and Foot Manual Muscle Testing Left Dorsiflexion (L4) 5 Normal Plantarflexion (S1) 5 Normal Inversion 5 Normal Eversion (S1) 5 Normal Right Dorsiflexion (L4) 4 Good Plantarflexion (S1) 3+ Fair+ Inversion 4 Good Eversion (S1) 4- Good- Comments PF tested standing PT-OP-Q Treatments Start: 06/03/19 17:42 Freq: Status: Active Protocol: Document 06/16/19 13:45 [facility] (Rec: 06/16/19 14:30 [facility] [id number]) Gym Equipment Shuttle Balance blue clips Details fwd & side: WBOS, NBOS, staggered stance B Sport Cord Blue Exercise Details Lateral, Fwd, Bkwd Cord/Resistance Blue Therapeutic Exercises Standing Exercises Calf Stretch Standing Exercise Name Heel cord stretch Side bilateral Equipment Used BALAJI fwd/back Standing Exercise Name walk Side bilateral Equipment Used yellow tband Reps/Minutes 2x20ft side steps Side bilateral Equipment Used yellow tband Reps/Minutes 2x20ft hip ext Side bilateral Equipment Used L1 Reps/Minutes 10 Neuro Re-Education Treatment Balance Activities Foam Stance Details Eyes closed, Horizontal/ Vertical Head turns Surface Russ foam SLS Details SLS Foam/Hurdles Details Foam/Hurdles bosu Details step ups with balancing 4-5 sec Reps/Duration 10 ea PT-OP-T Assessment and Plan Start: 06/03/19 17:42 Freq: Status: Active Protocol: Document 06/16/19 13:45 [facility] (Rec: 06/16/19 14:30 [facility] [id number]) Physical Therapy Assessment Impairments Impairments Activity Tolerance,Balance, Functional Activities, Functional Mobility,Gait, Posture,ROM,Soft Tissue Mobility,Strength Goals strength Short Term Goal (STG) Pt will be indep with HEP. STG Duration 07/29/19 Mcfp Goal (LTG) Pt will have at least 4+/5 LE strength B in order to allow him to return to his typical activities. LTG Duration 09/08/19 functional activity Short Term Goal (STG) Pt will be able to ascend and descend stairs reciprocallyw ithout rails safely. STG Duration 07/29/19 Insurance Marketing Rep Goal (LTG) Pt will be able to return to riding his bike safely. LTG Duration 09/08/19 activity Short Term Goal (STG) Pt will be able to return to golfing STG Duration 07/29/19 Mcfp Goal (LTG) Pt will be able to fully return to participating in [employer] word and gardening. LTG Duration 09/08/19 balance Impairment DGI 18, FGA 16 Short Term Goal (STG) Pt will improved DGI score to 20/30 to dec risk for falls STG Duration 07/29/19 Insurance Marketing Rep Goal (LTG) Pt will improve score of FGA to 23/30 or greater to dec risk for falls LTG Duration 09/08/19 Assessment Summary Assessment Pt clearly fatigued during exercise, however he was able to continue on with his exercises without a rest break . Pt very motivated to continue to work toward improvement. Physical Therapy Plan Frequency and Duration Frequency of Treatment 2x/Week Duration of Treatment 3 months Plan of Care Start Date 06/09/19 Plan of Care End Date 09/08/19 Next Visit Focus/Plan Next Note Type Treatment Note Next Visit Plan cont to work balance & stair decent; do seated stepper, rowing machine & try squats with rows to work arms and legs at same time
--- NOTE | 2019-06-18 15:15 | PT.OTN ---
Current Diagnoses Cerebral infarction, unspecified (06/18/19) Physical Therapy Treatment Note PT-OP-A Visit Information Start: 06/03/19 17:42 Freq: Status: Active Protocol: Document 06/18/19 14:35 [facility] (Rec: 06/18/19 15:15 [facility] [id number]) Out-Patient Physical Therapy Visit Information Visit Information Visit Type Treatment Note Visit Start Time 14:33 Visit Stop Time 15:12 Total Visit Minutes 39 Visit Number 4 PT-OP-B Current Condition Start: 06/03/19 17:42 Freq: Status: Active Protocol: Document 06/09/19 15:23 [facility] (Rec: 06/09/19 16:04 [facility] [id number]) Current Condition History of Current Condition Onset Date March 16 History of Current Condition Pt reports suffering CVA with affect of R side with reports of being almost paralyzed. 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 Pt reports he is going to just do PT. Pt reports he has improved with RUE function. except with shoulder elevation. Pt reports history of dislocation of R shoulder a few years ago, which he thinks is part of this. Pt reports he can swallow normally & speak and understand and no issues with memory. Pt reports his main complaint is his stamina is very poor. Pt reports he feels like his balance has gotten quite a bit better. Pt reports he has been climbign a grassy knoll outside his house. Pt reports last fall was 4 weeks ago when he was working in the garden and he took a big step to side and had to let himself to ground d/t leg not being able to hold him. Reports fall on 2nd day he came home when he bent down to pick something from floor when holding onto toilet lid and toilet lid broke. THese are the only 2 falls since stroke. Pt reports he has been using a walking stick when he is outside of the house, which is new since the stroke. Pt reports prior to stroke he did a lot of hiking, and biking. Reports he rides a stationary bike at home and walks on the treadmill about 15 min/.5 miles but has to do it every other day or so d/t long recouperation. Reports speed is much slower Treatment Goals Patient/Caregiver Goals Pt wants to return to riding his bike; recover stamina so he can exercise a little more; play golf, return to gardening & yard work fully; be able to descend stairs reciprocally without rail without balance PT-OP-C Subjective Start: 06/03/19 17:42 Freq: Status: Active Protocol: Document 06/18/19 14:35 [facility] (Rec: 06/18/19 15:15 [facility] [id number]) OP-PT Subjective Patient Comments Patient Comments Pt reports he woke up with a cramp last night in his R HS and it is still bothering him. PT-OP-E Functional Tests Start: 06/03/19 17:42 Freq: Status: Active Protocol: Document 06/09/19 15:23 [facility] (Rec: 06/11/19 14:47 [facility] [id number]) Functional Tests 6 Minute Walk Test Distance 993 ft Device Used none Dynamic Gait Index (DGI) Score 18 DGI Impairment Rating 20 to <40% Impaired (Score 15- 19) Functional Gait Assessment Score 16 Functional Gait Assessment Impairment 40 to <60% Impaired (Score 13- Rating 18) PT-OP-G Mobility & Gait Start: 06/03/19 17:42 Freq: Status: Active Protocol: Document 06/09/19 15:23 [facility] (Rec: 06/11/19 14:47 [facility] [id number]) OP Mobility Evaluation Bed Mobility Supine to and from Sit Inc difficulty with getting up /down PT-OP-M Strength Start: 06/03/19 17:42 Freq: Status: Active Protocol: Document 06/09/19 15:23 [facility] (Rec: 06/09/19 16:04 [facility] [id number]) Hip Strength Hip Manual Muscle Testing Left Flexion (L2) 5 Normal Extension (S1) 4+ Good+ Abduction 4+ Good+ Adduction 4 Good External Rotation 4+ Good+ Internal Rotation 5 Normal Right Flexion (L2) 4 Good Extension (S1) 4- Good- Abduction 3+ Fair+ Adduction 4- Good- External Rotation 3+ Fair+ Internal Rotation 5 Normal Knee Strength Knee Manual Muscle Testing Left Flexion (S2) 5 Normal Extension (L3) 5 Normal Right Flexion (S2) 4+ Good+ Extension (L3) 4 Good Ankle/Foot Strength Ankle and Foot Manual Muscle Testing Left Dorsiflexion (L4) 5 Normal Plantarflexion (S1) 5 Normal Inversion 5 Normal Eversion (S1) 5 Normal Right Dorsiflexion (L4) 4 Good Plantarflexion (S1) 3+ Fair+ Inversion 4 Good Eversion (S1) 4- Good- Comments PF tested standing PT-OP-Q Treatments Start: 06/03/19 17:42 Freq: Status: Active Protocol: Document 06/18/19 14:35 [facility] (Rec: 06/18/19 15:15 [facility] [id number]) Cardio Equipment Recumbent Stepper (Sci-Fit) Duration (Minutes) 6 Resistance 3 Seat Position 14 Gym Equipment Cable Column (Body Solid) Rows Details squat & row Resistance 2 Reps/Time 10x2 Shuttle Balance blue clips Details fwd & side: WBOS, NBOS, staggered stance B Comments while hitting balloon Therapeutic Ball seated Exercise Details marches & kicks Ball Size/Color silver Body Position seated Reps/Duration 15 ea B Therapeutic Exercises Standing Exercises stretch Standing Exercise Name HS stretch on stair Side right Reps/Minutes 45 sec x2 Calf Stretch Standing Exercise Name Heel cord stretch Side bilateral Equipment Used BALAJI Reps/Minutes 45 sec fwd/back Standing Exercise Name walk Side bilateral Equipment Used yellow tband Reps/Minutes 2x20ft side steps Side bilateral Equipment Used yellow tband Reps/Minutes 2x20ft Neuro Re-Education Treatment Balance Activities bosu Details step ups & balancing 1 min Reps/Duration 5 ea PT-OP-T Assessment and Plan Start: 06/03/19 17:42 Freq: Status: Active Protocol: Document 06/18/19 14:35 [facility] (Rec: 06/18/19 15:15 [facility] [id number]) Physical Therapy Assessment Goals strength Short Term Goal (STG) Pt will be indep with HEP. STG Duration 07/29/19 Senior Living Goal (LTG) Pt will have at least 4+/5 LE strength B in order to allow him to return to his typical activities. LTG Duration 09/08/19 functional activity Short Term Goal (STG) Pt will be able to ascend and descend stairs reciprocallyw ithout rails safely. STG Duration 07/29/19 Senior Living Goal (LTG) Pt will be able to return to riding his bike safely. LTG Duration 09/08/19 activity Short Term Goal (STG) Pt will be able to return to golfing STG Duration 07/29/19 Horticultural Nursery Assistant Goal (LTG) Pt will be able to fully return to participating in yard word and gardening. LTG Duration 09/08/19 balance Impairment DGI 18, FGA 16 Short Term Goal (STG) Pt will improved DGI score to 20/30 to dec risk for falls STG Duration 07/29/19 Horticultural Nursery Assistant Goal (LTG) Pt will improve score of FGA to 23/30 or greater to dec risk for falls LTG Duration 09/08/19 Assessment Summary Assessment Pt was able to partiicape in all exercises and was educated on on stretching at home. He did better with sidesteps today with improved form throughout full exercises. He was able to do blue clips today with hitting a balloon Physical Therapy Plan Frequency and Duration Frequency of Treatment 2x/Week Duration of Treatment 3 months Plan of Care Start Date 06/09/19 Plan of Care End Date 09/08/19 Next Visit Focus/Plan Next Note Type Treatment Note Next Visit Plan cont to work balance & stair decent
--- NOTE | 2019-06-24 15:01 | PT.OTN ---
Current Diagnoses Cerebral infarction, unspecified (06/24/19) Physical Therapy Treatment Note PT-OP-A Visit Information Start: 06/03/19 17:42 Freq: Status: Active Protocol: Document 06/24/19 13:46 [facility] (Rec: 06/24/19 15:01 [facility] [id number]) Out-Patient Physical Therapy Visit Information Visit Information Visit Type Treatment Note Visit Start Time 13:45 Visit Stop Time 14:26 Total Visit Minutes 41 Visit Number 5 PT-OP-B Current Condition Start: 06/03/19 17:42 Freq: Status: Active Protocol: Document 06/09/19 15:23 [facility] (Rec: 06/09/19 16:04 [facility] [id number]) Current Condition History of Current Condition Onset Date March 16 History of Current Condition Pt reports suffering CVA with affect of R side with reports of being almost paralyzed. 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 Pt reports he is going to just do PT. Pt reports he has improved with RUE function. except with shoulder elevation. Pt reports history of dislocation of R shoulder a few years ago, which he thinks is part of this. Pt reports he can swallow normally & speak and understand and no issues with memory. Pt reports his main complaint is his stamina is very poor. Pt reports he feels like his balance has gotten quite a bit better. Pt reports he has been climbign a grassy knoll outside his house. Pt reports last fall was 4 weeks ago when he was working in the garden and he took a big step to side and had to let himself to ground d/t leg not being able to hold him. Reports fall on 2nd day he came home when he bent down to pick something from floor when holding onto toilet lid and toilet lid broke. THese are the only 2 falls since stroke. Pt reports he has been using a walking stick when he is outside of the house, which is new since the stroke. Pt reports prior to stroke he did a lot of hiking, and biking. Reports he rides a stationary bike at home and walks on the treadmill about 15 min/.5 miles but has to do it every other day or so d/t long recouperation. Reports speed is much slower Treatment Goals Patient/Caregiver Goals Pt wants to return to riding his bike; recover stamina so he can exercise a little more; play golf, return to gardening & yard work fully; be able to descend stairs reciprocally without rail without balance PT-OP-C Subjective Start: 06/03/19 17:42 Freq: Status: Active Protocol: Document 06/24/19 13:46 [facility] (Rec: 06/24/19 15:01 [facility] [id number]) OP-PT Subjective Patient Comments Patient Comments Pt reprots he has inc time on his exercise cycle and treadmill. He feels like his R leg is getting stronger. Patient Reported Progress Improving PT-OP-E Functional Tests Start: 06/03/19 17:42 Freq: Status: Active Protocol: Document 06/09/19 15:23 [facility] (Rec: 06/11/19 14:47 [facility] [id number]) Functional Tests 6 Minute Walk Test Distance 993 ft Device Used none Dynamic Gait Index (DGI) Score 18 DGI Impairment Rating 20 to <40% Impaired (Score 15- 19) Functional Gait Assessment Score 16 Functional Gait Assessment Impairment 40 to <60% Impaired (Score 13- Rating 18) PT-OP-G Mobility & Gait Start: 06/03/19 17:42 Freq: Status: Active Protocol: Document 06/09/19 15:23 [facility] (Rec: 06/11/19 14:47 [facility] [id number]) OP Mobility Evaluation Bed Mobility Supine to and from Sit Inc difficulty with getting up /down PT-OP-M Strength Start: 06/03/19 17:42 Freq: Status: Active Protocol: Document 06/09/19 15:23 [facility] (Rec: 06/09/19 16:04 [facility] [id number]) Hip Strength Hip Manual Muscle Testing Left Flexion (L2) 5 Normal Extension (S1) 4+ Good+ Abduction 4+ Good+ Adduction 4 Good External Rotation 4+ Good+ Internal Rotation 5 Normal Right Flexion (L2) 4 Good Extension (S1) 4- Good- Abduction 3+ Fair+ Adduction 4- Good- External Rotation 3+ Fair+ Internal Rotation 5 Normal Knee Strength Knee Manual Muscle Testing Left Flexion (S2) 5 Normal Extension (L3) 5 Normal Right Flexion (S2) 4+ Good+ Extension (L3) 4 Good Ankle/Foot Strength Ankle and Foot Manual Muscle Testing Left Dorsiflexion (L4) 5 Normal Plantarflexion (S1) 5 Normal Inversion 5 Normal Eversion (S1) 5 Normal Right Dorsiflexion (L4) 4 Good Plantarflexion (S1) 3+ Fair+ Inversion 4 Good Eversion (S1) 4- Good- Comments PF tested standing PT-OP-Q Treatments Start: 06/03/19 17:42 Freq: Status: Active Protocol: Document 06/24/19 13:46 [facility] (Rec: 06/24/19 15:01 [facility] [id number]) Cardio Equipment Recumbent Stepper (Sci-Fit) Duration (Minutes) 6 Resistance 5 Seat Position 14 Gym Equipment Cable Column (Body Solid) Lat Pull Down Resistance 3 Reps/Time 2x15 Rows Details squat & row Resistance 2 Reps/Time 10x2 Shuttle Balance blue clips Details fwd & side: WBOS, NBOS, staggered stance B Comments while hitting balloon Therapeutic Ball seated Exercise Details marches & kicks Ball Size/Color silver Body Position seated Reps/Duration 15 ea B Gait Training Gait Activity stairs Description 23 reciprocally up & down Comments 1x with limited rail support 2x w/o rails & w/ walking stick step down Description 4 in then 5 in step Distance/Duration 10 ea PT-OP-T Assessment and Plan Start: 06/03/19 17:42 Freq: Status: Active Protocol: Document 06/24/19 13:46 [facility] (Rec: 06/24/19 15:01 [facility] [id number]) Physical Therapy Assessment Goals strength Short Term Goal (STG) Pt will be indep with HEP. STG Duration 07/29/19 Therapy Technician Goal (LTG) Pt will have at least 4+/5 LE strength B in order to allow him to return to his typical activities. LTG Duration 09/08/19 functional activity Short Term Goal (STG) Pt will be able to ascend and descend stairs reciprocallyw ithout rails safely. STG Duration 07/29/19 Therapy Technician Goal (LTG) Pt will be able to return to riding his bike safely. LTG Duration 09/08/19 activity Short Term Goal (STG) Pt will be able to return to golfing STG Duration 07/29/19 Senior Living Goal (LTG) Pt will be able to fully return to participating in yard word and gardening. LTG Duration 09/08/19 balance Impairment DGI 18, FGA 16 Short Term Goal (STG) Pt will improved DGI score to 20/30 to dec risk for falls STG Duration 07/29/19 Therapy Technician Goal (LTG) Pt will improve score of FGA to 23/30 or greater to dec risk for falls LTG Duration 09/08/19 Assessment Summary Assessment Pt did very well with blue clips today with large reaches out of [place]. He did well with repeated reverse step ups with step downs but had difficulty with reciprocal motion. Instructed if he goes to games where he has to do stairs to do step to with his walking stick. Physical Therapy Plan Frequency and Duration Frequency of Treatment 2x/Week Duration of Treatment 3 months Plan of Care Start Date 06/09/19 Plan of Care End Date 09/08/19 Next Visit Focus/Plan Next Note Type Treatment Note Next Visit Plan cont to progress balance and LE strength
--- NOTE | 2019-06-26 14:30 | PT.OTN ---
Current Diagnoses Cerebral infarction, unspecified (06/26/19) Physical Therapy Treatment Note PT-OP-A Visit Information Start: 06/03/19 17:42 Freq: Status: Active Protocol: Document 06/26/19 13:52 [facility] (Rec: 06/26/19 14:30 [facility] [id number]) Out-Patient Physical Therapy Visit Information Visit Information Visit Type Treatment Note Visit Start Time 13:46 Visit Stop Time 14:26 Total Visit Minutes 40 Visit Number 6 PT-OP-B Current Condition Start: 06/03/19 17:42 Freq: Status: Active Protocol: Document 06/09/19 15:23 [facility] (Rec: 06/09/19 16:04 [facility] [id number]) Current Condition History of Current Condition Onset Date March 16 History of Current Condition Pt reports suffering CVA with affect of R side with reports of being almost paralyzed. 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 Pt reports he is going to just do PT. Pt reports he has improved with RUE function. except with shoulder elevation. Pt reports history of dislocation of R shoulder a few years ago, which he thinks is part of this. Pt reports he can swallow normally & speak and understand and no issues with memory. Pt reports his main complaint is his stamina is very poor. Pt reports he feels like his balance has gotten quite a bit better. Pt reports he has been climbign a grassy knoll outside his house. Pt reports last fall was 4 weeks ago when he was working in the garden and he took a big step to side and had to let himself to ground d/t leg not being able to hold him. Reports fall on 2nd day he came home when he bent down to pick something from floor when holding onto toilet lid and toilet lid broke. THese are the only 2 falls since stroke. Pt reports he has been using a walking stick when he is outside of the house, which is new since the stroke. Pt reports prior to stroke he did a lot of hiking, and biking. Reports he rides a stationary bike at home and walks on the treadmill about 15 min/.5 miles but has to do it every other day or so d/t long recouperation. Reports speed is much slower Treatment Goals Patient/Caregiver Goals Pt wants to return to riding his bike; recover stamina so he can exercise a little more; play golf, return to gardening & yard work fully; be able to descend stairs reciprocally without rail without balance PT-OP-C Subjective Start: 06/03/19 17:42 Freq: Status: Active Protocol: Document 06/26/19 13:52 [facility] (Rec: 06/26/19 14:30 [facility] [id number]) OP-PT Subjective Patient Comments Patient Comments Pt reports he is doing well today PT-OP-E Functional Tests Start: 06/03/19 17:42 Freq: Status: Active Protocol: Document 06/09/19 15:23 [facility] (Rec: 06/11/19 14:47 [facility] [id number]) Functional Tests 6 Minute Walk Test Distance 993 ft Device Used none Dynamic Gait Index (DGI) Score 18 DGI Impairment Rating 20 to <40% Impaired (Score 15- 19) Functional Gait Assessment Score 16 Functional Gait Assessment Impairment 40 to <60% Impaired (Score 13- Rating 18) PT-OP-G Mobility & Gait Start: 06/03/19 17:42 Freq: Status: Active Protocol: Document 06/09/19 15:23 [facility] (Rec: 06/11/19 14:47 [facility] [id number]) OP Mobility Evaluation Bed Mobility Supine to and from Sit Inc difficulty with getting up /down PT-OP-M Strength Start: 06/03/19 17:42 Freq: Status: Active Protocol: Document 06/09/19 15:23 [facility] (Rec: 06/09/19 16:04 [facility] [id number]) Hip Strength Hip Manual Muscle Testing Left Flexion (L2) 5 Normal Extension (S1) 4+ Good+ Abduction 4+ Good+ Adduction 4 Good External Rotation 4+ Good+ Internal Rotation 5 Normal Right Flexion (L2) 4 Good Extension (S1) 4- Good- Abduction 3+ Fair+ Adduction 4- Good- External Rotation 3+ Fair+ Internal Rotation 5 Normal Knee Strength Knee Manual Muscle Testing Left Flexion (S2) 5 Normal Extension (L3) 5 Normal Right Flexion (S2) 4+ Good+ Extension (L3) 4 Good Ankle/Foot Strength Ankle and Foot Manual Muscle Testing Left Dorsiflexion (L4) 5 Normal Plantarflexion (S1) 5 Normal Inversion 5 Normal Eversion (S1) 5 Normal Right Dorsiflexion (L4) 4 Good Plantarflexion (S1) 3+ Fair+ Inversion 4 Good Eversion (S1) 4- Good- Comments PF tested standing PT-OP-Q Treatments Start: 06/03/19 17:42 Freq: Status: Active Protocol: Document 06/26/19 13:52 [facility] (Rec: 06/26/19 14:30 [facility] [id number]) Cardio Equipment Recumbent Stepper (Sci-Fit) Duration (Minutes) 6 Resistance 5 Seat Position 14 Gym Equipment Cable Column (Body Solid) Lat Pull Down Resistance 3 Reps/Time 2x15 Rows Details squat & row Resistance 2 Reps/Time 10x2 Shuttle Balance red clips Details fwd & side: WBOS & NBOS; fwd: staggered stance Therapeutic Ball bike Exercise Details w/portable ergometer Ball Size/Color silver Body Position seated Reps/Duration 4 min Gait Training Gait Activity stairs Description 26reciprocally up & down Distance/Duration 2x step down Description 8 in step up and over and down Distance/Duration 10 B Neuro Re-Education Treatment Balance Activities Foam/Hurdles Details tpads with hurdles Reps/Duration 8 PT-OP-T Assessment and Plan Start: 06/03/19 17:42 Freq: Status: Active Protocol: Document 06/26/19 13:52 [facility] (Rec: 06/26/19 14:30 [facility] [id number]) Physical Therapy Assessment Goals strength Short Term Goal (STG) Pt will be indep with HEP. STG Duration 07/29/19 Mcc Goal (LTG) Pt will have at least 4+/5 LE strength B in order to allow him to return to his typical activities. LTG Duration 09/08/19 functional activity Short Term Goal (STG) Pt will be able to ascend and descend stairs reciprocallyw ithout rails safely. STG Duration 07/29/19 Mcc Goal (LTG) Pt will be able to return to riding his bike safely. LTG Duration 09/08/19 activity Short Term Goal (STG) Pt will be able to return to golfing STG Duration 07/29/19 Picker Tender Goal (LTG) Pt will be able to fully return to participating in [employer] word and gardening. LTG Duration 09/08/19 balance Impairment DGI 18, FGA 16 Short Term Goal (STG) Pt will improved DGI score to 20/30 to dec risk for falls STG Duration 07/29/19 Picker Tender Goal (LTG) Pt will improve score of FGA to 23/30 or greater to dec risk for falls LTG Duration 09/08/19 Assessment Summary Assessment Pt was challenged by red clips balance today and with seated on tball while using cycle ergonometer. He is improving in actvitiy tolerance and only required 2 less than 30 sec rest breaks during session but did note some leg fatigue. Physical Therapy Plan Frequency and Duration Frequency of Treatment 2x/Week Duration of Treatment 3 months Plan of Care Start Date 06/09/19 Plan of Care End Date 09/08/19 Next Visit Focus/Plan Next Note Type Treatment Note Next Visit Plan cont to progress balance and LE strength
--- NOTE | 2019-07-01 15:25 | PT.OTN ---
Current Diagnoses Cerebral infarction, unspecified (07/01/19) Physical Therapy Treatment Note PT-OP-A Visit Information Start: 06/03/19 17:42 Freq: Status: Active Protocol: Document 07/01/19 14:25 MB (Rec: 07/01/19 15:15 MB [id number]) Out-Patient Physical Therapy Visit Information Visit Information Visit Type Treatment Note Visit Note PNF to assess and treat scapulohumeral and pelvic- lower extremity weakness, trouble co-sebastián this date. Visit Start Time 14:25 Visit Stop Time 15:10 Total Visit Minutes 45 Visit Number 7 PT-OP-B Current Condition Start: 06/03/19 17:42 Freq: Status: Active Protocol: Document 06/09/19 15:23 [facility] (Rec: 06/09/19 16:04 [facility] [id number]) Current Condition History of Current Condition Onset Date March 16 History of Current Condition Pt reports suffering CVA with affect of R side with reports of being almost paralyzed. He returned home mid March and has been doing HH PT, OT, & REPAIRER KILN CAR and RN visits until 1.5 weeks ago. Pt reports he is going to just do PT. Pt reports he has improved with RUE function. except with shoulder elevation. Pt reports history of dislocation of R shoulder a few years ago, which he thinks is part of this. Pt reports he can swallow normally & speak and understand and no issues with memory. Pt reports his main complaint is his stamina is very poor. Pt reports he feels like his balance has gotten quite a bit better. Pt reports he has been climbign a grassy knoll outside his house. Pt reports last fall was 4 weeks ago when he was working in the garden and he took a big step to side and had to let himself to ground d/t leg not being able to hold him. Reports fall on 2nd day he came home when he bent down to pick something from floor when holding onto toilet lid and toilet lid broke. THese are the only 2 falls since stroke. Pt reports he has been using a walking stick when he is outside of the house, which is new since the stroke. Pt reports prior to stroke he did a lot of hiking, and biking. Reports he rides a stationary bike at home and walks on the treadmill about 15 min/.5 miles but has to do it every other day or so d/t long recouperation. Reports speed is much slower Treatment Goals Patient/Caregiver Goals Pt wants to return to riding his bike; recover stamina so he can exercise a little more; play golf, return to gardening & yard work fully; be able to descend stairs reciprocally without rail without balance PT-OP-C Subjective Start: 06/03/19 17:42 Freq: Status: Active Protocol: Document 07/01/19 14:25 MB (Rec: 07/01/19 15:13 MB [id number]) OP-PT Subjective Patient Comments Patient Comments Pt states that his right shoulder was last thing to come back after stroke d/t previous injury. His goal is to go to [employer]. He is concerned about gaps between rails at steps. He thinks he has to do about 25-30 steps to get down to his seats. Patient Reported Progress Improving PT-OP-E Functional Tests Start: 06/03/19 17:42 Freq: Status: Active Protocol: Document 06/09/19 15:23 [facility] (Rec: 06/11/19 14:47 [facility] [id number]) Functional Tests 6 Minute Walk Test Distance 993 ft Device Used none Dynamic Gait Index (DGI) Score 18 DGI Impairment Rating 20 to <40% Impaired (Score 15- 19) Functional Gait Assessment Score 16 Functional Gait Assessment Impairment 40 to <60% Impaired (Score 13- Rating 18) PT-OP-G Mobility & Gait Start: 06/03/19 17:42 Freq: Status: Active Protocol: Document 06/09/19 15:23 [facility] (Rec: 06/11/19 14:47 [facility] [id number]) OP Mobility Evaluation Bed Mobility Supine to and from [employer] difficulty with getting up /down PT-OP-M Strength Start: 06/03/19 17:42 Freq: Status: Active Protocol: Document 06/09/19 15:23 [facility] (Rec: 06/09/19 16:04 [facility] [id number]) Hip Strength Hip Manual Muscle Testing Left Flexion (L2) 5 Normal Extension (S1) 4+ Good+ Abduction 4+ Good+ Adduction 4 Good External Rotation 4+ Good+ Internal Rotation 5 Normal Right Flexion (L2) 4 Good Extension (S1) 4- Good- Abduction 3+ Fair+ Adduction 4- Good- External Rotation 3+ Fair+ Internal Rotation 5 Normal Knee Strength Knee Manual Muscle Testing Left Flexion (S2) 5 Normal Extension (L3) 5 Normal Right Flexion (S2) 4+ Good+ Extension (L3) 4 Good Ankle/Foot Strength Ankle and Foot Manual Muscle Testing Left Dorsiflexion (L4) 5 Normal Plantarflexion (S1) 5 Normal Inversion 5 Normal Eversion (S1) 5 Normal Right Dorsiflexion (L4) 4 Good Plantarflexion (S1) 3+ Fair+ Inversion 4 Good Eversion (S1) 4- Good- Comments PF tested standing PT-OP-Q Treatments Start: 06/03/19 17:42 Freq: Status: Active Protocol: Document 07/01/19 14:25 MB (Rec: 07/01/19 15:13 MB [id number]) Neuro Re-Education Treatment Other Activities PT assist PNF Comments PT assist PNF in side lying to faciliated scapulohumeral and pelvic movement as well as LE function to improve gait. Pt presents with ataxic movement of his right LE with LE PNF, decreased hip extension B, greater on the right, increased hip flexor tension. PT-OP-T Assessment and Plan Start: 06/03/19 17:42 Freq: Status: Active Protocol: Document 07/01/19 14:25 MB (Rec: 07/01/19 15:13 MB [id number]) Physical Therapy Assessment Assessment Summary Assessment Pt presents with right greater than left hip flexor tightness and glute weakness ( extension and abduction) with PNF in side lying. Consider standig hip abductor and extensor strengthening in standing, PNF pattern if able. Could add UE movement as well to increase function, core stability and pelvic motion. Pt is able to perform several reps of reciproal stairs short and higher height after treatment. Physical Therapy Plan Next Visit Focus/Plan Next Note Type Treatment Note Next Visit Plan Consider PNF exercises, hip abduction and extension.
--- NOTE | 2019-07-04 14:30 | PT.OTN ---
Current Diagnoses Cerebral infarction, unspecified (07/04/19) Physical Therapy Treatment Note PT-OP-A Visit Information Start: 06/03/19 17:42 Freq: Status: Active Protocol: Document 07/04/19 13:47 MB (Rec: 07/04/19 14:30 MB [id number]) Out-Patient Physical Therapy Visit Information Visit Information Visit Type Treatment Note Visit Start Time 13:47 Visit Stop Time 13:27 Total Visit Minutes 40 Visit Number 8 PT-OP-B Current Condition Start: 06/03/19 17:42 Freq: Status: Active Protocol: Document 06/09/19 15:23 [facility] (Rec: 06/09/19 16:04 [facility] [id number]) Current Condition History of Current Condition Onset Date March 16 History of Current Condition Pt reports suffering CVA with affect of R side with reports of being almost paralyzed. He returned home mid March and has been doing HH PT, OT, & NEONATAL DOCTOR and RN visits until 1.5 weeks ago. Pt reports he is going to just do PT. Pt reports he has improved with RUE function. except with shoulder elevation. Pt reports history of dislocation of R shoulder a few years ago, which he thinks is part of this. Pt reports he can swallow normally & speak and understand and no issues with memory. Pt reports his main complaint is his stamina is very poor. Pt reports he feels like his balance has gotten quite a bit better. Pt reports he has been climbign a grassy knoll outside his house. Pt reports last fall was 4 weeks ago when he was working in the garden and he took a big step to side and had to let himself to ground d/t leg not being able to hold him. Reports fall on 2nd day he came home when he bent down to pick something from floor when holding onto toilet lid and toilet lid broke. THese are the only 2 falls since stroke. Pt reports he has been using a walking stick when he is outside of the house, which is new since the stroke. Pt reports prior to stroke he did a lot of hiking, and biking. Reports he rides a stationary bike at home and walks on the treadmill about 15 min/.5 miles but has to do it every other day or so d/t long recouperation. Reports speed is much slower Treatment Goals Patient/Caregiver Goals Pt wants to return to riding his bike; recover stamina so he can exercise a little more; play golf, return to gardening & yard work fully; be able to descend stairs reciprocally without rail without balance PT-OP-C Subjective Start: 06/03/19 17:42 Freq: Status: Active Protocol: Document 07/04/19 13:47 MB (Rec: 07/04/19 14:30 MB [id number]) OP-PT Subjective Patient Comments Patient Comments Pt states that he was sore after PNF treatment but does feel like it was helpful and he would like to try it again. He is hoping to go to [employer] football game in two weeks. PT-OP-E Functional Tests Start: 06/03/19 17:42 Freq: Status: Active Protocol: Document 06/09/19 15:23 [facility] (Rec: 06/11/19 14:47 [facility] [id number]) Functional Tests 6 Minute Walk Test Distance 993 ft Device Used none Dynamic Gait Index (DGI) Score 18 DGI Impairment Rating 20 to <40% Impaired (Score 15- 19) Functional Gait Assessment Score 16 Functional Gait Assessment Impairment 40 to <60% Impaired (Score 13- Rating 18) PT-OP-G Mobility & Gait Start: 06/03/19 17:42 Freq: Status: Active Protocol: Document 06/09/19 15:23 [facility] (Rec: 06/11/19 14:47 [facility] [id number]) OP Mobility Evaluation Bed Mobility Supine to and from Sit [employer] difficulty with getting up /down PT-OP-M Strength Start: 06/03/19 17:42 Freq: Status: Active Protocol: Document 06/09/19 15:23 [facility] (Rec: 06/09/19 16:04 [facility] [id number]) Hip Strength Hip Manual Muscle Testing Left Flexion (L2) 5 Normal Extension (S1) 4+ Good+ Abduction 4+ Good+ Adduction 4 Good External Rotation 4+ Good+ Internal Rotation 5 Normal Right Flexion (L2) 4 Good Extension (S1) 4- Good- Abduction 3+ Fair+ Adduction 4- Good- External Rotation 3+ Fair+ Internal Rotation 5 Normal Knee Strength Knee Manual Muscle Testing Left Flexion (S2) 5 Normal Extension (L3) 5 Normal Right Flexion (S2) 4+ Good+ Extension (L3) 4 Good Ankle/Foot Strength Ankle and Foot Manual Muscle Testing Left Dorsiflexion (L4) 5 Normal Plantarflexion (S1) 5 Normal Inversion 5 Normal Eversion (S1) 5 Normal Right Dorsiflexion (L4) 4 Good Plantarflexion (S1) 3+ Fair+ Inversion 4 Good Eversion (S1) 4- Good- Comments PF tested standing PT-OP-Q Treatments Start: 06/03/19 17:42 Freq: Status: Active Protocol: Document 07/04/19 13:47 MB (Rec: 07/04/19 14:30 MB [id number]) Neuro Re-Education Treatment Other Activities PT assist PNF Comments Con't PT assist PNF in side lying to faciliated scapulohumeral and pelvic movement as well as LE function to improve gait. Pt presents with ataxic movement of his right LE with LE PNF, decreased hip extension B, greater on the right, increased hip flexor tension. PT-OP-T Assessment and Plan Start: 06/03/19 17:42 Freq: Status: Active Protocol: Document 07/04/19 13:47 MB (Rec: 07/04/19 14:30 MB [id number]) Physical Therapy Assessment Rehab Potential Rehabilitation Potential Good Evaluation Complexity Number of Personal Factors/Comorbidities 3 or More Number of Body Systems Impaired 4 or More Clinical Presentation at Evaluation Evolving Impairments Impairments Activity Tolerance,Balance, Functional Activities, Functional Mobility,Gait, Posture,ROM,Soft Tissue Mobility,Strength Goals strength Short Term Goal (STG) Pt will be indep with HEP. STG Duration 07/29/19 Correction Goal (LTG) Pt will have at least 4+/5 LE strength B in order to allow him to return to his typical activities. LTG Duration 09/08/19 functional activity Short Term Goal (STG) Pt will be able to ascend and descend stairs reciprocallyw ithout rails safely. STG Duration 07/29/19 Correction Goal (LTG) Pt will be able to return to riding his bike safely. LTG Duration 09/08/19 activity Short Term Goal (STG) Pt will be able to return to golfing STG Duration 07/29/19 Correction Goal (LTG) Pt will be able to fully return to participating in yard word and gardening. LTG Duration 09/08/19 balance Impairment DGI 18, FGA 16 Short Term Goal (STG) Pt will improved DGI score to 20/30 to dec risk for falls STG Duration 07/29/19 Signal Engineer Goal (LTG) Pt will improve score of FGA to 23/30 or greater to dec risk for falls LTG Duration 09/08/19 Assessment Summary Assessment PNF is challenging for pt but is helpful. He may benefit from hip flexor lengthening/ stretching and hip extensor strengthening. Physical Therapy Plan Frequency and Duration Frequency of Treatment 2x/Week Duration of Treatment 3 months Plan of Care Start Date 06/09/19 Plan of Care End Date 09/08/19 Next Visit Focus/Plan Next Note Type Treatment Note Next Visit Plan Consider PNF exercises, hip abduction and extension strengthening. Consider hip flexor stretching, quad massage.
--- NOTE | 2019-07-07 15:16 | PT.OTN ---
Current Diagnoses Cerebral infarction, unspecified (07/07/19) Physical Therapy Treatment Note PT-OP-A Visit Information Start: 06/03/19 17:42 Freq: Status: Active Protocol: Document 07/07/19 14:34 [facility] (Rec: 07/07/19 15:16 [facility] [id number]) Out-Patient Physical Therapy Visit Information Visit Information Visit Type Treatment Note Visit Start Time 14:31 Visit Stop Time 15:13 Total Visit Minutes 42 Visit Number 9 Number of DRUPAL PROGRAMMER Visits 0 PT-OP-B Current Condition Start: 06/03/19 17:42 Freq: Status: Active Protocol: Document 06/09/19 15:23 [facility] (Rec: 06/09/19 16:04 [facility] [id number]) Current Condition History of Current Condition Onset Date March 16 History of Current Condition Pt reports suffering CVA with affect of R side with reports of being almost paralyzed. He returned home mid March and has been doing HH PT, OT, & H[employer] CUTTER HAND and RN visits until 1.5 weeks ago. Pt reports he is going to just do PT. Pt reports he has improved with RUE function. except with shoulder elevation. Pt reports history of dislocation of R shoulder a few years ago, which he thinks is part of this. Pt reports he can swallow normally & speak and understand and no issues with memory. Pt reports his main complaint is his stamina is very poor. Pt reports he feels like his balance has gotten quite a bit better. Pt reports he has been climbign a grassy knoll outside his house. Pt reports last fall was 4 weeks ago when he was working in the garden and he took a big step to side and had to let himself to ground d/t leg not being able to hold him. Reports fall on 2nd day he came home when he bent down to pick something from floor when holding onto toilet lid and toilet lid broke. THese are the only 2 falls since stroke. Pt reports he has been using a walking stick when he is outside of the house, which is new since the stroke. Pt reports prior to stroke he did a lot of hiking, and biking. Reports he rides a stationary bike at home and walks on the treadmill about 15 min/.5 miles but has to do it every other day or so d/t long recouperation. Reports speed is much slower Treatment Goals Patient/Caregiver Goals Pt wants to return to riding his bike; recover stamina so he can exercise a little more; play golf, return to gardening & yard work fully; be able to descend stairs reciprocally without rail without balance PT-OP-C Subjective Start: 06/03/19 17:42 Freq: Status: Active Protocol: Document 07/07/19 14:34 [facility] (Rec: 07/07/19 15:16 [facility] [id number]) OP-PT Subjective Patient Comments Patient Comments Pt reports stairs are a little better but still difficult Patient Reported Progress Improving PT-OP-E Functional Tests Start: 06/03/19 17:42 Freq: Status: Active Protocol: Document 06/09/19 15:23 [facility] (Rec: 06/11/19 14:47 [facility] [id number]) Functional Tests 6 Minute Walk Test Distance 993 ft Device Used none Dynamic Gait Index (DGI) Score 18 DGI Impairment Rating 20 to <40% Impaired (Score 15- 19) Functional Gait Assessment Score 16 Functional Gait Assessment Impairment 40 to <60% Impaired (Score 13- Rating 18) PT-OP-G Mobility & Gait Start: 06/03/19 17:42 Freq: Status: Active Protocol: Document 06/09/19 15:23 [facility] (Rec: 06/11/19 14:47 [facility] [id number]) OP Mobility Evaluation Bed Mobility Supine to and from Sit Inc difficulty with getting up /down PT-OP-M Strength Start: 06/03/19 17:42 Freq: Status: Active Protocol: Document 06/09/19 15:23 [facility] (Rec: 06/09/19 16:04 [facility] [id number]) Hip Strength Hip Manual Muscle Testing Left Flexion (L2) 5 Normal Extension (S1) 4+ Good+ Abduction 4+ Good+ Adduction 4 Good External Rotation 4+ Good+ Internal Rotation 5 Normal Right Flexion (L2) 4 Good Extension (S1) 4- Good- Abduction 3+ Fair+ Adduction 4- Good- External Rotation 3+ Fair+ Internal Rotation 5 Normal Knee Strength Knee Manual Muscle Testing Left Flexion (S2) 5 Normal Extension (L3) 5 Normal Right Flexion (S2) 4+ Good+ Extension (L3) 4 Good Ankle/Foot Strength Ankle and Foot Manual Muscle Testing Left Dorsiflexion (L4) 5 Normal Plantarflexion (S1) 5 Normal Inversion 5 Normal Eversion (S1) 5 Normal Right Dorsiflexion (L4) 4 Good Plantarflexion (S1) 3+ Fair+ Inversion 4 Good Eversion (S1) 4- Good- Comments PF tested standing PT-OP-Q Treatments Start: 06/03/19 17:42 Freq: Status: Active Protocol: Document 07/07/19 14:34 [facility] (Rec: 07/07/19 15:16 [facility] [id number]) Gym Equipment Shuttle Balance red clips Comments fwd& side: WBOS & tapping board fwd & back Therapeutic Exercises Standing Exercises hip ext Side bilateral Equipment Used L1 Reps/Minutes 15 hip abd Side bilateral Equipment Used L1 Reps/Minutes 15 Gait Training Gait Activity stairs Description 26 steps reciprocal up/down no rails Neuro Re-Education Treatment Balance Activities Foam Stance Details dynadiscs in staggered stance B bosu Comments 1. toe taps alt x15 2. step up with 3 sec balance x10 B Other Activities PT assist PNF Comments 1.rhythmic initiation ant elevation & post depression of pelvis 2. Comb of isotonics ant elevation & post depression w/ LE patterns then concentric reversals 3. mass flex pattern comb isotonics 4. mass ext pattern combo of isotonics PT-OP-T Assessment and Plan Start: 06/03/19 17:42 Freq: Status: Active Protocol: Document 07/07/19 14:34 [facility] (Rec: 07/07/19 15:16 [facility] [id number]) Physical Therapy Assessment Goals strength Short Term Goal (STG) Pt will be indep with HEP. STG Duration 07/29/19 Fdc Goal (LTG) Pt will have at least 4+/5 LE strength B in order to allow him to return to his typical activities. LTG Duration 09/08/19 functional activity Short Term Goal (STG) Pt will be able to ascend and descend stairs reciprocallyw ithout rails safely. STG Duration 07/29/19 Manufacturing Sales Representative Goal (LTG) Pt will be able to return to riding his bike safely. LTG Duration 09/08/19 activity Short Term Goal (STG) Pt will be able to return to golfing STG Duration 07/29/19 Fdc Goal (LTG) Pt will be able to fully return to participating in yard word and gardening. LTG Duration 09/08/19 balance Impairment DGI 18, FGA 16 Short Term Goal (STG) Pt will improved DGI score to 20/30 to dec risk for falls STG Duration 07/29/19 Manufacturing Sales Representative Goal (LTG) Pt will improve score of FGA to 23/30 or greater to dec risk for falls LTG Duration 09/08/19 Assessment Summary Assessment Pt cont to be challenged by PNF especailly with mass ext pattern. He had difficulty with post depression & maintaining full LE ext pattern. COnt to be challenged by uneven surfaces especially bosu and dynadiscs. Physical Therapy Plan Frequency and Duration Frequency of Treatment 2x/Week Duration of Treatment 3 months Plan of Care Start Date 06/09/19 Plan of Care End Date 09/08/19 Next Visit Focus/Plan Next Note Type Treatment Note Next Visit Plan walking lunges with november & cont advance balance & LE strength; dynamic balance with head turns & EC
--- NOTE | 2019-07-09 13:46 | PT.OTN ---
Current Diagnoses Cerebral infarction, unspecified (07/09/19) Physical Therapy Treatment Note PT-OP-A Visit Information Start: 06/03/19 17:42 Freq: Status: Active Protocol: Document 07/09/19 13:08 [facility] (Rec: 07/09/19 13:46 [facility] [id number]) Out-Patient Physical Therapy Visit Information Visit Information Visit Type Treatment Note Visit Start Time 13:00 Visit Stop Time 13:45 Total Visit Minutes 45 Visit Number 10 Number of ACID CHANGER Visits 0 PT-OP-B Current Condition Start: 06/03/19 17:42 Freq: Status: Active Protocol: Document 06/09/19 15:23 [facility] (Rec: 06/09/19 16:04 [facility] [id number]) Current Condition History of Current Condition Onset Date March 16 History of Current Condition Pt reports suffering CVA with affect of R side with reports of being almost paralyzed. He returned home mid March and has been doing HH PT, OT, & INSURANCE SALES ASSOCIATE and RN visits until 1.5 weeks ago. Pt reports he is going to just do PT. Pt reports he has improved with RUE function. except with shoulder elevation. Pt reports history of dislocation of R shoulder a few years ago, which he thinks is part of this. Pt reports he can swallow normally & speak and understand and no issues with memory. Pt reports his main complaint is his stamina is very poor. Pt reports he feels like his balance has gotten quite a bit better. Pt reports he has been climbign a grassy knoll outside his house. Pt reports last fall was 4 weeks ago when he was working in the garden and he took a big step to side and had to let himself to ground d/t leg not being able to hold him. Reports fall on 2nd day he came home when he bent down to pick something from floor when holding onto toilet lid and toilet lid broke. THese are the only 2 falls since stroke. Pt reports he has been using a walking stick when he is outside of the house, which is new since the stroke. Pt reports prior to stroke he did a lot of hiking, and biking. Reports he rides a stationary bike at home and walks on the treadmill about 15 min/.5 miles but has to do it every other day or so d/t long recouperation. Reports speed is much slower Treatment Goals Patient/Caregiver Goals Pt wants to return to riding his bike; recover stamina so he can exercise a little more; play golf, return to gardening & yard work fully; be able to descend stairs reciprocally without rail without balance PT-OP-C Subjective Start: 06/03/19 17:42 Freq: Status: Active Protocol: Document 07/09/19 13:08 [facility] (Rec: 07/09/19 13:46 [facility] [id number]) OP-PT Subjective Patient Comments Patient Comments Pt reports doing a 3 mile walk yesterday. Notes prior to that the most he has done was 2.5 miles. Reports the 3 miles was difficult and his mm are a little sore. PT-OP-E Functional Tests Start: 06/03/19 17:42 Freq: Status: Active Protocol: Document 06/09/19 15:23 [facility] (Rec: 06/11/19 14:47 [facility] [id number]) Functional Tests 6 Minute Walk Test Distance 993 ft Device Used none Dynamic Gait Index (DGI) Score 18 DGI Impairment Rating 20 to <40% Impaired (Score 15- 19) Functional Gait Assessment Score 16 Functional Gait Assessment Impairment 40 to <60% Impaired (Score 13- Rating 18) PT-OP-G Mobility & Gait Start: 06/03/19 17:42 Freq: Status: Active Protocol: Document 06/09/19 15:23 [facility] (Rec: 06/11/19 14:47 [facility] [id number]) OP Mobility Evaluation Bed Mobility Supine to and from Sit Inc difficulty with getting up /down PT-OP-M Strength Start: 06/03/19 17:42 Freq: Status: Active Protocol: Document 06/09/19 15:23 [facility] (Rec: 06/09/19 16:04 [facility] [id number]) Hip Strength Hip Manual Muscle Testing Left Flexion (L2) 5 Normal Extension (S1) 4+ Good+ Abduction 4+ Good+ Adduction 4 Good External Rotation 4+ Good+ Internal Rotation 5 Normal Right Flexion (L2) 4 Good Extension (S1) 4- Good- Abduction 3+ Fair+ Adduction 4- Good- External Rotation 3+ Fair+ Internal Rotation 5 Normal Knee Strength Knee Manual Muscle Testing Left Flexion (S2) 5 Normal Extension (L3) 5 Normal Right Flexion (S2) 4+ Good+ Extension (L3) 4 Good Ankle/Foot Strength Ankle and Foot Manual Muscle Testing Left Dorsiflexion (L4) 5 Normal Plantarflexion (S1) 5 Normal Inversion 5 Normal Eversion (S1) 5 Normal Right Dorsiflexion (L4) 4 Good Plantarflexion (S1) 3+ Fair+ Inversion 4 Good Eversion (S1) 4- Good- Comments PF tested standing PT-OP-Q Treatments Start: 06/03/19 17:42 Freq: Status: Active Protocol: Document 07/09/19 13:08 [facility] (Rec: 07/09/19 13:46 [facility] [id number]) Gym Equipment Shuttle Balance red clips Comments 1. wt shifts fwd/back & side / sdie 2. fwd & side: balance WBOS & NBOS Therapeutic Ball bike Ball Size/Color silver Body Position seated Reps/Duration 4 min Comments rail prn Therapeutic Exercises Standing Exercises hip ext Side bilateral Equipment Used L1 Reps/Minutes 15 Comments cueing for upright position hip abd Side bilateral Equipment Used L1 Reps/Minutes 15 Comments cueing for upright position march Standing Exercise Name alt with short holds Side bilateral Reps/Minutes 10 Gait Training Gait Activity stairs Description 26 steps reciprocal up/down no rails Neuro Re-Education Treatment Balance Activities bosu Comments 1. step up with 3 sec balance x10 B Other Activities PT assist PNF Comments 1.rhythmic initiation ant elevation & post depression of pelvis 2. Comb of isotonics ant elevation & post depression progressed w/LE patterns 3. concentric reversals 3. mass flex pattern comb isotonics progressed w/LE patterns 4. mass ext pattern combo of isotonics PT-OP-T Assessment and Plan Start: 06/03/19 17:42 Freq: Status: Active Protocol: Document 07/09/19 13:08 [facility] (Rec: 07/09/19 13:46 [facility] [id number]) Physical Therapy Assessment Goals strength Short Term Goal (STG) Pt will be indep with HEP. STG Duration 07/29/19 Intermediate Goal (LTG) Pt will have at least 4+/5 LE strength B in order to allow him to return to his typical activities. LTG Duration 09/08/19 functional activity Short Term Goal (STG) Pt will be able to ascend and descend stairs reciprocallyw ithout rails safely. STG Duration 07/29/19 Bunker Worker Goal (LTG) Pt will be able to return to riding his bike safely. LTG Duration 09/08/19 activity Short Term Goal (STG) Pt will be able to return to golfing STG Duration 07/29/19 Intermediate Goal (LTG) Pt will be able to fully return to participating in [employer] word and gardening. LTG Duration 09/08/19 balance Impairment DGI 18, FGA 16 Short Term Goal (STG) Pt will improved DGI score to 20/30 to dec risk for falls STG Duration 07/29/19 Bunker Worker Goal (LTG) Pt will improve score of FGA to 23/30 or greater to dec risk for falls LTG Duration 09/08/19 Assessment Summary Assessment Pt improved with ability to go up stairs with improved stability reciprocally without rail. Descending cont to be more difficult but improving with dec rail use. He cont to improve with overall balance and stability in strenthening but requires cueing during strengthening exercises. Fatigue still noted with PNF Physical Therapy Plan Frequency and Duration Frequency of Treatment 2x/Week Duration of Treatment 3 months Plan of Care Start Date 06/09/19 Plan of Care End Date 09/08/19 Next Visit Focus/Plan Next Note Type Treatment Note Next Visit Plan cont to work dynamic balance EC & head turns & PNF & walking lunges with november
--- NOTE | 2019-07-16 14:31 | PT.OTN ---
Current Diagnoses Cerebral infarction, unspecified (07/16/19) Physical Therapy Treatment Note PT-OP-A Visit Information Start: 06/03/19 17:42 Freq: Status: Active Protocol: Document 07/16/19 13:50 [facility] (Rec: 07/16/19 14:31 [facility] [id number]) Out-Patient Physical Therapy Visit Information Visit Information Visit Type Treatment Note Visit Start Time 13:50 Visit Stop Time 14:30 Total Visit Minutes 40 Visit Number 11 Number of BREEDING TECHNICIAN Visits 0 PT-OP-B Current Condition Start: 06/03/19 17:42 Freq: Status: Active Protocol: Document 06/09/19 15:23 [facility] (Rec: 06/09/19 16:04 [facility] [id number]) Current Condition History of Current Condition Onset Date March 16 History of Current Condition Pt reports suffering CVA with affect of R side with reports of being almost paralyzed. He returned home mid March and has been doing HH PT, OT, & TOOLER and RN visits until 1.5 weeks ago. Pt reports he is going to just do PT. Pt reports he has improved with RUE function. except with shoulder elevation. Pt reports history of dislocation of R shoulder a few years ago, which he thinks is part of this. Pt reports he can swallow normally & speak and understand and no issues with memory. Pt reports his main complaint is his stamina is very poor. Pt reports he feels like his balance has gotten quite a bit better. Pt reports he has been climbign a grassy knoll outside his house. Pt reports last fall was 4 weeks ago when he was working in the garden and he took a big step to side and had to let himself to ground d/t leg not being able to hold him. Reports fall on 2nd day he came home when he bent down to pick something from floor when holding onto toilet lid and toilet lid broke. THese are the only 2 falls since stroke. Pt reports he has been using a walking stick when he is outside of the house, which is new since the stroke. Pt reports prior to stroke he did a lot of hiking, and biking. Reports he rides a stationary bike at home and walks on the treadmill about 15 min/.5 miles but has to do it every other day or so d/t long recouperation. Reports speed is much slower Treatment Goals Patient/Caregiver Goals Pt wants to return to riding his bike; recover stamina so he can exercise a little more; play golf, return to gardening & yard work fully; be able to descend stairs reciprocally without rail without balance PT-OP-C Subjective Start: 06/03/19 17:42 Freq: Status: Active Protocol: Document 07/16/19 13:50 [facility] (Rec: 07/16/19 14:31 [facility] [id number]) OP-PT Subjective Patient Comments Patient Comments Pt states that he is interested in exercises that work his arm and leg together. PT-OP-E Functional Tests Start: 06/03/19 17:42 Freq: Status: Active Protocol: Document 06/09/19 15:23 [facility] (Rec: 06/11/19 14:47 [facility] [id number]) Functional Tests 6 Minute Walk Test Distance 993 ft Device Used none Dynamic Gait Index (DGI) Score 18 DGI Impairment Rating 20 to <40% Impaired (Score 15- 19) Functional Gait Assessment Score 16 Functional Gait Assessment Impairment 40 to <60% Impaired (Score 13- Rating 18) PT-OP-G Mobility & Gait Start: 06/03/19 17:42 Freq: Status: Active Protocol: Document 06/09/19 15:23 [facility] (Rec: 06/11/19 14:47 [facility] [id number]) OP Mobility Evaluation Bed Mobility Supine to and from Sit Inc difficulty with getting up /down PT-OP-M Strength Start: 06/03/19 17:42 Freq: Status: Active Protocol: Document 06/09/19 15:23 [facility] (Rec: 06/09/19 16:04 [facility] [id number]) Hip Strength Hip Manual Muscle Testing Left Flexion (L2) 5 Normal Extension (S1) 4+ Good+ Abduction 4+ Good+ Adduction 4 Good External Rotation 4+ Good+ Internal Rotation 5 Normal Right Flexion (L2) 4 Good Extension (S1) 4- Good- Abduction 3+ Fair+ Adduction 4- Good- External Rotation 3+ Fair+ Internal Rotation 5 Normal Knee Strength Knee Manual Muscle Testing Left Flexion (S2) 5 Normal Extension (L3) 5 Normal Right Flexion (S2) 4+ Good+ Extension (L3) 4 Good Ankle/Foot Strength Ankle and Foot Manual Muscle Testing Left Dorsiflexion (L4) 5 Normal Plantarflexion (S1) 5 Normal Inversion 5 Normal Eversion (S1) 5 Normal Right Dorsiflexion (L4) 4 Good Plantarflexion (S1) 3+ Fair+ Inversion 4 Good Eversion (S1) 4- Good- Comments PF tested standing PT-OP-Q Treatments Start: 06/03/19 17:42 Freq: Status: Active Protocol: Document 07/16/19 13:50 [facility] (Rec: 07/16/19 14:31 [facility] [id number]) Cardio Equipment Elliptical Duration (Minutes) 10 Resistance 5 Therapeutic Exercises Sitting Exercises Rolling pin STM Comments Added to HEP: rolling pin STM Standing Exercises Shoulder abduction against wall Comments AAROM right shoulder abduction against wall Theraband ER isometric hold balance, core Resistance Level 1 band Comments Added to HEP: pt holding band with shoulder at side, elbow bent, hod step PT-OP-T Assessment and Plan Start: 06/03/19 17:42 Freq: Status: Active Protocol: Document 07/16/19 13:50 [facility] (Rec: 07/16/19 14:31 [facility] [id number]) Physical Therapy Assessment Goals strength Short Term Goal (STG) Pt will be indep with HEP. STG Duration 07/29/19 [employer] Barista Goal (LTG) Pt will have at least 4+/5 LE strength B in order to allow him to return to his typical activities. LTG Duration 09/08/19 functional activity Short Term Goal (STG) Pt will be able to ascend and descend stairs reciprocallyw ithout rails safely. STG Duration 07/29/19 [employer] Barista Goal (LTG) Pt will be able to return to riding his bike safely. LTG Duration 09/08/19 activity Short Term Goal (STG) Pt will be able to return to golfing STG Duration 07/29/19 Custodial Goal (LTG) Pt will be able to fully return to participating in yard word and gardening. LTG Duration 09/08/19 balance Impairment DGI 18, FGA 16 Short Term Goal (STG) Pt will improved DGI score to 20/30 to dec risk for falls STG Duration 07/29/19 [employer] Barista Goal (LTG) Pt will improve score of FGA to 23/30 or greater to dec risk for falls LTG Duration 09/08/19 Assessment Summary Assessment Initiated elliptical, core and balance exercises this date with use of theraband resistance--step out and hold with isometric, monitor response and progress. Physical Therapy Plan Frequency and Duration Frequency of Treatment 2x/Week Duration of Treatment 3 months Plan of Care Start Date 06/09/19 Plan of Care End Date 09/08/19 Next Visit Focus/Plan Next Note Type Treatment Note Next Visit Plan Consider Maximilian stretch with pelvic tilt to fasilitate hip flexor and knee extensor flexibility. cont to work dynamic balance EC & head turns & PNF & walking lunges with november
--- NOTE | 2019-07-23 19:03 | PT.OTN ---
Current Diagnoses Cerebral infarction, unspecified (07/23/19) Physical Therapy Treatment Note PT-OP-A Visit Information Start: 06/03/19 17:42 Freq: Status: Active Protocol: Document 07/23/19 14:32 [facility] (Rec: 07/23/19 16:17 [facility] [id number]) Out-Patient Physical Therapy Visit Information Visit Information Visit Type Treatment Note Visit Start Time 14:32 Visit Stop Time 15:11 Total Visit Minutes 39 Visit Number 12 Number of PROTOTYPE MACHINIST Visits 0 PT-OP-B Current Condition Start: 06/03/19 17:42 Freq: Status: Active Protocol: Document 06/09/19 15:23 [facility] (Rec: 06/09/19 16:04 [facility] [id number]) Current Condition History of Current Condition Onset Date March 16 History of Current Condition Pt reports suffering CVA with affect of R side with reports of being almost paralyzed. He returned home mid March and has been doing HH PT, OT, & QUALITY CONTROL ENGINEER and RN visits until 1.5 weeks ago. Pt reports he is going to just do PT. Pt reports he has improved with RUE function. except with shoulder elevation. Pt reports history of dislocation of R shoulder a few years ago, which he thinks is part of this. Pt reports he can swallow normally & speak and understand and no issues with memory. Pt reports his main complaint is his stamina is very poor. Pt reports he feels like his balance has gotten quite a bit better. Pt reports he has been climbign a grassy knoll outside his house. Pt reports last fall was 4 weeks ago when he was working in the garden and he took a big step to side and had to let himself to ground d/t leg not being able to hold him. Reports fall on 2nd day he came home when he bent down to pick something from floor when holding onto toilet lid and toilet lid broke. THese are the only 2 falls since stroke. Pt reports he has been using a walking stick when he is outside of the house, which is new since the stroke. Pt reports prior to stroke he did a lot of hiking, and biking. Reports he rides a stationary bike at home and walks on the treadmill about 15 min/.5 miles but has to do it every other day or so d/t long recouperation. Reports speed is much slower Treatment Goals Patient/Caregiver Goals Pt wants to return to riding his bike; recover stamina so he can exercise a little more; play golf, return to gardening & yard work fully; be able to descend stairs reciprocally without rail without balance PT-OP-C Subjective Start: 06/03/19 17:42 Freq: Status: Active Protocol: Document 07/23/19 14:32 [facility] (Rec: 07/23/19 16:17 [facility] [id number]) OP-PT Subjective Patient Comments Patient Comments Pt states that he was able to make it to the [employer] game and was able to get up and down the stairs, but there were some sections that were a little scary because they didnt have a handrail to hold onto PT-OP-E Functional Tests Start: 06/03/19 17:42 Freq: Status: Active Protocol: Document 06/09/19 15:23 [facility] (Rec: 06/11/19 14:47 [facility] [id number]) Functional Tests 6 Minute Walk Test Distance 993 ft Device Used none Dynamic Gait Index (DGI) Score 18 DGI Impairment Rating 20 to <40% Impaired (Score 15- 19) Functional Gait Assessment Score 16 Functional Gait Assessment Impairment 40 to <60% Impaired (Score 13- Rating 18) PT-OP-G Mobility & Gait Start: 06/03/19 17:42 Freq: Status: Active Protocol: Document 06/09/19 15:23 [facility] (Rec: 06/11/19 14:47 [facility] [id number]) OP Mobility Evaluation Bed Mobility Supine to and from Sit Inc difficulty with getting up /down PT-OP-M Strength Start: 06/03/19 17:42 Freq: Status: Active Protocol: Document 06/09/19 15:23 [facility] (Rec: 06/09/19 16:04 [facility] [id number]) Hip Strength Hip Manual Muscle Testing Left Flexion (L2) 5 Normal Extension (S1) 4+ Good+ Abduction 4+ Good+ Adduction 4 Good External Rotation 4+ Good+ Internal Rotation 5 Normal Right Flexion (L2) 4 Good Extension (S1) 4- Good- Abduction 3+ Fair+ Adduction 4- Good- External Rotation 3+ Fair+ Internal Rotation 5 Normal Knee Strength Knee Manual Muscle Testing Left Flexion (S2) 5 Normal Extension (L3) 5 Normal Right Flexion (S2) 4+ Good+ Extension (L3) 4 Good Ankle/Foot Strength Ankle and Foot Manual Muscle Testing Left Dorsiflexion (L4) 5 Normal Plantarflexion (S1) 5 Normal Inversion 5 Normal Eversion (S1) 5 Normal Right Dorsiflexion (L4) 4 Good Plantarflexion (S1) 3+ Fair+ Inversion 4 Good Eversion (S1) 4- Good- Comments PF tested standing PT-OP-Q Treatments Start: 06/03/19 17:42 Freq: Status: Active Protocol: Document 07/23/19 14:32 [facility] (Rec: 07/23/19 16:17 [facility] [id number]) Cardio Equipment Elliptical Duration (Minutes) 8 Resistance 5 Gym Equipment Shuttle Balance red clips Comments 1. wt shifts fwd/back & side / side 2. fwd & side: balance WBOS & NBOS Therapeutic Exercises Standing Exercises lunges Standing Exercise Name walking lunges Side bilateral Reps/Minutes 10 each Gait Training Gait Activity stairs Description 26 steps reciprocal up/down no rails Neuro Re-Education Treatment Balance Activities Foam Stance Details tandem stance Surface blue and black therapad Reps/Duration 1 min hold each position bosu Details step ups/downs Surface blue side Reps/Duration 15 ea Other Activities PT assist PNF Comments 1.rhythmic initiation post depression of pelvis 2. Comb of isotonics ant elevation & post depression progressed w/LE patterns 3. mass flex pattern comb isotonics progressed w/LE patterns 4. mass ext pattern combo of isotonics PT-OP-T Assessment and Plan Start: 06/03/19 17:42 Freq: Status: Active Protocol: Document 07/23/19 14:32 [facility] (Rec: 07/23/19 16:17 [facility] [id number]) Physical Therapy Assessment Goals strength Short Term Goal (STG) Pt will be indep with HEP. STG Duration 07/29/19 Shuttle Fixer Goal (LTG) Pt will have at least 4+/5 LE strength B in order to allow him to return to his typical activities. LTG Duration 09/08/19 functional activity Short Term Goal (STG) Pt will be able to ascend and descend stairs reciprocallyw ithout rails safely. STG Duration 07/29/19 Shuttle Fixer Goal (LTG) Pt will be able to return to riding his bike safely. LTG Duration 09/08/19 activity Short Term Goal (STG) Pt will be able to return to golfing STG Duration 07/29/19 Fpc Goal (LTG) Pt will be able to fully return to participating in yard word and gardening. LTG Duration 09/08/19 balance Impairment DGI 18, FGA 16 Short Term Goal (STG) Pt will improved DGI score to 20/30 to dec risk for falls STG Duration 07/29/19 Shuttle Fixer Goal (LTG) Pt will improve score of FGA to 23/30 or greater to dec risk for falls LTG Duration 09/08/19 Assessment Summary Assessment Pt was able to tolerate ellipitical excercise machine. He performed much better on the stairs without use of HR, but demonstrated some fatigue after about 20 stairs and had less push off of the R LE. He was adequately challenged by NBOS and unstable surfaces, especially tandem stance. He tolerated walking lunges well. Pt continued to be challenged by PNF with posterior depression of pelvis . Physical Therapy Plan Frequency and Duration Frequency of Treatment 2x/Week Duration of Treatment 3 months Plan of Care Start Date 06/09/19 Plan of Care End Date 09/08/19 Next Visit Focus/Plan Next Note Type Treatment Note Next Visit Plan Consider Maximilian stretch with pelvic tilt to fasilitate hip flexor and knee extensor flexibility. cont to work dynamic balance EC & head turns & PNF & walking lunges with november
--- NOTE | 2019-07-30 17:53 | PT.OTN ---
Current Diagnoses Cerebral infarction, unspecified (07/30/19) Physical Therapy Treatment Note PT-OP-A Visit Information Start: 06/03/19 17:42 Freq: Status: Active Protocol: Document 07/30/19 14:30 MT (Rec: 07/30/19 16:16 MT [id number]) Out-Patient Physical Therapy Visit Information Visit Information Visit Type Treatment Note Visit Start Time 14:30 Visit Stop Time 15:11 Total Visit Minutes 41 Visit Number 13 Number of EXERCISE PLANNER Visits 0 PT-OP-B Current Condition Start: 06/03/19 17:42 Freq: Status: Active Protocol: Document 06/09/19 15:23 LR (Rec: 06/09/19 16:04 [facility] [id number]) Current Condition History of Current Condition Onset Date March 16 History of Current Condition Pt reports suffering CVA with affect of R side with reports of being almost paralyzed. 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 Pt reports he is going to just do PT. Pt reports he has improved with RUE function. except with shoulder elevation. Pt reports history of dislocation of R shoulder a few years ago, which he thinks is part of this. Pt reports he can swallow normally & speak and understand and no issues with memory. Pt reports his main complaint is his stamina is very poor. Pt reports he feels like his balance has gotten quite a bit better. Pt reports he has been climbign a grassy knoll outside his house. Pt reports last fall was 4 weeks ago when he was working in the garden and he took a big step to side and had to let himself to ground d/t leg not being able to hold him. Reports fall on 2nd day he came home when he bent down to pick something from floor when holding onto toilet lid and toilet lid broke. THese are the only 2 falls since stroke. Pt reports he has been using a walking stick when he is outside of the house, which is new since the stroke. Pt reports prior to stroke he did a lot of hiking, and biking. Reports he rides a stationary bike at home and walks on the treadmill about 15 min/.5 miles but has to do it every other day or so d/t long recouperation. Reports speed is much slower Treatment Goals Patient/Caregiver Goals Pt wants to return to riding his bike; recover stamina so he can exercise a little more; play golf, return to gardening & yard work fully; be able to descend stairs reciprocally without rail without balance PT-OP-C Subjective Start: 06/03/19 17:42 Freq: Status: Active Protocol: Document 07/30/19 14:30 MT (Rec: 07/30/19 16:16 MT [id number]) OP-PT Subjective Patient Comments Patient Comments Pt stated that he was able to walk around [facility] all the way. He took some rest breaks and down hill sections were difficult for him. He reports that he has been compliant with his exercise program and feels that he is getting stronger. PT-OP-E Functional Tests Start: 06/03/19 17:42 Freq: Status: Active Protocol: Document 06/09/19 15:23 [facility] (Rec: 06/11/19 14:47 [facility] [id number]) Functional Tests 6 Minute Walk Test Distance 993 ft Device Used none Dynamic Gait Index (DGI) Score 18 DGI Impairment Rating 20 to <40% Impaired (Score 15- 19) Functional Gait Assessment Score 16 Functional Gait Assessment Impairment 40 to <60% Impaired (Score 13- Rating 18) PT-OP-G Mobility & Gait Start: 06/03/19 17:42 Freq: Status: Active Protocol: Document 06/09/19 15:23 [facility] (Rec: 06/11/19 14:47 [facility] [id number]) OP Mobility Evaluation Bed Mobility Supine to and from Sit Inc difficulty with getting up /down PT-OP-M Strength Start: 06/03/19 17:42 Freq: Status: Active Protocol: Document 06/09/19 15:23 [facility] (Rec: 06/09/19 16:04 [facility] [id number]) Hip Strength Hip Manual Muscle Testing Left Flexion (L2) 5 Normal Extension (S1) 4+ Good+ Abduction 4+ Good+ Adduction 4 Good External Rotation 4+ Good+ Internal Rotation 5 Normal Right Flexion (L2) 4 Good Extension (S1) 4- Good- Abduction 3+ Fair+ Adduction 4- Good- External Rotation 3+ Fair+ Internal Rotation 5 Normal Knee Strength Knee Manual Muscle Testing Left Flexion (S2) 5 Normal Extension (L3) 5 Normal Right Flexion (S2) 4+ Good+ Extension (L3) 4 Good Ankle/Foot Strength Ankle and Foot Manual Muscle Testing Left Dorsiflexion (L4) 5 Normal Plantarflexion (S1) 5 Normal Inversion 5 Normal Eversion (S1) 5 Normal Right Dorsiflexion (L4) 4 Good Plantarflexion (S1) 3+ Fair+ Inversion 4 Good Eversion (S1) 4- Good- Comments PF tested standing PT-OP-Q Treatments Start: 06/03/19 17:42 Freq: Status: Active Protocol: Document 07/30/19 14:30 MT (Rec: 07/30/19 16:16 MT [id number]) Cardio Equipment Elliptical Duration (Minutes) 8 Resistance 5 Gym Equipment Shuttle Balance red clips Comments 1. balance holds 1 minute fwd/ bck and side/side 2. WBOS c balloon toss 3. NBOS c head turns Therapeutic Ball bike Ball Size/Color silver Body Position Sitting Reps/Duration 4 minutes Sport Cord green Exercise Details step ups/downs Reps/Duration 10 per leg Comments onto 8 inch step Therapeutic Exercises Standing Exercises box taps Standing Exercise Name 45 degree angle and lateral toe taps onto box Side bilateral Equipment Used 16 and 12 inch box Reps/Minutes 15 per side Comments pt struggled with lateral steps and swtiched to smaller box lunges Standing Exercise Name walking lunges Side bilateral Reps/Minutes 10 each squat Side bilateral Reps/Minutes 15 Comments cueign to avoid knees going over toes and upright posture Neuro Re-Education Treatment Balance Activities bosu Details step ups/downs Surface blue side Reps/Duration 15 ea PT-OP-T Assessment and Plan Start: 06/03/19 17:42 Freq: Status: Active Protocol: Document 07/30/19 14:30 MT (Rec: 07/30/19 16:16 MT [id number]) Physical Therapy Assessment Goals strength Short Term Goal (STG) Pt will be indep with HEP. STG Duration 07/29/19 Custodial Goal (LTG) Pt will have at least 4+/5 LE strength B in order to allow him to return to his typical activities. LTG Duration 09/08/19 functional activity Short Term Goal (STG) Pt will be able to ascend and descend stairs reciprocallyw ithout rails safely. STG Duration 07/29/19 Custodial Goal (LTG) Pt will be able to return to riding his bike safely. LTG Duration 09/08/19 activity Short Term Goal (STG) Pt will be able to return to golfing STG Duration 07/29/19 Custodial Goal (LTG) Pt will be able to fully return to participating in [employer] word and gardening. LTG Duration 09/08/19 balance Impairment DGI 18, FGA 16 Short Term Goal (STG) Pt will improved DGI score to 20/30 to dec risk for falls STG Duration 07/29/19 Toter Goal (LTG) Pt will improve score of FGA to 23/30 or greater to dec risk for falls LTG Duration 09/08/19 Assessment Summary Assessment Pt mentioned that he struggled to get leg over to get on his bike. Worked on toe taps onto 16 inch box to address this. Pt was easily fatigued from this activity and was unable to complete lateral taps on 16 inch box so moved to 12 inch box. Pt's balance on unstable surfaces and NBOS has improved with less LOB events and increased dual tasking activities Physical Therapy Plan Frequency and Duration Frequency of Treatment 2x/Week Duration of Treatment 3 months Plan of Care Start Date 06/09/19 Plan of Care End Date 09/08/19 Next Visit Focus/Plan Next Note Type Treatment Note Next Visit Plan continue working on marching and toe tap activities onto high step, balance with dual tasking c NBOS and unstable surfaces
--- NOTE | 2019-08-06 18:46 | PT.OTN ---
Current Diagnoses Cerebral infarction, unspecified (08/06/19) Physical Therapy Treatment Note PT-OP-A Visit Information Start: 06/03/19 17:42 Freq: Status: Active Protocol: Document 08/06/19 14:30 MT (Rec: 08/06/19 15:25 MT [id number]) Out-Patient Physical Therapy Visit Information Visit Information Visit Type Treatment Note Visit Start Time 14:30 Visit Stop Time 15:14 Total Visit Minutes 44 Visit Number 14 Number of INFORMATICS NURSE Visits 0 PT-OP-B Current Condition Start: 06/03/19 17:42 Freq: Status: Active Protocol: Document 06/09/19 15:23 LR (Rec: 06/09/19 16:04 [facility] [id number]) Current Condition History of Current Condition Onset Date March 16 History of Current Condition Pt reports suffering CVA with affect of R side with reports of being almost paralyzed. 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 Pt reports he is going to just do PT. Pt reports he has improved with RUE function. except with shoulder elevation. Pt reports history of dislocation of R shoulder a few years ago, which he thinks is part of this. Pt reports he can swallow normally & speak and understand and no issues with memory. Pt reports his main complaint is his stamina is very poor. Pt reports he feels like his balance has gotten quite a bit better. Pt reports he has been climbign a grassy knoll outside his house. Pt reports last fall was 4 weeks ago when he was working in the garden and he took a big step to side and had to let himself to ground d/t leg not being able to hold him. Reports fall on 2nd day he came home when he bent down to pick something from floor when holding onto toilet lid and toilet lid broke. THese are the only 2 falls since stroke. Pt reports he has been using a walking stick when he is outside of the house, which is new since the stroke. Pt reports prior to stroke he did a lot of hiking, and biking. Reports he rides a stationary bike at home and walks on the treadmill about 15 min/.5 miles but has to do it every other day or so d/t long recouperation. Reports speed is much slower Treatment Goals Patient/Caregiver Goals Pt wants to return to riding his bike; recover stamina so he can exercise a little more; play golf, return to gardening & yard work fully; be able to descend stairs reciprocally without rail without balance PT-OP-C Subjective Start: 06/03/19 17:42 Freq: Status: Active Protocol: Document 08/06/19 14:30 MT (Rec: 08/06/19 15:25 MT [id number]) OP-PT Subjective Patient Comments Patient Comments Pt stated that he has been very tired overall. He raked leaves this morning and that made him more tired. He said that after his last PT session , he was tired from the side steps, but has been doing them at home and does not get quite as tired PT-OP-E Functional Tests Start: 06/03/19 17:42 Freq: Status: Active Protocol: Document 06/09/19 15:23 [facility] (Rec: 06/11/19 14:47 [facility] [id number]) Functional Tests 6 Minute Walk Test Distance 993 ft Device Used none Dynamic Gait Index (DGI) Score 18 DGI Impairment Rating 20 to <40% Impaired (Score 15- 19) Functional Gait Assessment Score 16 Functional Gait Assessment Impairment 40 to <60% Impaired (Score 13- Rating 18) PT-OP-G Mobility & Gait Start: 06/03/19 17:42 Freq: Status: Active Protocol: Document 06/09/19 15:23 [facility] (Rec: 06/11/19 14:47 [facility] [id number]) OP Mobility Evaluation Bed Mobility Supine to and from Sit Inc difficulty with getting up /down PT-OP-M Strength Start: 06/03/19 17:42 Freq: Status: Active Protocol: Document 06/09/19 15:23 [facility] (Rec: 06/09/19 16:04 [facility] [id number]) Hip Strength Hip Manual Muscle Testing Left Flexion (L2) 5 Normal Extension (S1) 4+ Good+ Abduction 4+ Good+ Adduction 4 Good External Rotation 4+ Good+ Internal Rotation 5 Normal Right Flexion (L2) 4 Good Extension (S1) 4- Good- Abduction 3+ Fair+ Adduction 4- Good- External Rotation 3+ Fair+ Internal Rotation 5 Normal Knee Strength Knee Manual Muscle Testing Left Flexion (S2) 5 Normal Extension (L3) 5 Normal Right Flexion (S2) 4+ Good+ Extension (L3) 4 Good Ankle/Foot Strength Ankle and Foot Manual Muscle Testing Left Dorsiflexion (L4) 5 Normal Plantarflexion (S1) 5 Normal Inversion 5 Normal Eversion (S1) 5 Normal Right Dorsiflexion (L4) 4 Good Plantarflexion (S1) 3+ Fair+ Inversion 4 Good Eversion (S1) 4- Good- Comments PF tested standing PT-OP-Q Treatments Start: 06/03/19 17:42 Freq: Status: Active Protocol: Document 08/06/19 14:30 MT (Rec: 08/06/19 15:25 MT [id number]) Cardio Equipment Elliptical Duration (Minutes) 8 Resistance 8 Gym Equipment Shuttle Balance red clips Comments 1. balance holds fwd/bck and side/side WBoS 2. NBOS holds fwd/back and side/side 3. stagger stance fwd/baack Sport Cord green Exercise Details step ups/downs Reps/Duration 20 per leg Comments onto 4 inch step Therapeutic Exercises Standing Exercises box taps Standing Exercise Name 45 degree angle and lateral toe taps onto box Side bilateral Equipment Used 12 inch box Reps/Minutes 15 per side lunges Standing Exercise Name walking lunges Side bilateral Reps/Minutes 10 each Comments without use of handrail PT-OP-T Assessment and Plan Start: 06/03/19 17:42 Freq: Status: Active Protocol: Document 08/06/19 14:30 MT (Rec: 08/06/19 15:25 MT [id number]) Physical Therapy Assessment Goals strength Short Term Goal (STG) Pt will be indep with HEP. STG Duration 07/29/19 Hand Sole Sewer Goal (LTG) Pt will have at least 4+/5 LE strength B in order to allow him to return to his typical activities. LTG Duration 09/08/19 functional activity Short Term Goal (STG) Pt will be able to ascend and descend stairs reciprocallyw ithout rails safely. STG Duration 07/29/19 Hand Sole Sewer Goal (LTG) Pt will be able to return to riding his bike safely. LTG Duration 09/08/19 activity Short Term Goal (STG) Pt will be able to return to golfing STG Duration 07/29/19 Hand Sole Sewer Goal (LTG) Pt will be able to fully return to participating in yard word and gardening. LTG Duration 09/08/19 balance Impairment DGI 18, FGA 16 Short Term Goal (STG) Pt will improved DGI score to 20/30 to dec risk for falls STG Duration 07/29/19 Hand Sole Sewer Goal (LTG) Pt will improve score of FGA to 23/30 or greater to dec risk for falls LTG Duration 09/08/19 Assessment Summary Assessment Pt has shown improvement with his standing tolerance. he is able to do longer bouts of exercise before needing a break. Pt was able to perform tow taps onto 12 inch box with more control/balance and less fatigue than previous session. Pt also is demonstrating improved balance with less LOB events in NBOS positions Physical Therapy Plan Frequency and Duration Frequency of Treatment 2x/Week Duration of Treatment 3 months Plan of Care Start Date 06/09/19 Plan of Care End Date 09/08/19 Next Visit Focus/Plan Next Note Type Treatment Note Next Visit Plan continue to work on marching and toe taps into end range hip flexion for improved ability to get onto bike, balance with NBOS and unsteady surfaces
--- NOTE | 2019-08-12 11:45 | PT.OTN ---
Current Diagnoses Cerebral infarction, unspecified (08/12/19) Physical Therapy Treatment Note PT-OP-A Visit Information Start: 06/03/19 17:42 Freq: Status: Active Protocol: Document 08/12/19 09:00 MT (Rec: 08/12/19 10:06 MT [id number]) Out-Patient Physical Therapy Visit Information Visit Information Visit Type Treatment Note Visit Start Time 09:00 Visit Stop Time 09:43 Total Visit Minutes 43 Visit Number 15 Number of REAL ESTATE PARALEGAL Visits 0 PT-OP-B Current Condition Start: 06/03/19 17:42 Freq: Status: Active Protocol: Document 06/09/19 15:23 LR (Rec: 06/09/19 16:04 [facility] [id number]) Current Condition History of Current Condition Onset Date March 16 History of Current Condition Pt reports suffering CVA with affect of R side with reports of being almost paralyzed. 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 Pt reports he is going to just do PT. Pt reports he has improved with RUE function. except with shoulder elevation. Pt reports history of dislocation of R shoulder a few years ago, which he thinks is part of this. Pt reports he can swallow normally & speak and understand and no issues with memory. Pt reports his main complaint is his stamina is very poor. Pt reports he feels like his balance has gotten quite a bit better. Pt reports he has been climbign a grassy knoll outside his house. Pt reports last fall was 4 weeks ago when he was working in the garden and he took a big step to side and had to let himself to ground d/t leg not being able to hold him. Reports fall on 2nd day he came home when he bent down to pick something from floor when holding onto toilet lid and toilet lid broke. THese are the only 2 falls since stroke. Pt reports he has been using a walking stick when he is outside of the house, which is new since the stroke. Pt reports prior to stroke he did a lot of hiking, and biking. Reports he rides a stationary bike at home and walks on the treadmill about 15 min/.5 miles but has to do it every other day or so d/t long recouperation. Reports speed is much slower Treatment Goals Patient/Caregiver Goals Pt wants to return to riding his bike; recover stamina so he can exercise a little more; play golf, return to gardening & yard work fully; be able to descend stairs reciprocally without rail without balance PT-OP-C Subjective Start: 06/03/19 17:42 Freq: Status: Active Protocol: Document 08/12/19 09:00 MT (Rec: 08/12/19 10:06 MT [id number]) OP-PT Subjective Patient Comments Patient Comments Pt stated that he has been doing better and improving, but still has difficulty with getting onto his exercise bike and could not get onto his motorcycle. He has been increasing his time and walking speed on the treadmill . PT-OP-E Functional Tests Start: 06/03/19 17:42 Freq: Status: Active Protocol: Document 06/09/19 15:23 [facility] (Rec: 06/11/19 14:47 [facility] [id number]) Functional Tests 6 Minute Walk Test Distance 993 ft Device Used none Dynamic Gait Index (DGI) Score 18 DGI Impairment Rating 20 to <40% Impaired (Score 15- 19) Functional Gait Assessment Score 16 Functional Gait Assessment Impairment 40 to <60% Impaired (Score 13- Rating 18) PT-OP-G Mobility & Gait Start: 06/03/19 17:42 Freq: Status: Active Protocol: Document 06/09/19 15:23 [facility] (Rec: 06/11/19 14:47 [facility] [id number]) OP Mobility Evaluation Bed Mobility Supine to and from Sit Inc difficulty with getting up /down PT-OP-M Strength Start: 06/03/19 17:42 Freq: Status: Active Protocol: Document 06/09/19 15:23 [facility] (Rec: 06/09/19 16:04 [facility] [id number]) Hip Strength Hip Manual Muscle Testing Left Flexion (L2) 5 Normal Extension (S1) 4+ Good+ Abduction 4+ Good+ Adduction 4 Good External Rotation 4+ Good+ Internal Rotation 5 Normal Right Flexion (L2) 4 Good Extension (S1) 4- Good- Abduction 3+ Fair+ Adduction 4- Good- External Rotation 3+ Fair+ Internal Rotation 5 Normal Knee Strength Knee Manual Muscle Testing Left Flexion (S2) 5 Normal Extension (L3) 5 Normal Right Flexion (S2) 4+ Good+ Extension (L3) 4 Good Ankle/Foot Strength Ankle and Foot Manual Muscle Testing Left Dorsiflexion (L4) 5 Normal Plantarflexion (S1) 5 Normal Inversion 5 Normal Eversion (S1) 5 Normal Right Dorsiflexion (L4) 4 Good Plantarflexion (S1) 3+ Fair+ Inversion 4 Good Eversion (S1) 4- Good- Comments PF tested standing PT-OP-Q Treatments Start: 06/03/19 17:42 Freq: Status: Active Protocol: Document 08/12/19 09:00 MT (Rec: 08/12/19 10:06 MT [id number]) Cardio Equipment Elliptical Duration (Minutes) 9 Resistance 6 Gym Equipment Shuttle Balance red clips Comments 1. balance holds fwd/bck and side/side WBoS 2. NBOS holds fwd/back and side/side 3. weight shift fwd/bck Sport Cord green Exercise Details step ups/downs Reps/Duration 10 per leg Comments onto 8 inch step Therapeutic Exercises Standing Exercises box taps Standing Exercise Name 45 degree angle and lateral toe taps onto box Side bilateral Equipment Used 16 inch box Reps/Minutes 10 per side Comments with extra hip flexion hold after tap stretch Standing Exercise Name hip flexor stretch Side bilateral Comments added to HEP lunges Standing Exercise Name walking lunges Side bilateral Reps/Minutes 10 each Comments without use of handrail Manual Therapy Treatment Soft Tissue Mobilization hip flexor Body Location R hip flexor border with sartorius Mobilization Type Rolling,Strumming,Sustained Pressure Intensity/Depth Moderate Body Position Hooklying Comments with hip flexor and ER Neuro Re-Education Treatment Other Activities PT assist PNF Details pelvic and shoulder PNF mass flexion/extension Comments 1) rhythmic initiation 2) combination isotonics 3) concentric reversals PT-OP-T Assessment and Plan Start: 06/03/19 17:42 Freq: Status: Active Protocol: Document 08/12/19 09:00 MT (Rec: 08/12/19 10:06 NM [id number]) Physical Therapy Assessment Goals strength Short Term Goal (STG) Pt will be indep with HEP. STG Duration 07/29/19 Disulfurizer Tender Goal (LTG) Pt will have at least 4+/5 LE strength B in order to allow him to return to his typical activities. LTG Duration 09/08/19 functional activity Short Term Goal (STG) Pt will be able to ascend and descend stairs reciprocallyw ithout rails safely. STG Duration 07/29/19 Longterm Goal (LTG) Pt will be able to return to riding his bike safely. LTG Duration 09/08/19 activity Short Term Goal (STG) Pt will be able to return to golfing STG Duration 07/29/19 Disulfurizer Tender Goal (LTG) Pt will be able to fully return to participating in yard word and gardening. LTG Duration 09/08/19 balance Impairment DGI 18, FGA 16 Short Term Goal (STG) Pt will improved DGI score to 20/30 to dec risk for falls STG Duration 07/29/19 Disulfurizer Tender Goal (LTG) Pt will improve score of FGA to 23/30 or greater to dec risk for falls LTG Duration 09/08/19 Assessment Summary Assessment Pt has shown improvement with his hip flexion range and has been progressed to a taller box for his exercises. He still remains weak at the end rang eof his fip flexion, so added isometric hip flexion holds to his box tap exercise. Pt has increased stability with balance exercises with less LOB events with NBOS activities. Pt demonstrates increased push off with step ups and is able to perform PNF with less cueing. During concentric reversals, pt had popping sensation in his hip flexors, which was mildly painful, so switched to STM of hip flexors focusing of sartorius borders, which resulted in better gliding of muscle with hip flexion/ER and reduced popping sensations. Pt was also given hip flexor stretch for HEP. Physical Therapy Plan Frequency and Duration Frequency of Treatment 2x/Week Duration of Treatment 3 months Plan of Care Start Date 06/09/19 Plan of Care End Date 09/08/19 Next Visit Focus/Plan Next Note Type Treatment Note Next Visit Plan continue to work on marching and toe taps into end range hip flexion for improved ability to get onto bike, balance with NBOS and unsteady surfaces
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
--- NOTE | 2019-08-28 15:52 | PT.OTN ---
Current Diagnoses Cerebral infarction, unspecified (08/28/19) Physical Therapy Treatment Note PT-OP-A Visit Information Start: 06/03/19 17:42 Freq: Status: Active Protocol: Document 08/28/19 14:33 [facility] (Rec: 08/28/19 15:51 [facility] [id number]) Out-Patient Physical Therapy Visit Information Visit Information Visit Type Treatment Note Visit Start Time 14:30 Visit Stop Time 15:12 Total Visit Minutes 42 Visit Number 17 Number of OYSTER OPENER Visits 0 PT-OP-B Current Condition Start: 06/03/19 17:42 Freq: Status: Active Protocol: Document 06/09/19 15:23 [facility] (Rec: 06/09/19 16:04 [facility] [id number]) Current Condition History of Current Condition Onset Date March 16 History of Current Condition Pt reports suffering CVA with affect of R side with reports of being almost paralyzed. He returned home mid March and has been doing HH PT, OT, & SENIOR BIOINFORMATICS SPECIALIST and RN visits until 1.5 weeks ago. Pt reports he is going to just do PT. Pt reports he has improved with RUE function. except with shoulder elevation. Pt reports history of dislocation of R shoulder a few years ago, which he thinks is part of this. Pt reports he can swallow normally & speak and understand and no issues with memory. Pt reports his main complaint is his stamina is very poor. Pt reports he feels like his balance has gotten quite a bit better. Pt reports he has been climbign a grassy knoll outside his house. Pt reports last fall was 4 weeks ago when he was working in the garden and he took a big step to side and had to let himself to ground d/t leg not being able to hold him. Reports fall on 2nd day he came home when he bent down to pick something from floor when holding onto toilet lid and toilet lid broke. THese are the only 2 falls since stroke. Pt reports he has been using a walking stick when he is outside of the house, which is new since the stroke. Pt reports prior to stroke he did a lot of hiking, and biking. Reports he rides a stationary bike at home and walks on the treadmill about 15 min/.5 miles but has to do it every other day or so d/t long recouperation. Reports speed is much slower Treatment Goals Patient/Caregiver Goals Pt wants to return to riding his bike; recover stamina so he can exercise a little more; play golf, return to gardening & yard work fully; be able to descend stairs reciprocally without rail without balance PT-OP-C Subjective Start: 06/03/19 17:42 Freq: Status: Active Protocol: Document 08/28/19 14:33 [facility] (Rec: 08/28/19 15:51 [facility] [id number]) OP-PT Subjective Patient Comments Patient Comments Pt reports exercises are going well PT-OP-E Functional Tests Start: 06/03/19 17:42 Freq: Status: Active Protocol: Document 06/09/19 15:23 [facility] (Rec: 06/11/19 14:47 [facility] [id number]) Functional Tests 6 Minute Walk Test Distance 993 ft Device Used none Dynamic Gait Index (DGI) Score 18 DGI Impairment Rating 20 to <40% Impaired (Score 15- 19) Functional Gait Assessment Score 16 Functional Gait Assessment Impairment 40 to <60% Impaired (Score 13- Rating 18) PT-OP-G Mobility & Gait Start: 06/03/19 17:42 Freq: Status: Active Protocol: Document 06/09/19 15:23 [facility] (Rec: 06/11/19 14:47 [facility] [id number]) OP Mobility Evaluation Bed Mobility Supine to and from Sit Inc difficulty with getting up /down PT-OP-M Strength Start: 06/03/19 17:42 Freq: Status: Active Protocol: Document 06/09/19 15:23 [facility] (Rec: 06/09/19 16:04 [facility] [id number]) Hip Strength Hip Manual Muscle Testing Left Flexion (L2) 5 Normal Extension (S1) 4+ Good+ Abduction 4+ Good+ Adduction 4 Good External Rotation 4+ Good+ Internal Rotation 5 Normal Right Flexion (L2) 4 Good Extension (S1) 4- Good- Abduction 3+ Fair+ Adduction 4- Good- External Rotation 3+ Fair+ Internal Rotation 5 Normal Knee Strength Knee Manual Muscle Testing Left Flexion (S2) 5 Normal Extension (L3) 5 Normal Right Flexion (S2) 4+ Good+ Extension (L3) 4 Good Ankle/Foot Strength Ankle and Foot Manual Muscle Testing Left Dorsiflexion (L4) 5 Normal Plantarflexion (S1) 5 Normal Inversion 5 Normal Eversion (S1) 5 Normal Right Dorsiflexion (L4) 4 Good Plantarflexion (S1) 3+ Fair+ Inversion 4 Good Eversion (S1) 4- Good- Comments PF tested standing PT-OP-Q Treatments Start: 06/03/19 17:42 Freq: Status: Active Protocol: Document 08/28/19 14:33 [facility] (Rec: 08/28/19 15:51 [facility] [id number]) Cardio Equipment Elliptical Duration (Minutes) 6 Resistance 8 Gym Equipment Shuttle Balance red clips Comments fwd & sdie: WBOS, NBOS & staggered stance B fwd & sdie WBOS with balloon volley Therapeutic Exercises Standing Exercises gait at wall Side bilateral Reps/Minutes 15 sec hold heel raises Standing Exercise Name single leg Side bilateral Reps/Minutes 10x2 november Standing Exercise Name to side w/ elbow to knee Side bilateral Reps/Minutes 10 Other Exercises hurdles Other Exercise Name fwd & back in quadruped Side bilateral Reps/Minutes 10 ea hip abd Other Exercise Name fire hyrants Side bilateral Reps/Minutes 10 hip ext Other Exercise Name quadruped Side bilateral Reps/Minutes 10 Neuro Re-Education Treatment Other Activities PT assist PNF Comments 1. rhythmic initiation pelvic post dep & ant elevation 2. COI post dep & ant elevation progressed to LE 3. concentric reversals with pelvic & LE patterns 4. mass flex & ext COI PT-OP-T Assessment and Plan Start: 06/03/19 17:42 Freq: Status: Active Protocol: Document 08/28/19 14:33 [facility] (Rec: 08/28/19 15:51 [facility] [id number]) Physical Therapy Assessment Goals strength Short Term Goal (STG) Pt will be indep with HEP. STG Duration achieved Fishing Tool Supervisor Goal (LTG) Pt will have at least 4+/5 LE strength B in order to allow him to return to his typical activities. LTG Duration 09/08/19 functional activity Short Term Goal (STG) Pt will be able to ascend and descend stairs reciprocallyw ithout rails safely. STG Duration achieved Fishing Tool Supervisor Goal (LTG) Pt will be able to return to riding his bike safely. LTG Duration 09/08/19 activity Short Term Goal (STG) Pt will be able to return to golfing STG Duration 07/29/19 Detention Goal (LTG) Pt will be able to fully return to participating in yard word and gardening. LTG Duration achieved balance Impairment DGI 18, FGA 16 Short Term Goal (STG) Pt will improved DGI score to 20/30 to dec risk for falls STG Duration achieved Fishing Tool Supervisor Goal (LTG) Pt will improve score of FGA to 23/30 or greater to dec risk for falls LTG Duration achieved Assessment Summary Assessment Pt improved with performance of quadruped exercises with just cueing for maintaining trunk stability and decreasing speed. Pt improving with balance on unstable surface. Physical Therapy Plan Frequency and Duration Frequency of Treatment 2x/Week Duration of Treatment 3 months Plan of Care Start Date 06/09/19 Plan of Care End Date 09/08/19 Next Visit Focus/Plan Next Note Type Treatment Note Next Visit Plan cont to work on ability to lift up/over bike
--- NOTE | 2019-09-04 15:14 | PT.OTN ---
Current Diagnoses Cerebral infarction, unspecified (09/04/19) Physical Therapy Treatment Note PT-OP-A Visit Information Start: 06/03/19 17:42 Freq: Status: Active Protocol: Document 09/04/19 14:33 [facility] (Rec: 09/04/19 15:14 [facility] [id number]) Out-Patient Physical Therapy Visit Information Visit Information Visit Type Treatment Note Visit Start Time 14:30 Visit Stop Time 15:12 Total Visit Minutes 42 Visit Number 18 Number of ACUTE CARE REGISTERED NURSE Visits 0 PT-OP-B Current Condition Start: 06/03/19 17:42 Freq: Status: Active Protocol: Document 06/09/19 15:23 [facility] (Rec: 06/09/19 16:04 [facility] [id number]) Current Condition History of Current Condition Onset Date March 16 History of Current Condition Pt reports suffering CVA with affect of R side with reports of being almost paralyzed. He returned home mid March and has been doing HH PT, OT, & GERIATRIC NURSE PRACTITIONER and RN visits until 1.5 weeks ago. Pt reports he is going to just do PT. Pt reports he has improved with RUE function. except with shoulder elevation. Pt reports history of dislocation of R shoulder a few years ago, which he thinks is part of this. Pt reports he can swallow normally & speak and understand and no issues with memory. Pt reports his main complaint is his stamina is very poor. Pt reports he feels like his balance has gotten quite a bit better. Pt reports he has been climbign a grassy knoll outside his house. Pt reports last fall was 4 weeks ago when he was working in the garden and he took a big step to side and had to let himself to ground d/t leg not being able to hold him. Reports fall on 2nd day he came home when he bent down to pick something from floor when holding onto toilet lid and toilet lid broke. THese are the only 2 falls since stroke. Pt reports he has been using a walking stick when he is outside of the house, which is new since the stroke. Pt reports prior to stroke he did a lot of hiking, and biking. Reports he rides a stationary bike at home and walks on the treadmill about 15 min/.5 miles but has to do it every other day or so d/t long recouperation. Reports speed is much slower Treatment Goals Patient/Caregiver Goals Pt wants to return to riding his bike; recover stamina so he can exercise a little more; play golf, return to gardening & yard work fully; be able to descend stairs reciprocally without rail without balance PT-OP-C Subjective Start: 06/03/19 17:42 Freq: Status: Active Protocol: Document 09/04/19 14:33 [facility] (Rec: 09/04/19 15:14 [facility] [id number]) OP-PT Subjective Patient Comments Patient Comments Pt reports he feels ready for next session to be d/c and he will cont exercises on his own . PT-OP-E Functional Tests Start: 06/03/19 17:42 Freq: Status: Active Protocol: Document 06/09/19 15:23 [facility] (Rec: 06/11/19 14:47 [facility] [id number]) Functional Tests 6 Minute Walk Test Distance 993 ft Device Used none Dynamic Gait Index (DGI) Score 18 DGI Impairment Rating 20 to <40% Impaired (Score 15- 19) Functional Gait Assessment Score 16 Functional Gait Assessment Impairment 40 to <60% Impaired (Score 13- Rating 18) PT-OP-G Mobility & Gait Start: 06/03/19 17:42 Freq: Status: Active Protocol: Document 06/09/19 15:23 [facility] (Rec: 06/11/19 14:47 [facility] [id number]) OP Mobility Evaluation Bed Mobility Supine to and from Sit Inc difficulty with getting up /down PT-OP-M Strength Start: 06/03/19 17:42 Freq: Status: Active Protocol: Document 06/09/19 15:23 [facility] (Rec: 06/09/19 16:04 [facility] [id number]) Hip Strength Hip Manual Muscle Testing Left Flexion (L2) 5 Normal Extension (S1) 4+ Good+ Abduction 4+ Good+ Adduction 4 Good External Rotation 4+ Good+ Internal Rotation 5 Normal Right Flexion (L2) 4 Good Extension (S1) 4- Good- Abduction 3+ Fair+ Adduction 4- Good- External Rotation 3+ Fair+ Internal Rotation 5 Normal Knee Strength Knee Manual Muscle Testing Left Flexion (S2) 5 Normal Extension (L3) 5 Normal Right Flexion (S2) 4+ Good+ Extension (L3) 4 Good Ankle/Foot Strength Ankle and Foot Manual Muscle Testing Left Dorsiflexion (L4) 5 Normal Plantarflexion (S1) 5 Normal Inversion 5 Normal Eversion (S1) 5 Normal Right Dorsiflexion (L4) 4 Good Plantarflexion (S1) 3+ Fair+ Inversion 4 Good Eversion (S1) 4- Good- Comments PF tested standing PT-OP-Q Treatments Start: 06/03/19 17:42 Freq: Status: Active Protocol: Document 09/04/19 14:33 [facility] (Rec: 09/04/19 15:14 [facility] [id number]) Cardio Equipment Elliptical Duration (Minutes) 7 Resistance 8 Gym Equipment Sport Cord red Exercise Details wt shifts w.step then walking Reps/Duration 10 ea B Therapeutic Exercises Standing Exercises gait at wall Comments stopped dt achilles pain Calf Stretch Standing Exercise Name on stair Side bilateral Reps/Minutes 30 sec Other Exercises hurdles Other Exercise Name fwd & back in quadruped Side bilateral Reps/Minutes 10 ea hip abd Other Exercise Name fire hyrants Side bilateral Reps/Minutes 10 hip ext Other Exercise Name quadruped Side bilateral Reps/Minutes 10 Gait Training Gait Activity walking Description resisted w/ dowel Distance/Duration 4x50ft Comments then 2x50ft w/ push off focus wt shift Description in mirror Neuro Re-Education Treatment Balance Activities SLS Details B in mirror Other Activities PT assist PNF Comments 1. rhythmic initiation pelvic post dep & ant elevation 2. COI post dep & ant elevation progressed to LE 3. concentric reversals with pelvic & LE patterns PT-OP-T Assessment and Plan Start: 06/03/19 17:42 Freq: Status: Active Protocol: Document 09/04/19 14:33 [facility] (Rec: 09/04/19 15:14 [facility] [id number]) Physical Therapy Assessment Goals strength Short Term Goal (STG) Pt will be indep with HEP. STG Duration achieved Nursing Home Goal (LTG) Pt will have at least 4+/5 LE strength B in order to allow him to return to his typical activities. LTG Duration 09/08/19 functional activity Short Term Goal (STG) Pt will be able to ascend and descend stairs reciprocallyw ithout rails safely. STG Duration achieved Animal Geneticist Goal (LTG) Pt will be able to return to riding his bike safely. LTG Duration 09/08/19 activity Short Term Goal (STG) Pt will be able to return to golfing STG Duration 07/29/19 Nursing Home Goal (LTG) Pt will be able to fully return to participating in yard word and gardening. LTG Duration achieved balance Impairment DGI 18, FGA 16 Short Term Goal (STG) Pt will improved DGI score to 20/30 to dec risk for falls STG Duration achieved Nursing Home Goal (LTG) Pt will improve score of FGA to 23/30 or greater to dec risk for falls LTG Duration achieved Assessment Summary Assessment Pt noted some achilles tightness with gait at wall exercise so it was stopped. He was able to improve his gait with work on push off and wt shift and acceptance in mirror & with dowel & sport cord. He does fatigue with this work though. Physical Therapy Plan Frequency and Duration Frequency of Treatment 2x/Week Duration of Treatment 3 months Plan of Care Start Date 06/09/19 Plan of Care End Date 09/08/19 Next Visit Focus/Plan Next Note Type Discharge Summary Next Visit Plan cont to work on ability to lift up/over bike
--- NOTE | 2019-09-11 15:15 | PT.OTN ---
Current Diagnoses Cerebral infarction, unspecified (09/11/19) Physical Therapy Treatment Note PT-OP-A Visit Information Start: 06/03/19 17:42 Freq: Status: Active Protocol: Document 09/11/19 14:34 [facility] (Rec: 09/11/19 15:15 [facility] [id number]) Out-Patient Physical Therapy Visit Information Visit Information Visit Type Discharge Summary Visit Start Time 14:31 Visit Stop Time 15:11 Total Visit Minutes 40 Visit Number 19 Number of HEAD TENNIS COACH Visits 0 PT-OP-B Current Condition Start: 06/03/19 17:42 Freq: Status: Active Protocol: Document 06/09/19 15:23 [facility] (Rec: 06/09/19 16:04 [facility] [id number]) Current Condition History of Current Condition Onset Date March 16 History of Current Condition Pt reports suffering CVA with affect of R side with reports of being almost paralyzed. He returned home mid March and has been doing HH PT, OT, & SPINNING FRAME CLEANER and RN visits until 1.5 weeks ago. Pt reports he is going to just do PT. Pt reports he has improved with RUE function. except with shoulder elevation. Pt reports history of dislocation of R shoulder a few years ago, which he thinks is part of this. Pt reports he can swallow normally & speak and understand and no issues with memory. Pt reports his main complaint is his stamina is very poor. Pt reports he feels like his balance has gotten quite a bit better. Pt reports he has been climbign a grassy knoll outside his house. Pt reports last fall was 4 weeks ago when he was working in the garden and he took a big step to side and had to let himself to ground d/t leg not being able to hold him. Reports fall on 2nd day he came home when he bent down to pick something from floor when holding onto toilet lid and toilet lid broke. THese are the only 2 falls since stroke. Pt reports he has been using a walking stick when he is outside of the house, which is new since the stroke. Pt reports prior to stroke he did a lot of hiking, and biking. Reports he rides a stationary bike at home and walks on the treadmill about 15 min/.5 miles but has to do it every other day or so d/t long recouperation. Reports speed is much slower Treatment Goals Patient/Caregiver Goals Pt wants to return to riding his bike; recover stamina so he can exercise a little more; play golf, return to gardening & yard work fully; be able to descend stairs reciprocally without rail without balance PT-OP-C Subjective Start: 06/03/19 17:42 Freq: Status: Active Protocol: Document 09/11/19 14:34 [facility] (Rec: 09/11/19 15:15 [facility] [id number]) OP-PT Subjective Patient Comments Patient Comments Ready for dc. PT-OP-E Functional Tests Start: 06/03/19 17:42 Freq: Status: Active Protocol: Document 06/09/19 15:23 [facility] (Rec: 06/11/19 14:47 [facility] [id number]) Functional Tests 6 Minute Walk Test Distance 993 ft Device Used none Dynamic Gait Index (DGI) Score 18 DGI Impairment Rating 20 to <40% Impaired (Score 15- 19) Functional Gait Assessment Score 16 Functional Gait Assessment Impairment 40 to <60% Impaired (Score 13- Rating 18) PT-OP-G Mobility & Gait Start: 06/03/19 17:42 Freq: Status: Active Protocol: Document 06/09/19 15:23 [facility] (Rec: 06/11/19 14:47 [facility] [id number]) OP Mobility Evaluation Bed Mobility Supine to and from Sit Inc difficulty with getting up /down PT-OP-M Strength Start: 06/03/19 17:42 Freq: Status: Active Protocol: Document 09/11/19 14:34 [facility] (Rec: 09/11/19 15:15 [facility] [id number]) Hip Strength Hip Manual Muscle Testing Left Flexion (L2) 5 Normal Extension (S1) 5 Normal Abduction 5 Normal Adduction 4 Good External Rotation 5 Normal Internal Rotation 5 Normal Right Flexion (L2) 4+ Good+ Extension (S1) 4 Good Abduction 4 Good Adduction 4+ Good+ External Rotation 4+ Good+ Internal Rotation 5 Normal Knee Strength Knee Manual Muscle Testing Left Flexion (S2) 5 Normal Extension (L3) 5 Normal Right Flexion (S2) 4+ Good+ Extension (L3) 4+ Good+ Ankle/Foot Strength Ankle and Foot Manual Muscle Testing Left Dorsiflexion (L4) 5 Normal Plantarflexion (S1) 5 Normal Inversion 5 Normal Eversion (S1) 5 Normal Right Dorsiflexion (L4) 4+ Good+ Plantarflexion (S1) 5 Normal Inversion 5 Normal Eversion (S1) 5 Normal Comments PF tested standing PT-OP-Q Treatments Start: 06/03/19 17:42 Freq: Status: Active Protocol: Document 09/11/19 14:34 [facility] (Rec: 09/11/19 15:15 [facility] [id number]) Cardio Equipment Elliptical Duration (Minutes) 6 Resistance 9 Gym Equipment Shuttle Balance red clips Comments fwd & sdie: WBOS, NBOS & staggered stance B w/balloon volley Therapeutic Ball bike Ball Size/Color silver Body Position Sitting Reps/Duration 4 minutes Neuro Re-Education Treatment Other Activities PT assist PNF Comments 1. rhythmic initiation pelvic post dep & ant elevation 2. COI post dep & ant elevation progressed to LE 3. concentric reversals with pelvic & LE patterns PT-OP-T Assessment and Plan Start: 06/03/19 17:42 Freq: Status: Active Protocol: Document 09/11/19 14:34 [facility] (Rec: 09/11/19 15:15 [facility] [id number]) Physical Therapy Assessment Goals strength Short Term Goal (STG) Pt will be indep with HEP. STG Duration achieved [facility] Goal (LTG) Pt will have at least 4+/5 LE strength B in order to allow him to return to his typical activities. LTG Duration mostly achieved functional activity Short Term Goal (STG) Pt will be able to ascend and descend stairs reciprocallyw ithout rails safely. STG Duration achieved Dowel Pin Man Goal (LTG) Pt will be able to return to riding his bike safely. LTG Duration achieved with only difficulty with on/off activity Short Term Goal (STG) Pt will be able to return to golfing STG Duration has not tried d/t weather [facility] Goal (LTG) Pt will be able to fully return to participating in yard word and gardening. LTG Duration achieved balance Impairment DGI 18, FGA 16 Short Term Goal (STG) Pt will improved DGI score to 20/30 to dec risk for falls STG Duration achieved [facility]cf Goal (LTG) Pt will improve score of FGA to 23/30 or greater to dec risk for falls LTG Duration achieved Assessment Summary Assessment Pt has met most goals and will cont to progress his strength with cont HEP at home which he is indep with. He has made excellent progress with his balance and overall strength. Physical Therapy Plan Discharge Physical Therapy Discharge Reasons Goals Met
== END 2019-09-15 11:09 ==
LOC: PHYS 14:30
PROVIDERS: PCP Internal Medicine; Visit Provider Internal Medicine
DX: I63.9 Cerebral infarction, unspecified (principal)
CPT/HCPCS: 97110; 97112; 97116; 97140; 97162

== ENCOUNTER → 2019-10-31 10:20 | Outpatient (CLI) | payer BC, SELFPAY ==
[2019-03-16 11:13] VITALS: BMI 29.8
[2019-10-31 11:00] LABS: Hemoglobin A1C% w Est Avg Glu 5.7 % (4.0-6.0)
[2019-10-31 11:38] LABS: Blood Urea Nitrogen 19 mg/dL (9-20); Calcium 9.6 mg/dL (8.4-10.2); Carbon Dioxide 28 mmol/L (22-32); Chloride 105 mmol/L (98-107); Estimated Glomerular Filt Rate > 60.0 mL/min (>60); Glucose 108 mg/dL (80-110); HEMOLYSIS < 15 (0-50); Potassium 3.8 mmol/L (3.4-5.1); Sodium 143 mmol/L (137-145)
== END ==
PROVIDERS: Family Provider Internal Medicine Cardiovascular Disease; PCP Internal Medicine; Referring Provider Internal Medicine; Visit Provider Internal Medicine
DX: E11.9 Type 2 diabetes mellitus without complications (principal); I10 Essential (primary) hypertension
CPT/HCPCS: 36415; 80048; 83036

== ENCOUNTER → 2020-04-27 08:48 | Outpatient (CLI) | payer BC, SELFPAY ==
[2019-03-16 11:13] VITALS: BMI 29.8
[2020-04-27 09:40] LABS: Hemoglobin A1C% w Est Avg Glu 5.7 % (4.0-6.0)
[2020-04-27 09:52] LABS: Alanine Aminotransferase 27 IU/L (<50); Albumin 4.2 g/dL (3.5-5.0); Albumin Globulin Ratio 1.4 (1.0-2.8); Alkaline Phosphatase 61 U/L (38-126); Aspartate Aminotransferase 26 IU/L (17-59); Bilirubin Total 1.2 mg/dL (0.2-1.3); Blood Urea Nitrogen 18 mg/dL (9-20); Calcium 9.1 mg/dL (8.4-10.2); Carbon Dioxide 24 mmol/L (22-32); Chloride 107 mmol/L (98-107); Cholesterol 117 mg/dL (140-199); Estimated Glomerular Filt Rate > 60.0 mL/min (>60); Glucose 129 mg/dL (80-110); HDL Cholesterol 50 mg/dL (40-60); HEMOLYSIS < 15 (0-50); LDL Cholesterol Calculated 59 mg/dL (<100); Potassium 3.9 mmol/L (3.4-5.1); Sodium 139 mmol/L (137-145); Total Protein 7.2 g/dL (6.3-8.2); Triglycerides 42 mg/dL (35-150)
== END ==
PROVIDERS: Family Provider Internal Medicine Cardiovascular Disease; PCP Internal Medicine; Referring Provider Internal Medicine; Visit Provider Internal Medicine
DX: E11.9 Type 2 diabetes mellitus without complications (principal); E78.2 Mixed hyperlipidemia; I10 Essential (primary) hypertension
CPT/HCPCS: 36415; 80053; 80061; 83036

== ENCOUNTER → 2020-10-22 09:42 | Outpatient (CLI) | payer BC, SELFPAY ==
[2019-03-16 11:13] VITALS: BMI 29.8
[2020-10-22 11:04] LABS: Hemoglobin A1C% w Est Avg Glu 6.4 % (4.0-6.0)
[2020-10-22 11:18] LABS: Alanine Aminotransferase 36 IU/L (<50); Albumin 4.1 g/dL (3.5-5.0); Albumin Globulin Ratio 1.3 (1.0-2.8); Alkaline Phosphatase 59 U/L (38-126); Aspartate Aminotransferase 33 IU/L (17-59); BUN Creatinine Ratio 17.9 (6-22); Bilirubin Total 1.4 mg/dL (0.2-1.3); Blood Urea Nitrogen 19 mg/dL (9-20); Calcium 9.2 mg/dL (8.4-10.2); Carbon Dioxide 30 mmol/L (22-32); Chloride 105 mmol/L (98-107); Cholesterol 121 mg/dL (140-199); Estimated Glomerular Filt Rate > 60.0 mL/min (>60); Globulin 3.1 g/dL (1.7-4.1); Glucose 140 mg/dL (80-110); HDL Cholesterol 48 mg/dL (40-60); HEMOLYSIS < 15 (0-50); LDL Cholesterol Calculated 56 mg/dL (<100); Potassium 3.9 mmol/L (3.4-5.1); Sodium 140 mmol/L (137-145); Total Protein 7.2 g/dL (6.3-8.2); Triglycerides 86 mg/dL (35-150)
[2020-10-22 11:46] LABS: Prostate Specific Antigen Scrn 1.01 ng/mL (0.1-4.0)
== END ==
PROVIDERS: Family Provider Internal Medicine Cardiovascular Disease; PCP Internal Medicine; Referring Provider Internal Medicine; Visit Provider Internal Medicine
DX: E11.9 Type 2 diabetes mellitus without complications (principal); E78.2 Mixed hyperlipidemia; I10 Essential (primary) hypertension; Z12.5 Encounter for screening for malignant neoplasm of prostate
CPT/HCPCS: 36415; 80053; 80061; 83036; G0103

== ENCOUNTER → 2021-04-26 09:53 | Outpatient (CLI) | payer BC, SELFPAY ==
[2019-03-16 11:13] VITALS: BMI 29.8
[2021-04-26 12:28] LABS: Alanine Aminotransferase 25 IU/L (<50); Albumin Globulin Ratio 1.3 (1.0-2.8); Alkaline Phosphatase 51 U/L (38-126); Aspartate Aminotransferase 26 IU/L (17-59); BUN Creatinine Ratio 15.7 (6-22); Blood Urea Nitrogen 17 mg/dL (9-20); Calcium 9.3 mg/dL (8.4-10.2); Carbon Dioxide 25 mmol/L (22-32); Chloride 106 mmol/L (98-107); Cholesterol 161 mg/dL (140-199); Estimated Glomerular Filt Rate > 60.0 mL/min (>60); Globulin 3.1 g/dL (1.7-4.1); Glucose 129 mg/dL (80-110); HDL Cholesterol 47 mg/dL (40-60); HEMOLYSIS < 15 (0-50); LDL Cholesterol Calculated 97 mg/dL (<100); Potassium 3.8 mmol/L (3.4-5.1); Sodium 140 mmol/L (137-145); Total Protein 7.1 g/dL (6.3-8.2); Triglycerides 83 mg/dL (35-150)
== END ==
PROVIDERS: Family Provider Internal Medicine Cardiovascular Disease; PCP Internal Medicine; Referring Provider Internal Medicine; Visit Provider Internal Medicine
DX: E11.9 Type 2 diabetes mellitus without complications (principal); E78.2 Mixed hyperlipidemia; I10 Essential (primary) hypertension
CPT/HCPCS: 36415; 80053; 80061; 83036

== ENCOUNTER → 2021-10-25 10:19 | Outpatient (CLI) | payer BC, SELFPAY ==
[2019-03-16 11:13] VITALS: BMI 29.8
[2021-10-25 11:52] LABS: Hemoglobin A1C% w Est Avg Glu 6.2 % (4.0-6.0)
[2021-10-25 12:39] LABS: BUN Creatinine Ratio 16.5 (6-22); Blood Urea Nitrogen 18 mg/dL (9-20); Calcium 9.2 mg/dL (8.4-10.2); Carbon Dioxide 23 mmol/L (22-32); Chloride 107 mmol/L (98-107); Estimated Glomerular Filt Rate > 60.0 mL/min (>60); Glucose 132 mg/dL (80-110); HEMOLYSIS < 15 (0-50); Sodium 140 mmol/L (137-145)
== END ==
PROVIDERS: Family Provider Internal Medicine Cardiovascular Disease; PCP Internal Medicine; Referring Provider Internal Medicine; Visit Provider Internal Medicine
DX: E11.9 Type 2 diabetes mellitus without complications (principal); I10 Essential (primary) hypertension
CPT/HCPCS: 36415; 80048; 83036

== ENCOUNTER → 2022-04-24 09:24 | Outpatient (CLI) | payer BC, SELFPAY ==
[2019-03-16 11:13] VITALS: BMI 29.8
[2022-04-24 10:17] LABS: Hemoglobin A1C% w Est Avg Glu 6.3 % (4.0-6.0)
[2022-04-24 10:27] LABS: Alanine Aminotransferase 26 IU/L (<50); Albumin 4.1 g/dL (3.5-5.0); Albumin Globulin Ratio 1.5 (1.0-2.8); Alkaline Phosphatase 45 U/L (38-126); Aspartate Aminotransferase 24 IU/L (17-59); BUN Creatinine Ratio 16.2 (6-22); Bilirubin Total 1.1 mg/dL (0.2-1.3); Blood Urea Nitrogen 17 mg/dL (9-20); Calcium 8.8 mg/dL (8.4-10.2); Carbon Dioxide 22 mmol/L (22-32); Chloride 109 mmol/L (98-107); Cholesterol 168 mg/dL (140-199); Estimated Glomerular Filt Rate > 60 mL/min (>60); Globulin 2.7 g/dL (1.7-4.1); Glucose 142 mg/dL (80-110); HDL Cholesterol 48 mg/dL (40-60); HEMOLYSIS < 15 (0-50); LDL Cholesterol Calculated 104 mg/dL (<100); Sodium 139 mmol/L (137-145); Total Protein 6.8 g/dL (6.3-8.2); Triglycerides 82 mg/dL (35-150)
== END ==
PROVIDERS: Family Provider Internal Medicine Cardiovascular Disease; PCP Internal Medicine; Referring Provider Internal Medicine; Visit Provider Internal Medicine
DX: E11.9 Type 2 diabetes mellitus without complications (principal); E78.2 Mixed hyperlipidemia; I10 Essential (primary) hypertension
CPT/HCPCS: 36415; 80053; 80061; 83036

== ENCOUNTER → 2022-10-30 09:14 | Outpatient (CLI) | payer BC, SELFPAY ==
[2019-03-16 11:13] VITALS: BMI 29.8
[2022-10-30 10:33] LABS: Hemoglobin A1C% w Est Avg Glu 6.9 % (4.0-6.0)
[2022-10-30 10:47] LABS: HEMOLYSIS < 15 (0-50)
[2022-10-30 10:57] LABS: Alanine Aminotransferase 41 IU/L (<50); Albumin Globulin Ratio 1.2 (1.0-2.8); Alkaline Phosphatase 57 U/L (38-126); Aspartate Aminotransferase 26 IU/L (17-59); BUN Creatinine Ratio 16.7 (6-22); Bilirubin Total 1.2 mg/dL (0.2-1.3); Blood Urea Nitrogen 17 mg/dL (9-20); Carbon Dioxide 24 mmol/L (22-32); Chloride 105 mmol/L (98-107); Cholesterol 192 mg/dL (140-199); Estimated Glomerular Filt Rate > 60 mL/min (>60); Globulin 3.3 g/dL (1.7-4.1); Glucose 158 mg/dL (80-110); HDL Cholesterol 42 mg/dL (40-60); LDL Cholesterol Calculated 130 mg/dL (<100); Potassium 3.7 mmol/L (3.4-5.1); Sodium 138 mmol/L (137-145); Total Protein 7.3 g/dL (6.3-8.2); Triglycerides 98 mg/dL (35-150)
[2022-10-30 11:29] LABS: Prostate Specific Antigen Scrn 1.39 ng/mL (0.1-4.0)
[2022-10-30 12:52] LABS: Creatinine Urine Random 121.2 mg/dL
[2022-10-30 12:58] LABS: Microalbumin Urine Random < 0.6 mg/dL (0-1.6)
== END ==
PROVIDERS: Family Provider Internal Medicine Cardiovascular Disease; PCP Internal Medicine; Referring Provider Internal Medicine; Visit Provider Internal Medicine
DX: E11.9 Type 2 diabetes mellitus without complications (principal); E78.2 Mixed hyperlipidemia; I10 Essential (primary) hypertension; Z12.5 Encounter for screening for malignant neoplasm of prostate
CPT/HCPCS: 36415; 80053; 80061; 82043; 82570; 83036; G0103

== ENCOUNTER → 2023-03-01 08:34 | Outpatient (CLI) | payer BC, SELFPAY ==
[2019-03-16 11:13] VITALS: BMI 29.8
[2023-03-01 10:02] LABS: Alanine Aminotransferase 30 IU/L (<50); Albumin 4.1 g/dL (3.5-5.0); Albumin Globulin Ratio 1.3 (1.0-2.8); Alkaline Phosphatase 49 U/L (38-126); Aspartate Aminotransferase 28 IU/L (17-59); BUN Creatinine Ratio 17.9 (6-22); Bilirubin Total 0.8 mg/dL (0.2-1.3); Blood Urea Nitrogen 19 mg/dL (9-20); Calcium 8.8 mg/dL (8.4-10.2); Carbon Dioxide 24 mmol/L (22-32); Chloride 108 mmol/L (98-107); Estimated Glomerular Filt Rate > 60 mL/min (>60); Globulin 3.2 g/dL (1.7-4.1); Glucose 136 mg/dL (80-110); HEMOLYSIS < 15 (0-50); Potassium 3.8 mmol/L (3.4-5.1); Sodium 140 mmol/L (137-145); Total Protein 7.3 g/dL (6.3-8.2)
[2023-03-02 05:42] LABS: Labcorp Hemoglobin (Hb) A1c 6.5 % (4.8-5.6)
== END ==
PROVIDERS: Family Provider Internal Medicine Cardiovascular Disease; PCP Internal Medicine; Referring Provider Internal Medicine; Visit Provider Internal Medicine
DX: E11.9 Type 2 diabetes mellitus without complications (principal); E78.2 Mixed hyperlipidemia; I10 Essential (primary) hypertension
CPT/HCPCS: 36415; 80053; 83036

== ENCOUNTER → 2023-08-24 08:34 | Outpatient (CLI) | payer MEDICARE, BC, SELFPAY ==
[2019-03-16 11:13] VITALS: BMI 29.8
[2023-08-24 10:23] LABS: Hemoglobin A1C% w Est Avg Glu 6.6 % (4.0-6.0)
[2023-08-24 10:41] LABS: Alanine Aminotransferase 29 IU/L (<50); Albumin 3.9 g/dL (3.5-5.0); Albumin Globulin Ratio 1.3 (1.0-2.8); Alkaline Phosphatase 47 U/L (38-126); Aspartate Aminotransferase 26 IU/L (17-59); BUN Creatinine Ratio 14.8 (6-22); Blood Urea Nitrogen 17 mg/dL (9-20); Calcium 9.5 mg/dL (8.4-10.2); Carbon Dioxide 28 mmol/L (22-32); Chloride 104 mmol/L (98-107); Cholesterol 168 mg/dL (140-199); Estimated Glomerular Filt Rate > 60 mL/min (>60); Globulin 2.9 g/dL (1.7-4.1); Glucose 142 mg/dL (80-110); HDL Cholesterol 45 mg/dL (40-60); HEMOLYSIS < 15 (0-50); LDL Cholesterol Calculated 110 mg/dL (<100); Potassium 4.1 mmol/L (3.4-5.1); Sodium 139 mmol/L (137-145); Total Protein 6.8 g/dL (6.3-8.2); Triglycerides 67 mg/dL (35-150)
== END ==
PROVIDERS: Family Provider Internal Medicine Cardiovascular Disease; PCP Internal Medicine; Referring Provider Internal Medicine; Visit Provider Internal Medicine
DX: E11.9 Type 2 diabetes mellitus without complications (principal); I10 Essential (primary) hypertension; E78.2 Mixed hyperlipidemia
CPT/HCPCS: 36415; 80053; 80061; 83036

== ENCOUNTER → 2024-01-22 09:02 | Outpatient (CLI) | payer MEDICARE, BC, SELFPAY ==
[2019-03-16 11:13] VITALS: BMI 29.8
[2024-01-22 10:37] LABS: Alanine Aminotransferase 32 IU/L (<50); Albumin 4.2 g/dL (3.5-5.0); Albumin Globulin Ratio 1.4 (1.0-2.8); Alkaline Phosphatase 55 U/L (38-126); Aspartate Aminotransferase 27 IU/L (17-59); Bilirubin Total 0.9 mg/dL (0.2-1.3); Blood Urea Nitrogen 19 mg/dL (9-20); Calcium 9.1 mg/dL (8.4-10.2); Carbon Dioxide 26 mmol/L (22-32); Chloride 108 mmol/L (98-107); Estimated Glomerular Filt Rate > 60 mL/min (>60); Globulin 2.9 g/dL (1.7-4.1); Glucose 171 mg/dL (80-110); Potassium 4.2 mmol/L (3.4-5.1); Sodium 141 mmol/L (137-145); Total Protein 7.1 g/dL (6.3-8.2)
[2024-01-22 10:39] LABS: Hemoglobin A1C% w Est Avg Glu 7.1 % (4.0-6.0)
[2024-01-22 10:41] LABS: HEMOLYSIS < 15 (0-50)
[2024-01-22 11:10] LABS: Prostate Specific Antigen Scrn 1.36 ng/mL (0.1-4.0)
[2024-01-22 12:01] LABS: Creatinine Urine Random 113.7 mg/dL
[2024-01-22 12:03] LABS: Microalbumin Urine Random < 0.6 mg/dL (0-1.6)
== END ==
PROVIDERS: Family Provider Internal Medicine Cardiovascular Disease; PCP Internal Medicine; Referring Provider Internal Medicine; Visit Provider Internal Medicine
DX: Z12.5 Encounter for screening for malignant neoplasm of prostate (principal); E11.9 Type 2 diabetes mellitus without complications; I10 Essential (primary) hypertension; E78.2 Mixed hyperlipidemia
CPT/HCPCS: 36415; 80053; 82043; 82570; 83036; G0103

== ENCOUNTER → 2024-05-28 11:38 | Outpatient (CLI) | payer MEDICARE, BC, SELFPAY ==
[2019-03-16 11:13] VITALS: BMI 29.8
[2024-05-28 13:46] LABS: BUN Creatinine Ratio 20.4 (6-22); Blood Urea Nitrogen 22 mg/dL (9-20); Calcium 9.4 mg/dL (8.4-10.2); Carbon Dioxide 23 mmol/L (22-32); Chloride 107 mmol/L (98-107); Estimated Glomerular Filt Rate > 60 mL/min (>60); Glucose 130 mg/dL (80-110); HEMOLYSIS < 15 (0-50); Potassium 4.1 mmol/L (3.4-5.1); Sodium 140 mmol/L (137-145)
== END ==
PROVIDERS: Family Provider Internal Medicine Cardiovascular Disease; PCP Internal Medicine; Referring Provider Internal Medicine; Visit Provider Internal Medicine
DX: E11.9 Type 2 diabetes mellitus without complications (principal); I10 Essential (primary) hypertension
CPT/HCPCS: 36415; 80048; 83036

== ENCOUNTER → 2024-12-01 08:49 | Outpatient (CLI) | payer MEDICARE, BC, SELFPAY ==
[2019-03-16 11:13] VITALS: BMI 29.8
[2024-12-01 09:37] LABS: Alanine Aminotransferase 32 IU/L (<50); Albumin 4.4 g/dL (3.5-5.0); Albumin Globulin Ratio 1.5 (1.0-2.8); Alkaline Phosphatase 48 U/L (38-126); Aspartate Aminotransferase 30 IU/L (17-59); BUN Creatinine Ratio 15.3 (6-22); Bilirubin Total 1.1 mg/dL (0.2-1.3); Blood Urea Nitrogen 18 mg/dL (9-20); Calcium 9.7 mg/dL (8.4-10.2); Carbon Dioxide 24 mmol/L (22-32); Chloride 106 mmol/L (98-107); Cholesterol 197 mg/dL (140-199); Estimated Glomerular Filt Rate > 60 mL/min (>60); Globulin 2.9 g/dL (1.7-4.1); Glucose 160 mg/dL (80-110); HDL Cholesterol 49 mg/dL (40-60); HEMOLYSIS 17 (0-50); LDL Cholesterol Calculated 129 mg/dL (<100); Potassium 4.1 mmol/L (3.4-5.1); Sodium 140 mmol/L (137-145); Total Protein 7.3 g/dL (6.3-8.2); Triglycerides 96 mg/dL (35-150)
== END ==
LOC: LAB 08:50
PROVIDERS: Family Provider Internal Medicine Cardiovascular Disease; PCP Internal Medicine; Referring Provider Internal Medicine; Visit Provider Internal Medicine
DX: E11.9 Type 2 diabetes mellitus without complications (principal); I10 Essential (primary) hypertension; E78.2 Mixed hyperlipidemia
CPT/HCPCS: 36415; 80053; 80061; 83036

== ENCOUNTER 2025-02-06 07:15 | Day surgery (SDC) | payer MEDICARE, BC, SELFPAY ==
[2019-03-16 11:13] VITALS: BMI 29.8
[2025-02-06] MEDS: LACTATED RINGERS 1,000 ML 42 ML IV (07:31)
[2025-02-06 07:34] VITALS: BP 136/83; PULSE 90; RESP 16; TEMP 36.1; O2SAT 98
--- NOTE | 2025-02-06 07:39 | P.HP_ITS ---
History of Present Illness History of Present Illness Date of Onset of Symptoms: 02/06/25 Chief complaint: Screening Colonoscopy [facility] Medical History (Updated 02/06/25 @ 07:41 by Leo Bradley MD) COVID-19 (~09/2022) BPH w urinary obs/LUTS Diabetes type 2, controlled Asthma Seasonal allergies Migraines (~1972) Shoulder pain (~2012) Gout (~1999) Impaired mobility and ADLs Gait disturbance, post-stroke Speech and language deficit as late effect of cerebrovascular accident (CVA) Mixed hyperlipidemia Thyroid nodule Atrial septal defect Diabetic neuropathy Essential hypertension H/O: stroke (~03/2019) Diabetes mellitus type 2, insulin dependent (~03/2019) Surgical History History of meniscectomy of left knee History of repair of hiatal hernia Family History Mother Gestational diabetes Father Hemorrhagic cerebrovascular accident (CVA) Cancer Sister Diabetes mellitus Mental health problem Social History household members: spouse Meds Home Medications and Allergies Home Medications Medication Instructions Recorded Confirmed Type aspirin 81 mg tablet,delayed 81 mg PO DAILY 04/03/19 02/06/25 History release lisinopril 5 mg tablet 5 mg PO DAILY #90 tabs 05/20/24 02/06/25 Rx Allergies Allergy/AdvReac Type Severity Reaction Status Date / Time atorvastatin AdvReac Intermediate leg cramps Verified 12/08/24 13:59 paprika AdvReac Intermediate GI Upset Verified 12/08/24 13:59 rosuvastatin [From Crestor] AdvReac Intermediate severe leg Verified 12/08/24 13:59 pain, worse than atorvastatin [place] AdvReac Severe Respiratory Uncoded 12/08/24 13:59 Distress grand kristian AdvReac Severe Respiratory Uncoded 12/08/24 13:59 Distress Review of Systems Review of Systems Narrative: Comprehensive review of systems negative to direct questioning with the exception of the previously mentioned chronic conditions. Exam Narrative Exam Narrative: In general this is a well-nourished well-developed male alert and oriented x3. He is hard of hearing but converses with the examiner using lip reading. Lungs are clear to auscultation. heart has a regular rate and rhythm with no murmur or gallop. abdomen is soft and nontender Assessment & Plan Assessment and plan (1) Encounter for screening colonoscopy: Status: Acute Plan I plan colonoscopy. Alternatives, risks and benefits were discussed in detail. Patient desires to proceed as I have outlined. Time-Based Coding :: [TOTAL MINUTES] spent with patient and on the chart (including review of chart, obtaining history, exam, reviewing outside data, placing orders, documenting exam and treatment plan, and counseling patient) on [DATE]. PROFEE Cattle Driver Document charge(s): Yes
--- NOTE | 2025-02-06 08:28 | PM.OP.COLON ---
Operative Date/Time/Diagnoses Date of procedure: 02/06/25 Time of procedure: 08:09 Pre-op diagnosis: Screening colonoscopy Post-op diagnosis: same Procedure & Clinicians Study performed: Colonoscopy Same procedure as scheduled: Yes Indications: Screen Surgeon: Leo Bradley Procedure Notes SCOAP/Timeout: 808 Procedure in detail: Patient was brought to the endo suite and was placed on the table in the left lateral decubitus position time-out protocol was observed. A 2 m flexible fiberoptic colonoscope was passed transanally into the rectum and clear around the cecum under direct endoscopic vision. Prep was marginal exam was performed retrograde. Cecum was positively identified at the confluence of the tenia coli. Cecum and ascending colon were normal in appearance as the scope was withdrawn. The hepatic flexure transverse colon and splenic flexures were similarly normal in appearance without evidence of mucosal abnormality. Descending colon demonstrated no evidence of polyp ulceration arteriovenous malformation were flat adenoma. Sigmoid colon was tortuous and heavily muscled however I detected no diverticula. Rectum was normal as the scope was withdrawn. Patient tolerated the procedure well and was transported to PACU in good condition Scope withdrawal time: 826 Specimen(s): none sent Complications: none Impression: Normal colon Post-procedure Recommendations: Colonoscopy in 5 years Plan for aftercare: Discharge when awake and alert. Follow up: as needed Disposition: PACU
[2025-02-06 08:31] VITALS: BP 105/62; PULSE 78; RESP 17; TEMP 36.4; O2SAT 99
[2025-02-06 08:35] VITALS: BP 98/71; PULSE 83; RESP 17; O2SAT 94
[2025-02-06 08:45] VITALS: BP 110/65; PULSE 83; RESP 15; TEMP 37; O2SAT 94
== END 2025-02-06 08:48 | disposition home or self-care (01) ==
PROVIDERS: Family Provider Internal Medicine Cardiovascular Disease; PCP Internal Medicine; Referring Provider Surgery; Visit Provider Surgery
PROC: 0DJD8ZZ Inspection of Lower Intestinal Tract, Via Natural or Artificial Opening Endoscopic (ICD-10-PCS; CPT 45378; principal; 2025-02-06 08:30)
DX: Z12.11 Encounter for screening for malignant neoplasm of colon (principal)
CPT/HCPCS: G0121; J2704

== ENCOUNTER → 2025-06-03 08:56 | Outpatient (CLI) | payer MEDICARE, BC, SELFPAY ==
[2019-03-16 11:13] VITALS: BMI 29.8
[2025-06-03 10:04] LABS: Hemoglobin A1C% w Est Avg Glu 6.9 % (4.0-6.0)
[2025-06-03 10:18] LABS: Alanine Aminotransferase 24 IU/L (<50); Albumin 4.3 g/dL (3.5-5.0); Albumin Globulin Ratio 1.5 (1.0-2.8); Alkaline Phosphatase 50 U/L (38-126); Blood Urea Nitrogen 24 mg/dL (9-20); Calcium 9.5 mg/dL (8.4-10.2); Carbon Dioxide 24 mmol/L (22-32); Chloride 104 mmol/L (98-107); Cholesterol 175 mg/dL (140-199); Estimated Glomerular Filt Rate > 60 mL/min (>60); Globulin 2.8 g/dL (1.7-4.1); Glucose 176 mg/dL (70-99); HDL Cholesterol 54 mg/dL (40-60); HEMOLYSIS < 15 (0-50); Potassium 4.3 mmol/L (3.4-5.1); Sodium 138 mmol/L (137-145); Total Protein 7.1 g/dL (6.3-8.2); Triglycerides 87 mg/dL (35-150)
[2025-06-03 10:35] LABS: Free T4, Direct Thyroxine 0.91 ng/dL (0.78-2.19)
[2025-06-03 10:49] LABS: Thyroid Stimulating Hormone 1.46 uIU/mL (0.47-4.68)
[2025-06-03 10:50] LABS: Microalbumi Creatinin Ratio Ur 7.0 ug/mg CR (<30)
== END ==
PROVIDERS: Family Provider Internal Medicine Cardiovascular Disease; PCP Internal Medicine; Referring Provider Internal Medicine; Visit Provider Internal Medicine
DX: E11.9 Type 2 diabetes mellitus without complications (principal); Z12.5 Encounter for screening for malignant neoplasm of prostate; I10 Essential (primary) hypertension; E78.2 Mixed hyperlipidemia
CPT/HCPCS: 36415; 80053; 80061; 82043; 82570; 83036; 84439; 84443; G0103